=== PATIENT | female | born 1955 | race Caucasian/White ===

== ENCOUNTER 2018-03-04 22:36 | Outpatient (CLI) | payer OTHER, MEDICAID | END 2018-03-04 22:37 | disposition critical access hospital (66) | LOC: EMS 22:36 | PROVIDERS: ATTEND Surgery | DX: R53.1 Weakness (principal); M79.604 Pain in right leg; R51 Headache; W18.30XA Fall on same level, unspecified, initial encounter; Y92.009 Unspecified place in unspecified non-institutional (private) residence as the place of occurrence of the external cause | CPT/HCPCS: A0425; A0429; A0999 ==

== ENCOUNTER 2018-03-04 22:52 | Inpatient (IN) | payer OTHER, MEDICAID ==
--- NOTE | 2018-03-04 22:59 | ED Physician Documentation ---
PD HPI LOWER EXT INJURY - Stated complaint Stated Complaint: FALL, LEFT LOWER WEAKNESS - History obtained from History obtained from: Patient, EMS - History of Present Illness PD HPI LOW EXT INJURY LOCATION: Right, Hip, Upper leg Type of injury: Fall Where injury occurred: Home Timing - onset: Today Timing - details: Abrupt onset Worsened by: Moving, Palpating Associated symptoms: Weakness Recently seen: Not recently seen - Additional information Additional information: Patient is a 63 year old female with a history of a prior cva, with left sided deficit who is presenting to the emergency department for fall. Patient was walking with her walker, felt weak and fell landing on her right side. patient denies any loc. Patient complains of spasm and pain in her right upper leg. Review of Systems Ten Systems: 10 systems reviewed and negative PD PAST MEDICAL HISTORY - Past Medical History Cardiovascular: Hypertension, High cholesterol Endocrine/Autoimmune: Type 2 diabetes Musculoskeletal: Chronic back pain - Past Surgical History Past Surgical History: Yes Ortho: Carpal Tunnel surgery, Other - Present Medications Home Medications: Ambulatory Orders Medication Instructions Recorded Confirmed Glimepiride [Amaryl] 4 mg PO BID 03/10/15 03/10/15 Omeprazole [Prilosec] 40 mg PO DAILY 03/10/15 03/10/15 Zolpidem [Ambien] 10 mg PO HS 03/10/15 03/10/15 Amiodarone [Pacerone] 100 mg PO DAILY 03/04/18 Clopidogrel Bisulfate [Clopidogrel] 75 mg PO DAILY 03/04/18 Diltiazem HCl [Diltiazem 24Hr ER] 120 mg PO DAILY 03/04/18 Empagliflozin [Jardiance] 25 mg PO DAILY 03/04/18 Escitalopram [Lexapro] 20 mg PO DAILY 03/04/18 Nebivolol HCl [Bystolic] 10 mg PO DAILY 03/04/18 Rivaroxaban [Xarelto] 10 mg PO DAILY 03/04/18 - Allergies Allergies/Adverse Reactions: Allergies Allergy/AdvReac Type Severity Reaction Status Date / Time ciprofloxacin HCl * Allergy Unknown Verified 03/04/18 22:59 [From Cipro] - Social History Does the pt smoke?: No Smoking Status: Never smoker Does the pt drink ETOH?: No Does the pt have substance abuse?: No - Immunizations Immunizations are current?: Yes - POLST Patient has POLST: No PD ED PE NORMAL - Vitals Vital signs reviewed: Yes - General General: Alert and oriented X 3 - HEENT HEENT: Atraumatic - Cardiac Cardiac: RRR - Respiratory Respiratory: No respiratory distress - Abdomen Abdomen: Non distended - Derm Derm: Normal color - Extremities Extremities: No deformity - Neuro Neuro: Alert and oriented X 3 PD ED PE EXPANDED - HEENT HEENT: Dry mucous membranes - Extremities Extremities: Right hip, Right thigh (mild tenderness to palpatioin), Pedal Pulses Present, Sensory intact, Vascular intact, Tendon intact. No: Cold foot Results - Vitals Vitals: Vital Signs - 24 hr 03/04/18 22:53 Temperature 36.5 C Heart Rate 78 Respiratory 16 Rate Blood Pressure 174/81 H O2 Saturation 97 Oxygen O2 Source Room air - EKG (time done) 0016 Rate: Rate (enter#) (72) Rhythm: NSR [place]: Normal Ischemia: Q waves Compare to prior EKG: Old EKG unavailable - Labs Labs: Laboratory Tests 03/04/18 03/04/18 23:05 23:35 WBC 8.3 RBC 4.49 Hgb 14.5 Hct 43.2 MCV 96.2 MCH 32.2 H MCHC 33.5 RDW 13.6 Plt Count 288 MPV 8.4 Neut # (Auto) 4.4 Lymph # (Auto) 3.2 Cooper # (Auto) 0.4 Eos # (Auto) 0.2 Baso # (Auto) 0.1 Absolute Nucleated RBC 0.01 Nucleated RBC % 0.1 Sodium 137 Potassium 4.6 Chloride 103 Carbon Dioxide 25 Anion Gap 9.0 BUN 16 Creatinine 0.9 Estimated GFR (MDRD) 63 L Glucose 207 H Calcium 9.1 Phosphorus 3.9 Magnesium 2.4 Total Bilirubin 0.6 AST 23 ALT 27 Alkaline Phosphatase 124 H Total Protein 7.3 Albumin 4.0 Globulin 3.3 Albumin/Globulin Ratio 1.2 Lipase 29 - Rads (name of study) right hip Radiology: Final report received (sub capital fracture) PD MEDICAL DECISION MAKING - ED course Complexity details: reviewed old records, reviewed results, re-evaluated patient , considered differential, d/w patient, d/w mortgage consultant ED course: Patient was seen and examined at bedside. labs were drawn and imaging was ordered. When patient returned from imaging the results were reviewed and consistent with a right hip fracture. Dr. Reardon, orthopedist was contacted and the case was discussed with him. He stated that the patient should be admitted to the hospitalist and he would consult. Hospitalist was contacted and the case was discussed with her. patient was admitted for further care. - Sepsis Event Vital Signs: Vital Signs - 24 hr 03/04/18 22:53 Temperature 36.5 C Heart Rate 78 Respiratory 16 Rate Blood Pressure 174/81 H O2 Saturation 97 Oxygen O2 Source Room air Departure - Departure Disposition: 67 [facility] DC/Xfer Clinical Impression: Hip fracture, right Condition: Good
[2018-03-04 23:19] LABS: BASOPHILS # (AUTO) 0.1 10^3/uL (0.0-0.1); BASOPHILS % (AUTO) 0.9 %; EOSINOPHILS # (AUTO) 0.2 10^3/uL (0.0-0.7); EOSINOPHILS % (AUTO) 2.2 %; HGB - HEMOGLOBIN 14.5 g/dL (12.0-16.0); LYMPHOCYTES # (AUTO) 3.2 10^3/uL (1.5-3.5); LYMPHOCYTES % (AUTO) 38.2 %; MEAN CORPUSCULAR HEMOGLOBIN 32.2 pg (27.0-31.0); MEAN CORPUSCULAR HGB CONC 33.5 g/dL (32.0-36.0); MEAN CORPUSCULAR VOLUME 96.2 fL (81.0-99.0); MEAN PLATELET VOLUME 8.4 fL (7.9-10.8); MONOCYTES # (AUTO) 0.4 10^3/uL (0.0-1.0); MONOCYTES % (AUTO) 5.3 %; NEUTROPHILS # (AUTO) 4.4 10^3/uL (1.5-6.6); NEUTROPHILS % (AUTO) 53.4 %; PLT - PLATELET COUNT 288 10^3/uL (130-450); RED BLOOD COUNT 4.49 10^6/uL (4.20-5.40); RED CELL DISTRIBUTION WIDTH 13.6 % (12.0-15.0); WHITE BLOOD COUNT 8.3 x10^3/uL (4.8-10.8)
[2018-03-04] MEDS ORDERED: SODIUM CHLORIDE 0.9% 1,000 ML IV SCH (23:45)
[2018-03-04] MEDS ORDERED: ACETAMINOPHEN 500 MG TABLET PO STA (23:45)
--- NOTE | 2018-03-04 23:49 | XRAY Report ---
Procedure Date: 03/04/2018 Accession Number: [id number] / [id number] Procedure: XR - Hip w/Pelvis 2-3V RT CPT Code: FULL RESULT: EXAM: RIGHT HIP AND PELVIS RADIOGRAPHY EXAM DATE: 03/04/2018 11:21 PM. HISTORY: Fall, right leg pain. COMPARISONS: None. TECHNIQUE: 1 view of the pelvis and 1 view of the hip. FINDINGS: Bones: Subcapital right hip fracture. Joints: No dislocation seen. Joint spaces are fairly well preserved for age. Soft Tissues: Vascular calcifications. IMPRESSION: 1. Subcapital right hip fracture. RADIA
[2018-03-04 23:55] LABS: ALBUMIN/GLOBULIN RATIO 1.2 (1.0-2.2); BILIRUBIN,TOTAL 0.6 mg/dL (0.2-1.0); CALCIUM 9.1 mg/dL (8.5-10.3); CREATININE 0.9 mg/dL (0.4-1.0); MAGNESIUM 2.4 mg/dL (1.7-2.8); PHOSPHORUS 3.9 mg/dL (2.5-4.6); TOTAL PROTEIN 7.3 g/dL (6.7-8.2)
[2018-03-04] MEDS ORDERED: ONDANSETRON 4 MG/2 ML VIAL IVP PRN (23:59)
[2018-03-05] MEDS ORDERED: MORPHINE 10 MG/ML VIAL IVP STA (00:04)
[2018-03-05 00:19] LABS: INR 1.3 (0.8-1.2); PT - PROTHROMBIN TIME 14.6 secs (9.9-12.6)
--- NOTE | 2018-03-05 01:12 | HISTORY & PHYSICAL EXAMINATION ---
Chief Complaint - Chief Complaint Chief Complaint: Ground level fall with subcapital R hip fracture History of Present Illness - Admitted From Admitted From:: ED. Orders written 03/04 at 23:59 - History Obtained From Records Reviewed: [facility] History obtained from: Patient and Sister Exam Limitations: psychomotor slowing and memory loss from stroke residual - History of Present Illness HPI Comment/Other: Gato Patel is a 63 y/o F with a PMH of a CVA with residual L sided weakness , gait instability, and bowel/bladder incontinence; atrial fibrillation on rivaroxaban; CAD s/p stent placement; DM type 2; and depression who presented with a subcapital R hip fracture sustained in [facility] around 2100 this evening. She was ambulating with her walker, tripped, fell backwards onto her R hip, and was unable to return to standing or bear weight on her RLE. She denies any dizziness or syncope leading up to the fall or loss of consciousness. Her sister , who she has been staying with, assisted her off of the floor and pt was diagnosed radiographically upon presentation to the ED. Prior to this event, Ms. Patel was in her usual state of health which was been complicated by the residual deficits from her CVA which have left her unable to reside alone (mostly due to her gait instability, as she reports that she maintains independence in her ADLs). For the past month she has been vacationing in [place] and staying with her sister while her is out of the country visiting family. She does endorse that she had a previous fall in October of this year which was preceded by a syncopal episode where she fell and hit her head, resulting in a nonoperative foot fracture and "blood spots on her brain", which required a 3 day hospitalization. She also reports that she had a coronary stent placed approximately 2 months ago as the result of an abnormal stress test, she is unsure of the details of this procedure, but was started on clopidogrel at that time. She also states she had either a Heart Link or Reveal Loop put in as part of her atrial fib work up as well. On ROS prior to surgery: she denies chest pain, BARNETT, SOB at rest. There is no hx of CHF or valvular heart disease She has no palpitations with her positive hx of afib. There is no cough, wheezing, chest congestion. She did have a coronary stent 2 months ago but her memory seems impaired from her stroke. There is no hx of CKD. History - Past Medical History Cardiovascular: reports: Hypertension, High cholesterol, Coronary artery disease , Atrial fibrillation Neuro: reports: CVA (with residual L sided weakness, gait instability, and bowel /bladder incontinence), Headaches (daily since CVA) Endocrine/Autoimmune: reports: Type 2 diabetes (for 6 years, without complications, not on insulin) GI: reports: Other (Stool Incontinence) : reports: Incontinence Psych: reports: Depression Musculoskeletal: reports: Osteoarthritis, Chronic back pain Derm: reports: Other (incontinence dermatitis) MRSA Hx?: No - Past Surgical History Ortho: reports: Shoulder arthroplasty, Carpal Tunnel surgery /CRYSTALIZER: reports: Hysterectomy (with bladder lift) Cardiovascular: reports: Coronary stent - Family & Social History Family History: Mother: , Father: Family History Comment/Other: Pt unsure of ages at but stated both were in their 70s and both of CHF. Living arrangement: At home Living Situation: With spouse/s.o. Social History Notes: Pt lives in [place], [place] and has been staying with her sister, Jessica, who resides in [place] for the past month while her is visiting family in [facility]. Since her CVA last year, she has had unsteady gait and falls, so cannot live alone. She ambulates with a walker and maintains independence in ADLs. 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 2 adult children. - Substance History Use: Uses substance without health or social issues: NONE - POLST Patient has POLST: No POLST Status: Full Code Meds/Allgy - Home Medications Home Medications: Ambulatory Orders Medication Instructions Recorded Confirmed Glimepiride [Amaryl] 4 mg PO BID 03/10/15 03/10/15 Omeprazole [Prilosec] 40 mg PO DAILY 03/10/15 03/10/15 Zolpidem [Ambien] 10 mg PO HS 03/10/15 03/10/15 Amiodarone [Pacerone] 100 mg PO DAILY 03/04/18 Clopidogrel Bisulfate [Clopidogrel] 75 mg PO DAILY 03/04/18 Diltiazem HCl [Diltiazem 24Hr ER] 120 mg PO DAILY 03/04/18 Empagliflozin [Jardiance] 25 mg PO DAILY 03/04/18 Escitalopram [Lexapro] 20 mg PO DAILY 03/04/18 Nebivolol HCl [Bystolic] 10 mg PO DAILY 03/04/18 Rivaroxaban [Xarelto] 10 mg PO DAILY 03/04/18 Evolocumab [Repatha Sureclick] 140 mg SQ DAILY 03/05/18 03/05/18 - Allergies Allergies/Adverse Reactions: Allergies Allergy/AdvReac Type Severity Reaction Status Date / Time ciprofloxacin HCl * Allergy Hives Verified 03/05/18 02:07 [From [facility]] Review of Systems - Constitutional Constitutional: denies: Fatigue, Fever, Chills, Malaise - Eyes Eyes: denies: Pain, Irritation, Blurred vision - Ears, Nose & Throat Ears, Nose & Throat: denies: Hearing loss, Sore throat, Hoarseness - Cardiovascular Cariovascular: reports: Irregular heart rate. denies: Palpitations, Chest pain , Edema, Syncope, Exertional dyspnea, Orthopnea - Respiratory Respiratory: denies: Cough, Wheezing, SOB at rest, SOB with exertion - Gastrointestinal Gastrointestinal: denies: Abdominal pain, Abdominal distention, Constipation, Change in bowel habits, Black stools, Bloody stools, Nausea, Vomiting - Genitourinary Genitourinary: reports: Incontinence (stool and urine since CVA), Other (Rash to epifanio area). denies: Dysuria, Hematuria, Urethral discharge - Musculoskeletal Musculoskeletal: reports: Muscle pain (RLE cramping pain that radiates down leg , "feels like a charley horse"), Back pain (chronic, recieving steroid injections every 3 months and taking PRN vicodin for pain for past 2 years), Limited range of motion (Unable to lift RLE) - Integumentary Integumentary: denies: Lesions, Dryness - Neurological Neurological: reports: Focal weakness (L sided residual weakness from CVA), Headache (Daily headaches since CVA), Pre-existing deficit, Abnormal gait ( ambulates with walker), Incoordination. denies: Dizziness, Numbness, Memory problems - Psychiatric Psychiatric: reports: Depression. denies: Suicidal - Hematologic/Lymphatic Hematologic/Lymphatic: reports: Bruising. denies: Blood clots, Bleeding tendencies - All Other Systems All Other Systems: reports: Reviewed and negative Exam - Vital Signs Reviewed Vital Signs: Yes Vital Signs: Selected Entries 03/05/18 01:18 Temperature 37.2 C Heart Rate [ 79 Brachial] Respiratory 20 Rate Blood Pressure 149/73 H [Left Brachial artery] O2 Saturation 92 - Physical Exam General Appearance: positive: No acute distress, Alert, Other (White who has flattened affect, slow to respond, looks stated age.) Eyes Bilateral: positive: PERRL, EOMI, No scleral icterus ENT: positive: No signs of dehydration Neck: positive: Trachea midline Respiratory: positive: Chest non-tender, No respiratory distress, Breath sounds nml Cardiovascular: positive: Regular rate & rhythm, No murmur. negative: Gallop/S4 , Friction rub Peripheral Pulses: positive: 1+ Abdomen: positive: Non-tender, No organomegaly, Nml bowel sounds, No distention Skin: positive: Warm, Dry, Skin rash (incontinence dermatitis on labia) Extremities: positive: No pedal edema, Other (Mild tenderness to lateral R thigh , limited ROM, unable to lift R leg. Small scattered healing bruises to L anne.) . negative: Joint swelling Neurologic/Psychiatric: positive: Oriented x3, Sensation nml, Weakness (L sided weakness, at baseline since CVA per patient). negative: Mood/affect nml (vague at times: thinks that link insertion was 2 weeks ago but here for a month), Sensory loss, Facial droop Conclusion/Plan - Problem List (1) Hip fracture, right Conclusion/Plan: Pelvic x-ray shows a supcapital R hip fracture without dislocation. We will admit to evaluate her for surgery and consult the orthopedic surgery team. * Orthopedic surgery consultation * NPO now for possible surgery * IV hydration with normal saline while NPO * Hold clopidogrel and rivaroxaban pending surgery * PRN IV dilaudid for pain * Bedrest Qualifiers: Encounter type: initial encounter Fracture type: closed Qualified Code(s) : S72.001A - Fracture of unspecified part of neck of right femur, initial encounter for closed fracture (2) Preop cardiovascular exam Conclusion/Plan: Ms. Patel has a PMH of atrial fibrillation on rivaroxaban, diltiazem, and amiodarone, as well as CAD s/p recent coronary stent placement (pt unclear of exactly when this took place, said within the past couple of months) said to have been in response to an abnormal stress test she had during her afib work up after her CVA last year. She most recently (approx. 1 month ago) had what sounds like a Reveal Linq (pt was unsure of actual device name) placed for unclear reasons, but I suspect that it was for work up of a syncopal episode she experienced in October. We have attempted to contact her PCP for more information. * Revised Cardiac Risk Assessment: * 2 points (hx of ischemic cardiac disease and hx of cerebrovascular disease), Class III risk, indicating a 6.6% risk of major cardiac event (3) Atrial fibrillation Conclusion/Plan: History of atrial fibrillation, diagnosed in 2017 after CVA, on rivaroxaban, diltiazem, and amiodarone. CHADS-VASC score 4, indicating moderate/high stroke risk. Admission EKG shows NSR in 70s. Will attempt to find outside records with further information. * Continue home diltiazem and amiodarone * Hold rivaroxaban for surgery, restart anticoagulation immediately following surgery given moderate/high stroke risk Qualifiers: Atrial fibrillation type: unspecified Qualified Code(s): I48.91 - Unspecified atrial fibrillation (4) Presence of stent in coronary artery in patient with coronary artery disease Conclusion/Plan: Patient reports recent coronary stent placement (unclear of date and details, approximated 2 months ago) in response to an abnormal stress test and was then subsequently started on clopidogrel. * Continue home beta dolly (nebivolol) * Hold clopidogrel, restart after surgery given presumed BENJAMÍN * Follow up on outside records * Check post op troponins. (5) History of stroke with residual deficit Conclusion/Plan: Previous residual deficits of L sided weakness, gait instability, and bowel/ bladder incontinence may complicate postoperative rehabilitation process. Patient was ambulating with walker prior to injury and gait instability appears to have led to fall. * consult PT/OT after surgery (6) Diabetes type 2, controlled Conclusion/Plan: Reportedly well controlled on oral antiglycemics and without complications for past 6 years. * Hold home empagliflozin and glimepiride * Start medium dose SSI with q6h POC blood glucose testing while NPO * HgbA1C with am labs Qualifiers: Diabetes mellitus intermediate project manager insulin use: without intermediate use Diabetes mellitus complication status: without complication Qualified Code(s): E11.9 - Type 2 diabetes mellitus without complications (7) Hyperlipidemia Conclusion/Plan: Unclear history of hyperlipidemia. Ms. Patel was recently started on evolocumab, she believes after her coronary stent placement, presumably for hyperlipidemia and/or secondary prevention of ASCVD. * Continue home evolocumab * Will consider cholesterol levels if unable to find outside records especially since evolocumab is for secondary treatment of familial hyperlipidemia or primary treatment for hyperlipidemia with a statin. Qualifiers: Hyperlipidemia type: unspecified Qualified Code(s): E78.5 - Hyperlipidemia , unspecified (8) Incontinence associated dermatitis Conclusion/Plan: Hx of incontinence of urine and stool since prior stroke with utilization of adult diapers. Pt reports a rash to epifanio area for past month, seen by PRODUCTION CONTROL SCHEDULER prior to coming to [place] and has been treating with an unknown prescription ointment with improvement of symptoms. States it is much improved since initial diagnosis. Redness and irritation noted to labia. Endorses some pruitis (improved since diagnosis) but denies pain, discharge, or lesions. Sister encouraged to bring name of ointment when she is able to retrieve it from home, in the mean time, barrier cream applied by nursing staff. (9) Depression Conclusion/Plan: Continue home escitalopram Qualifiers: Depression Type: unspecified Qualified Code(s): F32.9 - Major depressive disorder, single episode, unspecified (10) Osteoarthritis Conclusion/Plan: Osteoarthritis of "low back" with chronic low back pain treated with steroid injections every 3 months and PRN vicodin for past 2 years. Reports taking approx 2 vicodins per day. * Monitor for adequate pain control * PRN IV dilaudid Qualifiers: Osteoarthritis location: spine Spinal region: unspecified - Lab Results Lab results reviewed: Yes Fish Bones: 03/05/18 04:30 03/05/18 04:30 - Diagnostic Imaging Results Diagnostic Imaging Results: positive: Final report reviewed Diagnostic Imaging Results Comments: Radiograph of pelvis shows subcapital R hip fracture without dislocation - EKG Results EKG Comparison: Old EKG unavailable EKG Findings: Admission EKG shows normal sinus rhythm Core Measures - Anticipated LOS I expect patient to be DC'd or transferred within 96 hours.: Yes - DVT/VTE - Prophylaxis VTE/DVT Device ordered at admit?: Yes Not Ordered - Medical Reason: Not indicated (On rivaroxaban)
[2018-03-05] MEDS: HYDROmorphone 0.5 MG/0.5 ML SYRINGE IVP PRN ×6 (01:34→21:09)
[2018-03-05] MEDS: MIN OIL/DIMETHICON/COCONUT OIL 92 GM TUBE TOP PRN (01:34)
[2018-03-05] MEDS: SODIUM CHLORIDE FLUSH 0.9% 10 ML SYRINGE IVP SCH ×3 (01:34→16:02)
[2018-03-05 04:55] LABS: CALCIUM 8.8 mg/dL (8.5-10.3); CREATININE 0.7 mg/dL (0.4-1.0)
[2018-03-05 05:00] LABS: BASOPHILS % (AUTO) 0.4 %; EOSINOPHILS % (AUTO) 0.3 %; HGB - HEMOGLOBIN 13.4 g/dL (12.0-16.0); LYMPHOCYTES # (AUTO) 1.9 10^3/uL (1.5-3.5); LYMPHOCYTES % (AUTO) 16.7 %; MEAN CORPUSCULAR HEMOGLOBIN 32.1 pg (27.0-31.0); MEAN CORPUSCULAR HGB CONC 33.9 g/dL (32.0-36.0); MEAN CORPUSCULAR VOLUME 94.5 fL (81.0-99.0); MEAN PLATELET VOLUME 8.4 fL (7.9-10.8); MONOCYTES # (AUTO) 0.7 10^3/uL (0.0-1.0); MONOCYTES % (AUTO) 6.6 %; NEUTROPHILS # (AUTO) 8.5 10^3/uL (1.5-6.6); PLT - PLATELET COUNT 254 10^3/uL (130-450); RED BLOOD COUNT 4.18 10^6/uL (4.20-5.40); RED CELL DISTRIBUTION WIDTH 13.3 % (12.0-15.0); WHITE BLOOD COUNT 11.2 x10^3/uL (4.8-10.8)
[2018-03-05] MEDS ORDERED: diazePAM 5 MG TABLET PO SCH (05:00)
[2018-03-05 05:29] LABS: HB2 TOTAL 14.9 g/dL; HEMOGLOBIN A1C 1.05 g/dL; HEMOGLOBIN A1C % 8.6 % (4.6-6.2)
[2018-03-05] MEDS: INSULIN REGULAR HUMAN 100 UNIT/1 ML 10 ML MDV SUBQ SCH ×3 (06:14→16:02)
[2018-03-05] MEDS: POLYETHYLENE GLYCOL 3350 17 GM PACKET PO SCH (07:40)
[2018-03-05] MEDS: diazePAM 5 MG TABLET PO PRN ×3 (08:01→20:32)
[2018-03-05] MEDS: AMIODARONE 200 MG TABLET PO SCH (10:50)
[2018-03-05] MEDS: diltiaZEM CD 120 MG CAPSULE PO SCH (10:50)
[2018-03-05] MEDS: INSULIN ASPART 300 UNIT/3 ML PEN SUBQ SCH ×3 (12:07→20:34)
[2018-03-05] MEDS: HYDROcod/ACETAM 5/325 MG TABLET PO PRN ×2 (12:24→23:36)
[2018-03-05] MEDS: SODIUM CHLORIDE 0.9% 1,000 ML IV SCH (13:13)
--- NOTE | 2018-03-05 14:46 | PROVIDER PROGRESS NOTE ---
Subjective - Prog Note Date Prog Note Date: 03/05/18 - Subjective Pt reports feeling: Improved Subjective: pt report her hip pain is controlled. Because pt took her Xarelto and Plavix yesterday, the hip repair is hold. Follow up orthopedics for hip repair Current Medications - Current Medications Current Medications: Active Medications Hydrocodone Bitart/Acetaminophen ([place] 5/325) 1 tab PO BID PRN PRN Reason: PAIN Last Admin: 03/05/18 12:24 Dose: 1 tab Amiodarone HCl (Pacerone) 200 mg PO DAILY [facility] Last Admin: 03/05/18 10:50 Dose: 200 mg Diazepam (Valium) 5 mg PO TID PRN PRN Reason: Anxiety Last Admin: 03/05/18 13:45 Dose: 5 mg Diltiazem HCl (Cardizem Cd) 120 mg PO DAILY [facility] Last Admin: 03/05/18 10:50 Dose: 120 mg Hydromorphone HCl (Dilaudid Inj Syringe) 0.5 mg IVP Q2H PRN PRN Reason: Pain 8 to 10 Last Admin: 03/05/18 10:50 Dose: 0.5 mg Sodium Chloride (Normal Saline 0.9%) 1,000 mls @ 75 mls/hr IV .[id number] [facility] Last Admin: 03/05/18 13:13 Dose: 75 mls/hr Insulin Aspart (Novolog) 1 - 9 unit SUBQ 0800,1200,1700,2100 ACE PRN Reason: Protocol Last Admin: 03/05/18 12:07 Dose: 1 unit Insulin Human Regular (Novolin R) 1 - 9 unit SUBQ Q6HR [facility] PRN Reason: Protocol Last Admin: 03/05/18 10:32 Dose: Not Given Mineral Oil (Cavilon) 1 applic TOP PRN PRN PRN Reason: Skin Care Last Admin: 03/05/18 01:34 Dose: 1 applic Ondansetron HCl (Zofran Inj) 4 mg IVP Q6HR PRN PRN Reason: Nausea / Vomiting (Nebivolol Hcl [ (Bystolic] 10 Mg) Tab) 1 each PO BID [facility] Last Admin: 03/05/18 11:58 Dose: 1 each Polyethylene Glycol (Miralax) 17 gm PO DAILY [facility] Last Admin: 03/05/18 07:40 Dose: Not Given Sodium Chloride (Normal Saline Flush 0.9%) 10 ml IVP PRN PRN PRN Reason: NEEDED PER PROVIDER ORDERS Sodium Chloride (Normal Saline Flush 0.9%) 10 ml IVP 0100,0900,1700 ACE Last Admin: 03/05/18 07:40 Dose: Not Given Zolpidem [Ambien] 10 mg PO QPM 03/10/15 Amiodarone [Pacerone] 200 mg PO DAILY 03/04/18 Clopidogrel Bisulfate [Clopidogrel] 75 mg PO DAILY 03/04/18 Diltiazem HCl [Diltiazem 24Hr ER] 120 mg PO DAILY 03/04/18 Escitalopram [Lexapro] 10 mg PO DAILY 03/04/18 Nebivolol HCl [Bystolic] 10 mg PO BID 03/04/18 Rivaroxaban [Xarelto] 20 mg PO DAILY 03/04/18 Empagliflozin [Jardiance] 25 mg PO DAILY 03/05/18 Evolocumab [Repatha Sureclick] 140 mg SUBQ Q14D 03/05/18 HYDROcod/ACETAM 5/325 [[place] 5/325] 1 tab PO BID PRN 03/05/18 Pramipexole Di-HCl [Mirapex ER] 0.75 mg PO QPM PRN 03/05/18 Objective - Vital Signs/Intake & Output Reviewed Vital Signs: Yes Vital Signs: Vital Signs x48h Temp Pulse Resp BP Pulse Ox 03/05/18 10:49 75 140/68 H 03/05/18 07:39 36.9 C 72 19 120/71 94 Intake & Output: Intake & Output 03/02/18 03/03/18 03/04/18 03/05/18 23:59 23:59 23:59 23:59 Intake Total 1480.0 Output Total 450 Balance 1030.0 - Objective General Appearance: positive: No acute distress, Alert. negative: Lethargic Eyes Bilateral: positive: Normal inspection, PERRL, No lid inflammation, Conjunctivae nml ENT: positive: ENT inspection nml, Pharynx nml, No signs of dehydration. negative: Purulent nasal drainage, Pharyngeal erythema, Oral lesions Neck: positive: Nml inspection, Thyroid nml, No JVD, Trachea midline. negative : Thyromegaly, Lymphadenopathy (R), Lymphadenopathy (L), Stiff neck, Carotid bruit, Swelling/bruising, Tracheal deviation Respiratory: positive: Chest non-tender, No respiratory distress, Breath sounds nml. negative: Wheezes, Rales, Rhonchi Cardiovascular: positive: Regular rate & rhythm, No murmur, No gallop. negative : Irregularly irregular, Extrasystoles, Tachycardia, Bradycardia, JVD present, Systolic murmur, Diastolic murmur Peripheral Pulses: 2+ Radial (R), 2+ Radial (L), 2+ Dorsalis pedis (R), 2+ Dorsalis pedis (L) Abdomen: positive: Non-tender, No organomegaly, Nml bowel sounds, No distention. negative: Tenderness, Guarding, Rebound Back: positive: Nml inspection. negative: CVA tenderness (R), CVA tenderness (L ) Skin: positive: Color nml, No rash, Warm, Dry. negative: Cyanosis, Diaphoresis , Pallor Extremities: negative: Calf tenderness, Joint swelling, Doni's sign/cords Neurologic/Psychiatric: positive: Oriented x3, Mood/affect nml. negative: Weakness, Sensory loss, Facial droop, Slurred/abnml speech, Depressed mood/ affect - Lab Results Fish Bones: 03/05/18 04:30 03/05/18 04:30 Other Labs: Lab Results x24hrs 03/05/18 03/05/18 03/05/18 Range/Units 04:30 04:30 04:30 WBC 11.2 H (4.8-10.8) x10^3/uL RBC 4.18 L (4.20-5.40) 10^6/uL Hgb 13.4 (12.0-16.0) g/dL Hct 39.5 (37.0-47.0) % MCV 94.5 (81.0-99.0) fL MCH 32.1 H (27.0-31.0) pg MCHC 33.9 (32.0-36.0) g/dL RDW 13.3 (12.0-15.0) % Plt Count 254 (130-450) 10^3/uL MPV 8.4 (7.9-10.8) fL Neut # (Auto) 8.5 H (1.5-6.6) 10^3/uL Lymph # (Auto) 1.9 (1.5-3.5) 10^3/uL [place] # (Auto) 0.7 (0.0-1.0) 10^3/uL Eos # (Auto) 0.0 (0.0-0.7) 10^3/uL Baso # (Auto) 0.0 (0.0-0.1) 10^3/uL Absolute Nucleated RBC 0.00 x10^3/uL Nucleated RBC % 0.0 /100WBC PT (9.9-12.6) secs INR (0.8-1.2) APTT (24.9-33.3) secs Sodium 137 (135-145) mmol/L Potassium 4.1 (3.5-5.0) mmol/L Chloride 103 (101-111) mmol/L Carbon Dioxide 25 (21-32) mmol/L Anion Gap 9.0 (6-13) BUN 14 (6-20) mg/dL Creatinine 0.7 (0.4-1.0) mg/dL Estimated GFR (MDRD) 85 L (>89) Glucose 214 H (70-100) mg/dL Glycated Hemoglobin 8.6 H (4.6-6.2) % Estim Average Glucose 200 H (70-100) Calcium 8.8 (8.5-10.3) mg/dL 03/05/18 Range/Units 00:10 WBC (4.8-10.8) x10^3/uL RBC (4.20-5.40) 10^6/uL Hgb (12.0-16.0) g/dL Hct (37.0-47.0) % MCV (81.0-99.0) fL MCH (27.0-31.0) pg MCHC (32.0-36.0) g/dL RDW (12.0-15.0) % Plt Count (130-450) 10^3/uL MPV (7.9-10.8) fL Neut # (Auto) (1.5-6.6) 10^3/uL Lymph # (Auto) (1.5-3.5) 10^3/uL [place] # (Auto) (0.0-1.0) 10^3/uL Eos # (Auto) (0.0-0.7) 10^3/uL Baso # (Auto) (0.0-0.1) 10^3/uL Absolute Nucleated RBC x10^3/uL Nucleated RBC % /100WBC PT 14.6 H (9.9-12.6) secs INR 1.3 H (0.8-1.2) APTT 27.4 (24.9-33.3) secs Sodium (135-145) mmol/L Potassium (3.5-5.0) mmol/L Chloride (101-111) mmol/L Carbon Dioxide (21-32) mmol/L Anion Gap (6-13) BUN (6-20) mg/dL Creatinine (0.4-1.0) mg/dL Estimated GFR (MDRD) (>89) Glucose (70-100) mg/dL Glycated Hemoglobin (4.6-6.2) % Estim Average Glucose (70-100) Calcium (8.5-10.3) mg/dL ABX Reporting Has patient been on IV antibiotics over the past 48 hours?: No Assessment/Plan - Problem List (1) Hip fracture, right Impression: Conclusion/Plan: 03/05 hip repair will be hold today per orthopedics, pt took Xaralto on yesterday , will follow up orthopedics. refer from update" Rivaroxaban can be discontinued approximately two to three days before a procedure" "Rivaroxaban can be resumed postoperatively when hemostasis has been achieved, at the same dose the patient was receiving preoperatively." continue pain control resume home norco regimen Pelvic x-ray shows a supcapital R hip fracture without dislocation. We will admit to evaluate her for surgery and consult the orthopedic surgery team. * Orthopedic surgery consultation * NPO now for possible surgery * IV hydration with normal saline while NPO * Hold clopidogrel and rivaroxaban pending surgery * PRN IV dilaudid for pain * Bedrest (2) Preop cardiovascular exam Conclusion/Plan: Ms. Patel has a PMH of atrial fibrillation on rivaroxaban, diltiazem, and amiodarone, as well as CAD s/p recent coronary stent placement (pt unclear of exactly when this took place, said within the past couple of months) said to have been in response to an abnormal stress test she had during her afib work up after her CVA last year. She most recently (approx. 1 month ago) had what sounds like a Reveal Linq (pt was unsure of actual device name) placed for unclear reasons, but I suspect that it was for work up of a syncopal episode she experienced in October. We have attempted to contact her PCP for more information. * Revised Cardiac Risk Assessment: * 2 points (hx of ischemic cardiac disease and hx of cerebrovascular disease), Class III risk, indicating a 6.6% risk of major cardiac event (3) Atrial fibrillation Conclusion/Plan: History of atrial fibrillation, diagnosed in 2017 after CVA, on rivaroxaban, diltiazem, and amiodarone. CHADS-VASC score 4, indicating moderate/high stroke risk. Admission EKG shows NSR in 70s. Will attempt to find outside records with further information. * Continue home diltiazem and amiodarone * Hold rivaroxaban for surgery, restart anticoagulation immediately following surgery given moderate/high stroke risk (4) Presence of stent in coronary artery in patient with coronary artery disease Conclusion/Plan: Patient reports recent coronary stent placement (unclear of date and details, approximated 2 months ago) in response to an abnormal stress test and was then subsequently started on clopidogrel. * Continue home beta dolly (nebivolol) * Hold clopidogrel, restart after surgery given presumed BENJAMÍN * Follow up on outside records * Check post op troponins. (5) History of stroke with residual deficit Conclusion/Plan: Previous residual deficits of L sided weakness, gait instability, and bowel/ bladder incontinence may complicate postoperative rehabilitation process. Patient was ambulating with walker prior to injury and gait instability appears to have led to fall. * consult PT/OT after surgery (6) Diabetes type 2, controlled Conclusion/Plan: 03/05, start insulin slide scale on eating status, ACHS, hypoglycemia Reportedly well controlled on oral antiglycemics and without complications for past 6 years. * Hold home empagliflozin and glimepiride * Start medium dose SSI with q6h POC blood glucose testing while NPO * HgbA1C with am labs (7) Hyperlipidemia Conclusion/Plan: Unclear history of hyperlipidemia. Ms. Patel was recently started on evolocumab, she believes after her coronary stent placement, presumably for hyperlipidemia and/or secondary prevention of ASCVD. * Continue home evolocumab * Will consider cholesterol levels if unable to find outside records especially since evolocumab is for secondary treatment of familial hyperlipidemia or primary treatment for hyperlipidemia with a statin. (8) Incontinence associated dermatitis Conclusion/Plan: Hx of incontinence of urine and stool since prior stroke with utilization of adult diapers. Pt reports a rash to epifanio area for past month, seen by [facility] [facility] prior to coming to [place] and has been treating with an unknown prescription ointment with improvement of symptoms. States it is much improved since initial diagnosis. Redness and irritation noted to labia. Endorses some pruitis (improved since diagnosis) but denies pain, discharge, or lesions. Sister encouraged to bring name of ointment when she is able to retrieve it from home, in the mean time, barrier cream applied by nursing staff. (9) Depression Conclusion/Plan: Continue home escitalopram (10) Osteoarthritis Conclusion/Plan: 03/05 continue pain control resume home [place] regimen PRN IV dilaudid Add diazepam PRN Osteoarthritis of "low back" with chronic low back pain treated with steroid injections every 3 months and PRN vicodin for past 2 years. Reports taking approx 2 vicodins per day. * Monitor for adequate pain control * PRN IV dilaudid Qualifiers: Encounter type: initial encounter Fracture type: closed Qualified Code(s) : S72.001A - Fracture of unspecified part of neck of right femur, initial encounter for closed fracture
--- NOTE | 2018-03-05 15:06 | CONSULTATION NOTE ---
DATE OF SERVICE: 03/05/2018 Physician: Alfred Reardon MD REFERRING PHYSICIAN: Dr. Abhinav Pinzon of the Emergency Room Department. CHIEF COMPLAINT: "My right hip aches and hurts when I move." HISTORY OF PRESENT ILLNESS: Patient is a 73-year-old woman who resides in [place] and was visiting relatives and friends up here on [facility] who apparently had a fall last evening. She was walking with a walker in part due to her prior stroke involving her left-sided weakness. When she fell last evening, she landed on the right side. Noted a mild pain and deformity to her leg. She was unable to stand or weight bear. She is complaining primarily of cramping and discomfort in her thigh area. She was taken to the emergency room here at [facility] where x-rays showed a displaced subcapital hip fracture on the right side. She was admitted to the hospital for stabilization and treatment of this fracture. PAST MEDICAL HISTORY: Significant for atrial fibrillation for which she has been on Xarelto. Last took her dose the evening of her accident. She is also on Plavix medication as well. PHYSICAL EXAMINATION: The patient's right leg shows some pain with rotation of her leg. Some mild shortening was noted of the leg today. She moves her toes satisfactory. Sensation intact as well. Good capillary filling noted. IMAGING: X-rays that were taken on her admission show a displaced and shortened subcapital hip fracture, right side. ASSESSMENT 1. Closed displaced right subcapital hip fracture. 2. History of atrial fibrillation - has been on Xarelto medication. Last dose was taken on the evening of her admission to the hospital. Currently, she is also taking Plavix medication. 3. Type 2 diabetes. 4. History of stroke resulting in left-sided weakness. PLAN: Patient will likely require a right hip hemiprostheses/arthroplasty. Since she is on Xarelto, it is recommended that we wait 24-48 hours from her last dose before proceeding with a major operation that could result in significant blood loss such as the proposed surgery. I have discussed at length with the patient and her brother with regards to treatment options and our plans. I answered their questions. They appeared to understand and are willing to proceed as planned. Stop her Plavix and her Xarelto. We will contact Dr. Piero Beal who will be following the patient beginning on Tuesday with regards to scheduling her for her upcoming hip surgery for hip fracture. TD: 03/05/2018 12:45
[2018-03-05] MEDS: SODIUM CHLORIDE FLUSH 0.9% 10 ML SYRINGE IVP PRN (21:09)
[2018-03-06] MEDS: HYDROmorphone 0.5 MG/0.5 ML SYRINGE IVP PRN ×8 (00:55→23:39)
[2018-03-06] MEDS: SODIUM CHLORIDE FLUSH 0.9% 10 ML SYRINGE IVP SCH ×3 (00:56→15:49)
[2018-03-06] MEDS: SODIUM CHLORIDE FLUSH 0.9% 10 ML SYRINGE IVP PRN ×4 (00:56→19:50)
[2018-03-06] MEDS: SODIUM CHLORIDE 0.9% 1,000 ML IV SCH ×2 (02:15→14:59)
[2018-03-06 05:48] LABS: BASOPHILS % (AUTO) 0.5 %; EOSINOPHILS # (AUTO) 0.3 10^3/uL (0.0-0.7); EOSINOPHILS % (AUTO) 4.1 %; HGB - HEMOGLOBIN 13.7 g/dL (12.0-16.0); LYMPHOCYTES # (AUTO) 1.9 10^3/uL (1.5-3.5); LYMPHOCYTES % (AUTO) 29.2 %; MEAN CORPUSCULAR HEMOGLOBIN 32.6 pg (27.0-31.0); MEAN CORPUSCULAR HGB CONC 33.3 g/dL (32.0-36.0); MEAN PLATELET VOLUME 8.2 fL (7.9-10.8); MONOCYTES # (AUTO) 0.4 10^3/uL (0.0-1.0); MONOCYTES % (AUTO) 6.5 %; NEUTROPHILS % (AUTO) 59.7 %; PLT - PLATELET COUNT 206 10^3/uL (130-450); RED BLOOD COUNT 4.21 10^6/uL (4.20-5.40); RED CELL DISTRIBUTION WIDTH 14.1 % (12.0-15.0); WHITE BLOOD COUNT 6.7 x10^3/uL (4.8-10.8)
[2018-03-06 05:54] LABS: INR 1.1 (0.8-1.2); PT - PROTHROMBIN TIME 12.5 secs (9.9-12.6)
[2018-03-06 05:57] LABS: CALCIUM 8.7 mg/dL (8.5-10.3); CREATININE 0.8 mg/dL (0.4-1.0)
[2018-03-06] MEDS: ACETAMINOPHEN 325 MG TABLET PO PRN ×2 (07:32→20:46)
[2018-03-06] MEDS: AMIODARONE 200 MG TABLET PO SCH (09:03)
[2018-03-06] MEDS: HYDROcod/ACETAM 5/325 MG TABLET PO PRN ×2 (09:03→20:46)
[2018-03-06] MEDS: POLYETHYLENE GLYCOL 3350 17 GM PACKET PO SCH (09:03)
[2018-03-06] MEDS: diltiaZEM CD 120 MG CAPSULE PO SCH (09:06)
[2018-03-06] MEDS: INSULIN ASPART 300 UNIT/3 ML PEN SUBQ SCH ×4 (09:08→20:47)
--- NOTE | 2018-03-06 10:36 | PROVIDER PROGRESS NOTE ---
Subjective - Prog Note Date Prog Note Date: 03/06/18 - Subjective Pt reports feeling: No change Subjective: pt report her pain is on the controlled. pt did have slight elevated temperature but no fever. WBC is normal. We will do CXR and UA. I called orthopedics, surgeon state pt is planned to have hip repair on tomorrow. Pt took Xarelto before she came to hospital. Current Medications - Current Medications Current Medications: Active Medications Acetaminophen (Tylenol) 650 mg PO Q4HR PRN PRN Reason: Pain or Fever > 38C (100.4F) Last Admin: 03/06/18 07:32 Dose: 650 mg Hydrocodone Bitart/Acetaminophen ([place] 5/325) 1 tab PO BID PRN PRN Reason: PAIN Last Admin: 03/06/18 09:03 Dose: 1 tab Amiodarone HCl ([place]acer[place]) 200 mg PO DAILY [facility] Last Admin: 03/06/18 09:03 Dose: 200 mg Diazepam (Valium) 5 mg PO TID PRN PRN Reason: Anxiety Last Admin: 03/05/18 20:32 Dose: 5 mg Diltiazem HCl (Cardizem Cd) 120 mg PO DAILY [facility] Last Admin: 03/06/18 09:06 Dose: 120 mg Hydromorphone HCl (Dilaudid Inj Syringe) 0.5 mg IVP Q2H PRN PRN Reason: Pain 8 to 10 Last Admin: 03/06/18 08:03 Dose: 0.5 mg Sodium Chloride (Normal Saline 0.9%) 1,000 mls @ 75 mls/hr IV .[id number] [facility] Last Admin: 03/06/18 02:15 Dose: 75 mls/hr Insulin Aspart (Novolog) 1 - 9 unit SUBQ 0800,1200,1700,2100 ACE PRN Reason: Protocol Last Admin: 03/06/18 09:08 Dose: Not Given Mineral Oil (Cavilon) 1 applic TOP PRN PRN PRN Reason: Skin Care Last Admin: 03/05/18 01:34 Dose: 1 applic Ondansetron HCl (Zofran Inj) 4 mg IVP Q6HR PRN PRN Reason: Nausea / Vomiting (Nebivolol Hcl [ (Bystolic] 10 Mg) Tab) 1 each PO BID [facility] Last Admin: 03/06/18 09:04 Dose: 1 each Polyethylene Glycol (Miralax) 17 gm PO DAILY [facility] Last Admin: 03/06/18 09:03 Dose: 17 gm Sodium Chloride (Normal Saline Flush 0.9%) 10 ml IVP PRN PRN PRN Reason: NEEDED PER PROVIDER ORDERS Last Admin: 03/06/18 05:02 Dose: 20 ml Sodium Chloride (Normal Saline Flush 0.9%) 10 ml IVP 0100,0900,1700 [facility] Last Admin: 03/06/18 00:56 Dose: 10 ml Zolpidem [Ambien] 10 mg PO QPM 03/10/15 Amiodarone [Pacerone] 200 mg PO DAILY 03/04/18 Clopidogrel Bisulfate [Clopidogrel] 75 mg PO DAILY 03/04/18 Diltiazem HCl [Diltiazem 24Hr ER] 120 mg PO DAILY 03/04/18 Escitalopram [Lexapro] 10 mg PO DAILY 03/04/18 Nebivolol HCl [Bystolic] 10 mg PO BID 03/04/18 Rivaroxaban [Xarelto] 20 mg PO DAILY 03/04/18 Empagliflozin [Jardiance] 25 mg PO DAILY 03/05/18 Evolocumab [Repatha Sureclick] 140 mg SUBQ Q14D 03/05/18 HYDROcod/ACETAM 5/325 [[place] 5/325] 1 tab PO BID PRN 03/05/18 Pramipexole Di-HCl [Mirapex ER] 0.75 mg PO QPM PRN 03/05/18 Objective - Vital Signs/Intake & Output Reviewed Vital Signs: Yes Vital Signs: Vital Signs x48h Temp Pulse Resp BP Pulse Ox 03/06/18 08:35 37.5 C 03/06/18 08:00 37.4 C 83 16 154/82 H 94 03/06/18 04:00 37.2 C Intake & Output: Intake & Output 03/03/18 03/04/18 03/05/18 03/06/18 23:59 23:59 23:59 23:59 Intake Total 2030.0 1247.5 Output Total 875 Balance 1155.0 1247.5 - Objective General Appearance: positive: No acute distress, Alert. negative: Lethargic Eyes Bilateral: positive: Normal inspection, PERRL, No lid inflammation, Conjunctivae nml ENT: positive: ENT inspection nml, Pharynx nml, No signs of dehydration. negative: Purulent nasal drainage, Pharyngeal erythema, Oral lesions Neck: positive: Nml inspection, Thyroid nml, No JVD, Trachea midline. negative : Thyromegaly, Lymphadenopathy (R), Lymphadenopathy (L), Stiff neck, Carotid bruit, Swelling/bruising, Tracheal deviation Respiratory: positive: Chest non-tender, No respiratory distress, Breath sounds nml. negative: Wheezes, Rales, Rhonchi Cardiovascular: positive: Regular rate & rhythm, No murmur, No gallop. negative : Irregularly irregular, Extrasystoles, Tachycardia, Bradycardia, JVD present, Systolic murmur, Diastolic murmur Peripheral Pulses: 2+ Radial (R), 2+ Radial (L), 2+ Dorsalis pedis (R), 2+ Dorsalis pedis (L) Abdomen: positive: Non-tender, No organomegaly, Nml bowel sounds, No distention. negative: Tenderness, Guarding, Rebound Back: positive: Nml inspection. negative: CVA tenderness (R), CVA tenderness (L ) Skin: positive: Color nml, No rash, Warm, Dry. negative: Cyanosis, Diaphoresis , Pallor Extremities: positive: Non-tender, Full ROM, Nml appearance. negative: Calf tenderness, Joint swelling, Doni's sign/cords Neurologic/Psychiatric: positive: Oriented x3, Sensation nml, Mood/affect nml. negative: Weakness, Sensory loss, Facial droop, Slurred/abnml speech, Depressed mood/affect - Lab Results Fish Bones: 03/06/18 05:25 03/06/18 05:25 Other Labs: Lab Results x24hrs 03/06/18 03/06/18 03/06/18 Range/Units 05:25 05:25 05:25 WBC 6.7 (4.8-10.8) x10^3/uL RBC 4.21 (4.20-5.40) 10^6/uL Hgb 13.7 (12.0-16.0) g/dL Hct 41.3 (37.0-47.0) % MCV 98.0 (81.0-99.0) fL MCH 32.6 H (27.0-31.0) pg MCHC 33.3 (32.0-36.0) g/dL RDW 14.1 (12.0-15.0) % Plt Count 206 (130-450) 10^3/uL MPV 8.2 (7.9-10.8) fL Neut # (Auto) 4.0 (1.5-6.6) 10^3/uL Lymph # (Auto) 1.9 (1.5-3.5) 10^3/uL [place] # (Auto) 0.4 (0.0-1.0) 10^3/uL Eos # (Auto) 0.3 (0.0-0.7) 10^3/uL Baso # (Auto) 0.0 (0.0-0.1) 10^3/uL Absolute Nucleated RBC 0.01 x10^3/uL Nucleated RBC % 0.1 /100WBC PT 12.5 (9.9-12.6) secs INR 1.1 (0.8-1.2) Sodium 138 (135-145) mmol/L Potassium 3.9 (3.5-5.0) mmol/L Chloride 105 (101-111) mmol/L Carbon Dioxide 24 (21-32) mmol/L Anion Gap 9.0 (6-13) BUN 12 (6-20) mg/dL Creatinine 0.8 (0.4-1.0) mg/dL Estimated GFR (MDRD) 73 L (>89) Glucose 98 (70-100) mg/dL Calcium 8.7 (8.5-10.3) mg/dL ABX Reporting Has patient been on IV antibiotics over the past 48 hours?: No Assessment/Plan - Problem List (1) Hip fracture, right Impression: Impression: 03/06 pt is planned to have hip repair on tomorrow per orthopedics. NPO after middle night ancef per orth continue pain control fall precaution 03/05 hip repair will be hold today per orthopedics, pt took Xaralto on yesterday , will follow up orthopedics. refer from update" Rivaroxaban can be discontinued approximately two to three days before a procedure" "Rivaroxaban can be resumed postoperatively when hemostasis has been achieved, at the same dose the patient was receiving preoperatively." continue pain control resume home norco regimen Pelvic x-ray shows a supcapital R hip fracture without dislocation. We will admit to evaluate her for surgery and consult the orthopedic surgery team. * Orthopedic surgery consultation * NPO now for possible surgery * IV hydration with normal saline while NPO * Hold clopidogrel and rivaroxaban pending surgery * PRN IV dilaudid for pain * Bedrest (2) Preop cardiovascular exam Conclusion/Plan: Ms. Patel has a PMH of atrial fibrillation on rivaroxaban, diltiazem, and amiodarone, as well as CAD s/p recent coronary stent placement (pt unclear of exactly when this took place, said within the past couple of months) said to have been in response to an abnormal stress test she had during her afib work up after her CVA last year. She most recently (approx. 1 month ago) had what sounds like a Reveal Linq (pt was unsure of actual device name) placed for unclear reasons, but I suspect that it was for work up of a syncopal episode she experienced in October. We have attempted to contact her PCP for more information. * Revised Cardiac Risk Assessment: * 2 points (hx of ischemic cardiac disease and hx of cerebrovascular disease), Class III risk, indicating a 6.6% risk of major cardiac event (3) Atrial fibrillation Conclusion/Plan: 03/06 continue hold Xaretlo. pt will have hip repair tomorrow. continue tele, vital monitor History of atrial fibrillation, diagnosed in 2017 after CVA, on rivaroxaban, diltiazem, and amiodarone. CHADS-VASC score 4, indicating moderate/high stroke risk. Admission EKG shows NSR in 70s. Will attempt to find outside records with further information. * Continue home diltiazem and amiodarone * Hold rivaroxaban for surgery, restart anticoagulation immediately following surgery given moderate/high stroke risk (4) Presence of stent in coronary artery in patient with coronary artery disease Conclusion/Plan: continue hold Plavix for surgery Patient reports recent coronary stent placement (unclear of date and details, approximated 2 months ago) in response to an abnormal stress test and was then subsequently started on clopidogrel. * Continue home beta dolly (nebivolol) * Hold clopidogrel, restart after surgery given presumed BENJAMÍN * Follow up on outside records * Check post op troponins. (5) History of stroke with residual deficit Conclusion/Plan: Previous residual deficits of L sided weakness, gait instability, and bowel/ bladder incontinence may complicate postoperative rehabilitation process. Patient was ambulating with walker prior to injury and gait instability appears to have led to fall. * consult PT/OT after surgery (6) Diabetes type 2, controlled Conclusion/Plan: 03/05, start insulin slide scale on eating status, ACHS, hypoglycemia Reportedly well controlled on oral antiglycemics and without complications for past 6 years. * Hold home empagliflozin and glimepiride * Start medium dose SSI with q6h POC blood glucose testing while NPO * HgbA1C with am labs (7) Hyperlipidemia Conclusion/Plan: Unclear history of hyperlipidemia. Ms. Patel was recently started on evolocumab, she believes after her coronary stent placement, presumably for hyperlipidemia and/or secondary prevention of ASCVD. * Continue home evolocumab * Will consider cholesterol levels if unable to find outside records especially since evolocumab is for secondary treatment of familial hyperlipidemia or primary treatment for hyperlipidemia with a statin. (8) Incontinence associated dermatitis Conclusion/Plan: Hx of incontinence of urine and stool since prior stroke with utilization of adult diapers. Pt reports a rash to epifanio area for past month, seen by [facility] prior to coming to [place] and has been treating with an unknown prescription ointment with improvement of symptoms. States it is much improved since initial diagnosis. Redness and irritation noted to labia. Endorses some pruitis (improved since diagnosis) but denies pain, discharge, or lesions. Sister encouraged to bring name of ointment when she is able to retrieve it from home, in the mean time, barrier cream applied by nursing staff. (9) Depression Conclusion/Plan: Continue home escitalopram (10) Osteoarthritis Conclusion/Plan: 03/05 continue pain control resume home [place] regimen PRN IV dilaudid Add diazepam PRN Osteoarthritis of "low back" with chronic low back pain treated with steroid injections every 3 months and PRN vicodin for past 2 years. Reports taking approx 2 vicodins per day. * Monitor for adequate pain control * PRN IV dilaudid Qualifiers: Encounter type: initial encounter Fracture type: closed Qualified Code(s) : S72.001A - Fracture of unspecified part of neck of right femur, initial encounter for closed fracture
--- NOTE | 2018-03-06 10:38 | PROVIDER PROGRESS NOTE ---
Subjective - General Admit Date: 03/04/18 - Review of Systems General: positive: No symptoms HEENT: positive: No symptoms Pulmonary: positive: No symptoms Cardiovascular: positive: No symptoms Gastrointestinal: positive: No symptoms Genitourinary: positive: Incontinence Musculoskeletal: positive: Back pain, Other (right hip/groin pain) Skin: positive: Rash (adult diaper rash) Psychiatric: positive: No symptoms, Other (reports was hallucinating/ sleepwalking at the time of her fall on Sat night. Has had this with Ambien.) All Other Systems: positive: Reviewed and negative - Other Other Information/Narrative: Patient is A+Ox3, here with sister. Note pain with movement of right hip, otherwise pretty comfortable. Objective - Patient Data Reviewed Vital Signs: Yes Vital Signs: Vital Signs x48h Temp Pulse Resp BP Pulse Ox 03/06/18 08:35 37.5 C 03/06/18 08:00 37.4 C 83 16 154/82 H 94 03/06/18 04:00 37.2 C Weight: Weight 03/04/18 03/05/18 03/06/18 23:59 23:59 23:59 Weight (kg) 74.5 kg Intake & Output: Intake and Output Totals x24h 03/04/18 03/05/18 03/06/18 23:59 23:59 23:59 Intake Total 2030.0 1247.5 Output Total 875 Balance 1155.0 1247.5 - Lab Results Lab Results: 03/06/18 05:25 03/06/18 05:25 Other Lab Results: Lab Results x24hrs 03/06/18 03/06/18 03/06/18 Range/Units 05:25 05:25 05:25 WBC 6.7 (4.8-10.8) x10^3/uL RBC 4.21 (4.20-5.40) 10^6/uL Hgb 13.7 (12.0-16.0) g/dL Hct 41.3 (37.0-47.0) % MCV 98.0 (81.0-99.0) fL MCH 32.6 H (27.0-31.0) pg MCHC 33.3 (32.0-36.0) g/dL RDW 14.1 (12.0-15.0) % Plt Count 206 (130-450) 10^3/uL MPV 8.2 (7.9-10.8) fL Neut # (Auto) 4.0 (1.5-6.6) 10^3/uL Lymph # (Auto) 1.9 (1.5-3.5) 10^3/uL [place] # (Auto) 0.4 (0.0-1.0) 10^3/uL Eos # (Auto) 0.3 (0.0-0.7) 10^3/uL Baso # (Auto) 0.0 (0.0-0.1) 10^3/uL Absolute Nucleated RBC 0.01 x10^3/uL Nucleated RBC % 0.1 /100WBC PT 12.5 (9.9-12.6) secs INR 1.1 (0.8-1.2) Sodium 138 (135-145) mmol/L Potassium 3.9 (3.5-5.0) mmol/L Chloride 105 (101-111) mmol/L Carbon Dioxide 24 (21-32) mmol/L Anion Gap 9.0 (6-13) BUN 12 (6-20) mg/dL Creatinine 0.8 (0.4-1.0) mg/dL Estimated GFR (MDRD) 73 L (>89) Glucose 98 (70-100) mg/dL Calcium 8.7 (8.5-10.3) mg/dL - Imaging Results Radiology Imaging: positive: Final report received, EMP read indepedently Imaging Results Comments: to my reading she has a right displaced femoral neck fracture. - Current Medications Current Medications: Current Medications Generic Name Dose Route Start Last Admin Trade Name Freq PRN Reason Stop Dose Admin Acetaminophen 650 mg 03/06/18 01:40 03/06/18 07:32 Tylenol PO 650 mg Q4HR PRN Administration Pain or Fever > 38C (100.4F) Hydrocodone Bitart/Acetaminophen 1 tab 03/05/18 12:17 03/06/18 09:03 [place] 5/325 PO 1 tab BID PRN Administration PAIN Amiodarone HCl 200 mg 03/05/18 11:00 03/06/18 09:03 Pacerone PO 200 mg DAILY ACE Administration Diazepam 5 mg 03/05/18 07:50 03/05/18 20:32 Valium PO 5 mg TID PRN Administration Anxiety Diltiazem HCl 120 mg 03/05/18 10:15 03/06/18 09:06 Cardizem Cd PO 120 mg DAILY ACE Administration Hydromorphone HCl 0.5 mg 03/04/18 23:59 03/06/18 08:03 Dilaudid Inj Syringe IVP 0.5 mg Q2H PRN Administration Pain 8 to 10 Sodium Chloride 1,000 mls @ 75 mls/hr 03/05/18 10:12 03/06/18 02:15 Normal Saline 0.9% IV 75 mls/hr .[id number] ACE Administration Insulin Aspart 1 - 9 unit 03/05/18 12:00 03/06/18 09:08 Novolog SUBQ Not Given 0800,1200,1700,2100 [facility] Protocol Mineral Oil 1 applic 03/05/18 01:09 03/05/18 01:34 Cavilon TOP 1 applic PRN PRN Administration Skin Care (Nebivolol Hcl [ 1 each 03/05/18 11:00 03/06/18 09:04 Bystolic] 10 Mg) Tab PO 1 each BID ACE Administration Polyethylene Glycol 17 gm 03/05/18 09:00 03/06/18 09:03 Miralax PO 17 gm DAILY ACE Administration Sodium Chloride 10 ml 03/04/18 23:59 03/06/18 05:02 Normal Saline Flush 0.9% IVP 20 ml PRN PRN Administration NEEDED PER PROVIDER ORDERS Sodium Chloride 10 ml 03/05/18 01:00 03/06/18 00:56 Normal Saline Flush 0.9% IVP 10 ml 0100,0900,1700 ACE Administration ABX Reporting Has patient been on IV antibiotics over the past 48 hours?: No Impression/Plan - Problem List Problem List: Dx: right hip displaced femoral neck fracture. Co-morbidities include chronic pain taking hydrocodone at baseline, chronic left hemiparesis depending on walker and incontinent at baseline, requirement of chronic anticoagulation from atrial fibrillation. Infection risk is increased by Type 2 DM, risk of incontinence soiling her wound, and risk of persistent wound drainage caused by anticoagulation. I discussed findings and treatment options with patient and her sister. After detailed discussion of full risks and benefits, they wish to proceed with right hip hemiarthroplasty. Consent signed and witnessed by RN. NPO p MN, Ancef OCTOR Post op: PT, anticoagulation with lovenox 40 qd until wound fully healed then switch back to Xarelto, okay to re-start Plavix per routine. per PT and medical condition, patient would like to go home with [facility] NURSING PROFESSIONAL/HHPT Hallucinations on Ambien/Chronic opiod dependence: may have contributed to her fall. The patient has not used Ambien since admission and we will keep this off. We will also try to wean her off narcotics completely in the post-op period. All of the above discussed with Dr. García who agrees.
[2018-03-06 11:42] LABS: BILIRUBIN,URINE NEGATIVE (NEGATIVE); GLUCOSE, URINE (UA) >=1000 mg/dL (NEGATIVE); KETONES,URINE (UA) 40 mg/dL (NEGATIVE); LEUKOCYTE ESTERASE, URINE SMALL (NEGATIVE); NITRITE,URINE NEGATIVE (NEGATIVE); OCCULT BLOOD,URINE MODERATE (NEGATIVE); PH,URINE 5.5 PH (5.0-7.5); PROTEIN,URINE TRACE mg/dL (NEGATIVE); UROBILINOGEN,URINE 0.2 (NORMAL) E.U./dL (NORMAL)
[2018-03-06 11:43] LABS: CLARITY,URINE CLOUDY (CLEAR)
[2018-03-06 11:57] LABS: BACTERIA,URINE Many /HPF (None Seen); SQUAMOUS EPITHELIAL CELL,UR NONE SEEN (<= Few); YEAST,URINE PRESENT
--- NOTE | 2018-03-06 15:07 | XRAY Report ---
Procedure Date: 03/06/2018 Accession Number: [id number] / [id number] Procedure: XR - Chest 1 View X-Ray CPT Code: 07651 FULL RESULT: EXAM: Chest 1 View X-Ray DATE: 03/06/2018 11:15 AM CLINICAL HISTORY: SOB COMPARISON: None. TECHNIQUE: Single view of the chest. FINDINGS: Lungs/Pleura: No focal opacities evident. No pneumothorax or pleural effusion. Mediastinum: Within exam limitations, cardiomediastinal contour is normal. Circumscribed radiodensity overlying the left humeral head neck juncture likely represents an overlying foreign object. Other: Cardiac loop recorder. IMPRESSION: No acute cardiopulmonary abnormality. RADIA
[2018-03-06] MEDS ORDERED: cefTRIAXone 1 GM VIAL IVP SCH (16:02)
[2018-03-06] MEDS ORDERED: cefTRIAXone 1 GM in SODIUM CHLORIDE 0.9% MINIBAG 100 ML IV ONE (17:00)
[2018-03-06] MEDS: ZINC OXIDE 20% OINT 28.35 GM TUBE TOP SCH (22:34)
[2018-03-06] MEDS: NYSTATIN CREAM 15 GM TUBE TOP SCH (22:34)
[2018-03-07] MEDS: INSULIN ASPART 300 UNIT/3 ML PEN SUBQ SCH ×4 (01:51→20:29)
[2018-03-07] MEDS: HYDROmorphone 0.5 MG/0.5 ML SYRINGE IVP PRN ×4 (04:04→23:18)
[2018-03-07] MEDS: SODIUM CHLORIDE 0.9% 1,000 ML IV SCH ×2 (04:08→15:05)
[2018-03-07] MEDS: SODIUM CHLORIDE FLUSH 0.9% 10 ML SYRINGE IVP SCH ×3 (04:52→16:00)
[2018-03-07 05:43] LABS: BASOPHILS % (AUTO) 0.3 %; EOSINOPHILS # (AUTO) 0.3 10^3/uL (0.0-0.7); EOSINOPHILS % (AUTO) 3.4 %; HGB - HEMOGLOBIN 13.3 g/dL (12.0-16.0); LYMPHOCYTES # (AUTO) 1.3 10^3/uL (1.5-3.5); LYMPHOCYTES % (AUTO) 16.1 %; MEAN CORPUSCULAR HEMOGLOBIN 32.4 pg (27.0-31.0); MEAN CORPUSCULAR HGB CONC 33.3 g/dL (32.0-36.0); MEAN CORPUSCULAR VOLUME 97.2 fL (81.0-99.0); MEAN PLATELET VOLUME 8.3 fL (7.9-10.8); MONOCYTES # (AUTO) 0.5 10^3/uL (0.0-1.0); MONOCYTES % (AUTO) 6.5 %; NEUTROPHILS # (AUTO) 5.8 10^3/uL (1.5-6.6); NEUTROPHILS % (AUTO) 73.7 %; PLT - PLATELET COUNT 187 10^3/uL (130-450); RED CELL DISTRIBUTION WIDTH 13.4 % (12.0-15.0); WHITE BLOOD COUNT 7.9 x10^3/uL (4.8-10.8)
[2018-03-07 05:45] LABS: INR 1.1 (0.8-1.2); PT - PROTHROMBIN TIME 12.9 secs (9.9-12.6)
[2018-03-07 05:50] LABS: CALCIUM 8.5 mg/dL (8.5-10.3); CREATININE 0.7 mg/dL (0.4-1.0)
[2018-03-07] MEDS ORDERED: INSULIN REGULAR HUMAN 100 UNIT/1 ML 10 ML MDV SUBQ SCH (06:00)
[2018-03-07] MEDS: POLYETHYLENE GLYCOL 3350 17 GM PACKET PO SCH (07:42)
[2018-03-07] MEDS: diltiaZEM CD 120 MG CAPSULE PO SCH (08:29)
[2018-03-07] MEDS: ESCITALOPRAM 10 MG TABLET PO SCH (08:29)
[2018-03-07] MEDS: AMIODARONE 200 MG TABLET PO SCH (08:29)
[2018-03-07] MEDS: NYSTATIN CREAM 15 GM TUBE TOP SCH ×2 (08:31→20:07)
[2018-03-07] MEDS: ZINC OXIDE 20% OINT 28.35 GM TUBE TOP SCH ×2 (08:31→20:07)
[2018-03-07] MEDS: cefTRIAXone 1 GM in SODIUM CHLORIDE 0.9% MINIBAG 100 ML IV SCH (08:33)
[2018-03-07] MEDS ORDERED: ONDANSETRON 4 MG/2 ML VIAL IVP ONE (09:30)
[2018-03-07] MEDS ORDERED: fentaNYL 100 MCG/2 ML VIAL IVP ONE (09:30)
[2018-03-07] MEDS ORDERED: NEOSTIGMINE 1 MG/1 ML 10 ML MDV IVP ONE (09:30)
[2018-03-07] MEDS ORDERED: PROPOFOL 200 MG/20 ML VIAL IVP ONE (09:30)
[2018-03-07] MEDS ORDERED: ROCURONIUM 50 MG/5 ML VIAL IVP ONE (09:30)
[2018-03-07] MEDS ORDERED: MIDAZOLAM 2 MG/2 ML VIAL IVP ONE (09:30)
[2018-03-07] MEDS ORDERED: PHENYLEPHRINE 50 MG/5 ML VIAL IV ONE (09:30)
[2018-03-07] MEDS ORDERED: TRANEXAMIC ACID 1,000 MG/10 ML VIAL IV ONE (09:30)
[2018-03-07] MEDS ORDERED: DEXAMETHASONE 4 MG/ML VIAL IVP ONE (09:30)
[2018-03-07] MEDS ORDERED: GLYCOPYRROLATE 1 MG/5 ML VIAL IVP ONE (09:30)
[2018-03-07] MEDS ORDERED: LIDOCAINE-MPF 2% 5 ML VIAL IM ONE (09:30)
[2018-03-07] MEDS ORDERED: ePHEDrine 50 MG/ML VIAL IVP ONE (09:30)
[2018-03-07] MEDS ORDERED: BUPIVACAINE 0.5%-EPI 1:200000 PF 30 ML VIAL ONE (09:32)
[2018-03-07] MEDS ORDERED: LACTATED RINGERS 1,000 ML IV ONE ×3 (09:52→12:15)
[2018-03-07] MEDS ORDERED: cefTRIAXone 2 GM VIAL ONE (10:14)
[2018-03-07] MEDS ORDERED: BUPIVACAINE 0.5%-EPI 1:200000 PF 30 ML VIAL SUBQ ONE (10:43)
--- NOTE | 2018-03-07 12:13 | PROVIDER PROGRESS NOTE ---
Subjective - Prog Note Date Prog Note Date: 03/07/18 Prog Note Time: 12:11 - Subjective Pt reports feeling: No change Subjective: Gato has no complaints and is happy with her post-op course. She states that she is in no pain. She denies shortness of breath, chest pain, nausea, vomiting , or a new cough. Her [id number] was present for her exam. Current Medications - Current Medications Current Medications: Active Medications Acetaminophen (Tylenol) 650 mg PO Q4HR PRN PRN Reason: Pain or Fever > 38C (100.4F) Last Admin: 03/06/18 20:46 Dose: 650 mg Hydrocodone Bitart/Acetaminophen (Thatcher 5/325) 1 tab PO BID PRN PRN Reason: PAIN Last Admin: 03/06/18 20:46 Dose: 1 tab Amiodarone HCl (Pacerone) 200 mg PO DAILY [facility] Last Admin: 03/07/18 08:29 Dose: 200 mg Diazepam (Valium) 5 mg PO TID PRN PRN Reason: Anxiety Last Admin: 03/05/18 20:32 Dose: 5 mg Diltiazem HCl (Cardizem Cd) 120 mg PO DAILY [facility] Last Admin: 03/07/18 08:29 Dose: 120 mg Escitalopram Oxalate (Lexapro) 10 mg PO DAILY [facility] Last Admin: 03/07/18 08:29 Dose: 10 mg Hydromorphone HCl (Dilaudid Inj Syringe) 0.5 mg IVP Q2H PRN PRN Reason: Pain 8 to 10 Last Admin: 03/07/18 08:26 Dose: 0.5 mg Sodium Chloride (Normal Saline 0.9%) 1,000 mls @ 75 mls/hr IV .[id number] [facility] Last Infusion: 03/07/18 10:05 Dose: 0 mls/hr Ceftriaxone Sodium 1 gm/ (Sodium Chloride) 100 mls @ 200 mls/hr IV DAILY [facility] Last Infusion: 03/07/18 10:04 Dose: Infused Insulin Aspart (Novolog) 1 - 9 unit SUBQ 0800,1200,1700,2100 [facility] PRN Reason: Protocol Last Admin: 03/07/18 01:51 Dose: Not Given Mineral Oil (Cavilon) 1 applic TOP PRN PRN PRN Reason: Skin Care Last Admin: 07/15/18 01:34 Dose: 1 applic Multi-Ingredient Ointment (Zinc Oxide) 1 applic TOP BID [facility] Last Admin: 03/07/18 08:31 Dose: 1 applic Nystatin (Mycostatin Cream) 1 applic TOP BID [facility] Last Admin: 03/07/18 08:31 Dose: 1 applic Ondansetron HCl (Zofran Inj) 4 mg IVP Q6HR PRN PRN Reason: Nausea / Vomiting (Nebivolol Hcl [ (Bystolic] 10 Mg) Tab) 1 each PO BID [facility] Last Admin: 03/07/18 08:30 Dose: 1 each Polyethylene Glycol (Miralax) 17 gm PO DAILY [facility] Last Admin: 03/07/18 07:42 Dose: Not Given Sodium Chloride (Normal Saline Flush 0.9%) 10 ml IVP PRN PRN PRN Reason: NEEDED PER PROVIDER ORDERS Last Admin: 03/06/18 19:50 Dose: 10 ml Sodium Chloride (Normal Saline Flush 0.9%) 10 ml IVP 0100,0900,1700 [facility] Last Admin: 03/07/18 07:43 Dose: Not Given Zolpidem Tartrate (Ambien) 10 mg PO QPM [facility] Zolpidem [Ambien] 10 mg PO QPM 03/10/15 Amiodarone [Pacerone] 200 mg PO DAILY 03/04/18 Clopidogrel Bisulfate [Clopidogrel] 75 mg PO DAILY 03/04/18 Diltiazem HCl [Diltiazem 24Hr ER] 120 mg PO DAILY 03/04/18 Escitalopram [Lexapro] 10 mg PO DAILY 03/04/18 Nebivolol HCl [Bystolic] 10 mg PO BID 03/04/18 Rivaroxaban [Xarelto] 20 mg PO DAILY 03/04/18 Empagliflozin [Jardiance] 25 mg PO DAILY 03/05/18 Evolocumab [Repatha Sureclick] 140 mg SUBQ Q14D 03/05/18 HYDROcod/ACETAM 5/325 [Thatcher 5/325] 1 tab PO BID PRN 03/05/18 Pramipexole Di-HCl [Mirapex ER] 0.75 mg PO QPM PRN 03/05/18 Objective - Vital Signs/Intake & Output Reviewed Vital Signs: Yes Vital Signs: Vital Signs x48h Pulse Resp BP Pulse Ox 07/17/18 07:58 84 18 139/70 H 94 Intake & Output: Intake & Output 03/04/18 03/05/18 03/06/18 03/07/18 23:59 23:59 23:59 23:59 Intake Total 2030.0 3792.5 1532.50 Output Total 875 1100 1000 Balance 1155.0 2692.5 532.50 - Objective General Appearance: positive: Moderate distress, Lethargic Eyes Bilateral: positive: Normal inspection Eyes: OU Conjunctivae pale ENT: positive: ENT inspection nml, Pharynx nml, Dry mucous membranes Neck: positive: Nml inspection, No JVD, Stiff neck Respiratory: positive: Chest non-tender, No respiratory distress, Other ( diminished.) Cardiovascular: positive: No gallop, Irregularly irregular, Systolic murmur, Decreased pulse(s) Peripheral Pulses: 1+ Radial (R), 1+ Radial (L), 1+ Dorsalis pedis (R), 1+ Dorsalis pedis (L) Abdomen: positive: Non-tender, Nml bowel sounds Back: positive: Nml inspection Skin: positive: No rash, Warm, Dry, Other (right hip post op dressing-CDI) Extremities: positive: Pedal edema, Joint swelling, Other (post surgical wound) Neurologic/Psychiatric: positive: Disoriented to time, Weakness, Sensory loss, Depressed mood/affect, Other (baseline delay) - Lab Results Fish Bones: 03/07/18 05:09 03/07/18 05:09 Other Labs: Lab Results x24hrs 03/07/18 03/07/18 03/07/18 Range/Units 05:09 05:09 05:09 WBC 7.9 (4.8-10.8) x10^3/uL RBC 4.10 L (4.20-5.40) 10^6/uL Hgb 13.3 (12.0-16.0) g/dL Hct 39.8 (37.0-47.0) % MCV 97.2 (81.0-99.0) fL MCH 32.4 H (27.0-31.0) pg MCHC 33.3 (32.0-36.0) g/dL RDW 13.4 (12.0-15.0) % Plt Count 187 (130-450) 10^3/uL MPV 8.3 (7.9-10.8) fL Neut # (Auto) 5.8 (1.5-6.6) 10^3/uL Lymph # (Auto) 1.3 L (1.5-3.5) 10^3/uL [place] # (Auto) 0.5 (0.0-1.0) 10^3/uL Eos # (Auto) 0.3 (0.0-0.7) 10^3/uL Baso # (Auto) 0.0 (0.0-0.1) 10^3/uL Absolute Nucleated RBC 0.00 x10^3/uL Nucleated RBC % 0.0 /100WBC PT 12.9 H (9.9-12.6) secs INR 1.1 (0.8-1.2) Sodium 134 L (135-145) mmol/L Potassium 3.8 (3.5-5.0) mmol/L Chloride 103 (101-111) mmol/L Carbon Dioxide 22 (21-32) mmol/L Anion Gap 9.0 (6-13) BUN 13 (6-20) mg/dL Creatinine 0.7 (0.4-1.0) mg/dL Estimated GFR (MDRD) 85 L (>89) Glucose 90 (70-100) mg/dL Calcium 8.5 (8.5-10.3) mg/dL - Diagnostic Imaging Diagnostic Imaging Results: positive: Prelim report reviewed, Final report reviewed ABX Reporting Has patient been on IV antibiotics over the past 48 hours?: Yes Assessment/Plan - Problem List (1) Hip fracture, right Impression: She presented with a subcapital R hip fracture sustained a mechanical ground level fall prior to presentation to the ED. She was ambulating with her walker , tripped, fell backwards onto her R hip, and was unable to return to standing or bear weight on her RLE. She denied any dizziness or syncope leading up to the fall or loss of consciousness. Her [id number], who she has been staying with, assisted her off of the floor and imaging confirmed a right femur fracture. Orthopedic surgery was consulted. Plan: The patient is to undergo a surgical repair for this injury with Dr. Boudreaux. Qualifiers: Encounter type: initial encounter Fracture type: closed Qualified Code(s) : S72.001A - Fracture of unspecified part of neck of right femur, initial encounter for closed fracture (2) UTI (urinary tract infection) Impression: A urine sample was obtained in the ED, which showed a UTI. Since her CVA, she has been incontinent of urine, so this may be the likely culprit. Plan: Give Rocephin IV Q 24 hours, monitor urine out put and await culture results. (3) Atrial fibrillation Impression: The patient has a long history of this and is normally on Xorelto at home, which is now on hold. She will be on Lovenox 40mg SQ daily immediately post-op , then consider re-starting her anticoagulant. Plan: Continue to monitor on telemetry, obtain an echo, and watch for changes in neuro status. Qualifiers: Atrial fibrillation type: unspecified Qualified Code(s): I48.91 - Unspecified atrial fibrillation (4) Presence of stent in coronary artery in patient with coronary artery disease Impression: The patient is prescribed Plavix for some recent coronary stenting, that was on hold prior to surgery, and planning to be re-started on POD #1. Plan: Hold for now, scheduled for the AM. Continue telemetry.
[2018-03-07] MEDS ORDERED: BISACODYL 10 MG SUPP PR PRN (12:43)
[2018-03-07] MEDS ORDERED: BISACODYL 5 MG TABLET PO PRN (12:43)
[2018-03-07] MEDS ORDERED: PROCHLORPERAZINE 10 MG/2 ML VIAL IVP PRN (12:43)
[2018-03-07] MEDS ORDERED: ACETAMINOPHEN 1,000 MG/100 ML 100 ML IV PRN (12:43)
[2018-03-07] MEDS ORDERED: SENNA 8.6 MG TABLET PO PRN (12:43)
[2018-03-07] MEDS ORDERED: DOCUSATE SODIUM 100 MG CAPSULE PO PRN (12:43)
[2018-03-07] MEDS ORDERED: ceFAZolin 2 GM/50 ML 50 ML IV SCH (12:45)
--- NOTE | 2018-03-07 13:14 | OPERATIVE REPORT ---
Operative Report - General Admit Date: 03/04/18 Procedure Date: 03/07/18 Planned Procedure: right hip hemiarthroplasty Pre-Op Diagnosis: right hip displaced femoral neck fracture Procedure Performed: OPERATIVE REPORT PREOPERATIVE DIAGNOSIS: Closed, displaced RIGHT hip femoral neck fracture, pathologic secondary to osteoporosis. POSTOPERATIVE DIAGNOSIS: Same. PROCEDURE: Right hip hemiarthroplasty (Moisés/Biomet Taperloc size 14, standard-offset, proximally porous, tapered femoral component, 28/46 mm. diameter CoCr bipolar femoral head with +0mm 12/14 taper sleeve). POSTOPERATIVE PLAN: WEIGHTBEARING: WBAT POSTERIOR HIP DISLOCATION PRECAUTIONS DVT PROPHYLAXIS: Lovenox 40mg sc daily x 14days, followed by resume her usual Xarelto po daily. The patient should go back to the normal pre-operative dose of Plavix starting POD1. SURGEON: Juan J Boudreaux M.D. ASSISTANTS: none ANESTHESIA: General ESTIMATED BLOOD LOSS: 100mL. COMPLICATIONS: none. INDICATIONS: The patient presented with the above diagnosis. The alternatives, indications, benefits and possible risks of hip hemiarthroplasty, as previously detailed, were explained to the patient and family at length who indicated understanding of all of the above and wished to proceed. All questions were answered and no guarantees with respect to final outcome were made. FINDINGS: 100% displaced femoral neck fracture, intact acetabulum. Decreased bone quality was noted intraoperatively. A moderately increased amount of bleeding was noted intraoperatively, controlled with careful cautery and tranexamic acid. PROCEDURE: The patient was brought to the Operating Room and Surgical Briefing was carried out in accordance with hospital policy, in which all members of the team, chart , and patient were found in agreement as to the surgical site and plan. Prophylactic antibiotic was given, and the patient was placed on the operating table. After anesthesia was satisfactorily achieved, the patient was rolled up to the lateral decubitus position, the trunk and pelvis were stabilized on the peg board device, and all bony prominences were well padded. The lower extremity and hip girdle areas were prepped and draped in the usual sterile fashion. The operative site was meticulously isolated from the groin area. An abbreviated posterolateral [place] approach to the hip joint was then performed, sharply down to and through the fascia and between the fibers of gluteus cely with care taken to avoid extension into the fascia angelique. The short external rotators and posterior hip capsule were taken sharply off their femoral attachment, distally from the lesser trochanter and proximally to and posteromedially through the interval between piriformis and gluteus minimus to the edge of the acetabulum. This flap was retracted posteriorly keeping the sciatic nerve out of harm's way. The fracture site was then identified and the findings above were noted. A completion femoral neck osteotomy was performed approximately 10mm proximal to the lesser trochanter. Attention was directed to the acetabulum where the remaining femoral head and small bony fragments were excised. The femoral head was measured. The final prosthetic head size was determined after trial heads were used to assess optimal acetabular fossa fit and suction effect. Attention was then directed to the proximal femur where lateralized access to the femoral canal was obtained using a box osteotome. The canal was sequentially taper-reamed until good engagement with the diaphysis was felt, and then sequentially broached to the same size, achieving excellent proximal fill as well as axial and rotational stability. Remaining osteophytes were excised. Trial components were then placed and the hip joint reduced. Various configurations were trialled with the goals of optimizing the overall limb length, as well as stability in full extension and external rotation, and abduction. With the hip in 90 degrees of flexion, 10 degrees of adduction, 90 degrees of internal rotation could be obtained prior to dislocation. We were also able to flex her to past 120 degrees, and in position of sleep, internal rotation of 90 degrees could be obtained prior to dislocation. All trial components were then removed and the real femoral component was impacted into the femoral canal. Upon complete seating, rotational and axial stability of the stem was noted. No cracks were noted during insertion. The real femoral head was then impacted onto a meticulously cleaned and dried Issa taper. The hip joint was then atraumatically reduced. Final evaluation demonstrated good stability with reproduction of the previously trialled parameters. The wound was irrigated with copious amounts of saline and all small debris removed. The patient received a second gram of intravenous cefazolin. The combination of posterior capsule and short external rotators were repaired anatomically through 2 drill holes in the greater trochanter using two #2 Fiberwire sutures. The deep fascia was closed in a water-tight fashion with # 1 Vicryl suture. Subcutaneous tissues were closed in layers with 0 and 2-0 Vicryl and skin was coapted with arturo. A sterile non-adhesive bulky compressive dressing was then applied, and bilateral lower extremities were secured around an abduction pillow. At the termination of the procedure, the patient's toes were noted to be pink with brisk capillary refill. Final sponge and needle counts as provided by the nursing staff were even. Anesthesia was then reversed, and the patient was transferred to the recovery room awake, stable, following commands, in no apparent distress. Juan J Boudreaux M.D. - Procedure Note Primary Surgeon: Dr. Boudreaux Anesthesia Technique: General ET tube
[2018-03-07] MEDS ORDERED: ENOXAPARIN 40 MG/0.4 ML SYRINGE SUBQ SCH (14:00)
--- NOTE | 2018-03-07 15:06 | XRAY Report ---
Procedure Date: 03/07/2018 Accession Number: [id number] / [id number] Procedure: XR - Pelvis 1 View CPT Code: FULL RESULT: EXAM: Pelvis 1 View DATE: 03/07/2018 2:55 PM CLINICAL HISTORY: post-op THR, include the upper half of the femur COMPARISON: Hip radiograph 03/04/2017. TECHNIQUE: 1 view. FINDINGS: Interval right total hip replacement, appropriately positioned with no evidence of hardware failure. Soft tissue swelling and overlying skin arturo are expected findings. There is no other fracture. Visualized bowel gas pattern is unremarkable. IMPRESSION: Status post right total hip arthroplasty, no hardware failure. RADIA
[2018-03-07] MEDS: HYDROcod/ACETAM 5/325 MG TABLET PO PRN (20:30)
[2018-03-07] MEDS ORDERED: ZOLPIDEM 5 MG TABLET PO SCH (21:00)
[2018-03-07] MEDS: diazePAM 5 MG TABLET PO PRN (22:33)
[2018-03-08] MEDS: SODIUM CHLORIDE FLUSH 0.9% 10 ML SYRINGE IVP SCH ×5 (03:15→23:43)
[2018-03-08] MEDS: ACETAMINOPHEN 325 MG TABLET PO PRN (04:12)
[2018-03-08] MEDS: SODIUM CHLORIDE 0.9% 1,000 ML IV SCH (04:27)
[2018-03-08 05:42] LABS: INR 1.1 (0.8-1.2); PT - PROTHROMBIN TIME 12.5 secs (9.9-12.6)
[2018-03-08] MEDS: HYDROmorphone 0.5 MG/0.5 ML SYRINGE IVP PRN ×3 (06:07→21:05)
[2018-03-08] MEDS: SODIUM CHLORIDE FLUSH 0.9% 10 ML SYRINGE IVP PRN (06:11)
[2018-03-08] MEDS: INSULIN ASPART 300 UNIT/3 ML PEN SUBQ SCH ×4 (08:09→21:06)
--- NOTE | 2018-03-08 08:45 | PROVIDER PROGRESS NOTE ---
Subjective - Prog Note Date Prog Note Date: 03/08/18 Prog Note Time: 08:45 - Subjective Pt reports feeling: Improved Subjective: Gato has no complaints. She denies shortness of breath, nausea, vomiting, chest pain or a new cough. Objective - Vital Signs/Intake & Output Reviewed Vital Signs: Yes Vital Signs: Vital Signs x48h Temp Pulse Resp BP BP Pulse Ox 03/08/18 07:40 36.9 C 75 20 119/54 L 94 03/08/18 04:56 36.7 C 80 18 136/59 H 95 Intake & Output: Intake & Output 03/05/18 03/06/18 03/07/18 03/08/18 23:59 23:59 23:59 23:59 Intake Total 2030.0 3792.5 2222.50 1160 Output Total 875 1100 2550 1050 Balance 1155.0 2692.5 -327.50 110 - Objective General Appearance: positive: No acute distress, Alert Eyes Bilateral: positive: Normal inspection, PERRL Eyes: OU Conjunctivae pale ENT: positive: ENT inspection nml, Pharynx nml, Pharyngeal erythema, Dry mucous membranes Neck: positive: Nml inspection, Thyroid nml, No JVD Respiratory: positive: Chest non-tender, No respiratory distress Cardiovascular: positive: No gallop, Irregularly irregular, Systolic murmur Peripheral Pulses: 1+ Radial (R), 1+ Radial (L) Abdomen: positive: Non-tender, Nml bowel sounds Back: positive: Nml inspection Skin: positive: No rash, Warm, Dry Extremities: positive: Non-tender, Pedal edema Neurologic/Psychiatric: positive: Oriented x3, CN's nml (2-12), Motor nml, Sensation nml, Weakness Reflexes: Bicep (R): 3+, Bicep (L): 2+ - Lab Results Fish Bones: 03/09/18 12:14 03/09/18 12:14 Other Labs: Lab Results x24hrs 03/08/18 Range/Units 04:45 PT 12.5 (9.9-12.6) secs INR 1.1 (0.8-1.2) ABX Reporting Has patient been on IV antibiotics over the past 48 hours?: No Assessment/Plan - Problem List (1) Post-operative state Impression: Gato has had an uneventful post operative course, but still has not moved her bowels. Her neville catheter will be removed today and she can use the Pure Wick in its place. Plan: Continue to monitor and ongoing PT/OT to prepare for SNF placement. (2) Hip fracture, right Impression: She presented with a subcapital R hip fracture sustained a mechanical ground level fall prior to presentation to the ED. She was ambulating with her walker , tripped, fell backwards onto her R hip, and was unable to return to standing or bear weight on her RLE. She denied any dizziness or syncope leading up to the fall or loss of consciousness. Her [id number], who she has been staying with, assisted her off of the floor and imaging confirmed a right femur fracture. Orthopedic surgery was consulted. Plan: The patient is to undergo a surgical repair for this injury with Dr. Boudreaux. Qualifiers: Encounter type: subsequent encounter Fracture type: closed Fracture healing: with routine healing Qualified Code(s): S72.001D - Fracture of unspecified part of neck of right femur, subsequent encounter for closed fracture with routine healing (3) UTI (urinary tract infection) Impression: A urine sample was obtained in the ED, which showed a UTI. Since her CVA, she has been incontinent of urine, so this may be the likely culprit. Plan: Give Rocephin IV Q 24 hours, monitor urine out put and await culture results. Qualifiers: Urinary tract infection type: acute cystitis Hematuria presence: without hematuria Qualified Code(s): N30.00 - Acute cystitis without hematuria (4) Atrial fibrillation Impression: The patient has a long history of this and is normally on Xorelto at home, which is now on hold. She will be on Lovenox 40mg SQ daily immediately post-op , then consider re-starting her anticoagulant. Plan: Continue to monitor on telemetry, obtain an echo, and watch for changes in neuro status. Qualifiers: Atrial fibrillation type: chronic Qualified Code(s): I48.2 - Chronic atrial fibrillation (5) Presence of stent in coronary artery in patient with coronary artery disease Impression: The patient is prescribed Plavix for some recent coronary stenting, that was on hold prior to surgery. This was re-started on POD #1, as per conversation with orthopedic surgery. Plan: Continue to monitor for signs of bleeding and give prescribed Plavix. (6) Diabetes type 2, controlled Impression: The patient is prescribed Jardiance at home, that was on hold as per hospital protocol while in patient. She was started on Lantus 10 units SQ today as her early AM sugars have been greater than 200. A HgA1C was 8.6% at the time of admission. She should plan to follow up with her PCP after discharge from SNF to get her DM better managed. Plan: Continue to monitor blood glucose and give Lantus Q 24 hours. Qualifiers: Diabetes mellitus assistant terminal manager insulin use: without assistant terminal manager use Diabetes mellitus complication status: without complication Qualified Code(s): E11.9 - Type 2 diabetes mellitus without complications (7) History of stroke with residual deficit Impression: Upon exam the patient has very mild left sided neglect, this can be noticed while she is ambulating and during a bilateral hand oracle consultant as the left is slightly more weak. This was likely a result of her chronic atrial fib. She was previously on Xorelto, but I will recommend Eliquis when it is time to restart the blood thinner. Plan: Fall precautions and plan to re-start chronic blood thinner on day 10 post op.
[2018-03-08] MEDS: POLYETHYLENE GLYCOL 3350 17 GM PACKET PO SCH (09:10)
[2018-03-08] MEDS: diltiaZEM CD 120 MG CAPSULE PO SCH (09:11)
[2018-03-08] MEDS: AMIODARONE 200 MG TABLET PO SCH (09:11)
[2018-03-08] MEDS: ENOXAPARIN 40 MG/0.4 ML SYRINGE SUBQ SCH (09:11)
[2018-03-08] MEDS: SENNA 8.6 MG TABLET PO SCH (09:11)
[2018-03-08] MEDS: cefTRIAXone 1 GM in SODIUM CHLORIDE 0.9% MINIBAG 100 ML IV SCH (09:11)
[2018-03-08] MEDS: ESCITALOPRAM 10 MG TABLET PO SCH (09:11)
[2018-03-08] MEDS: HYDROcod/ACETAM 5/325 MG TABLET PO PRN ×4 (09:11→23:38)
[2018-03-08] MEDS: DOCUSATE SODIUM 250 MG CAPSULE PO SCH (09:11)
[2018-03-08] MEDS: NYSTATIN CREAM 15 GM TUBE TOP SCH ×2 (09:12→21:05)
[2018-03-08] MEDS: ZINC OXIDE 20% OINT 28.35 GM TUBE TOP SCH ×2 (09:12→21:05)
[2018-03-08] MEDS: INSULIN GLARGINE 300 UNIT/3 ML PEN SUBQ SCH (12:14)
[2018-03-08] MEDS: CLOPIDOGREL 75 MG TABLET PO SCH (12:14)
[2018-03-08] MEDS: AMOX/CLAV 875 MG/125 MG TABLET PO SCH ×2 (12:14→21:04)
--- NOTE | 2018-03-08 12:49 | PROVIDER PROGRESS NOTE ---
Subjective - Prog Note Date Prog Note Date: 03/08/18 Prog Note Time: 12:45 - Subjective Pt reports feeling: Improved (States no pain from the hip today. Only a mild headache. Has been up with a walker and right now is sitting in a chair eating lunch, smiling and sensorium is clear.) Current Medications - Current Medications Current Medications: on lovenox. Plan is to change to eliquis if eligible on POD 11. on ceftriaxone for combination perioperative prophylaxis and treatment of her UTI. She had second dose this morning and starting tomorrow will switch to amoxicillin, (todays culture report shows e coli sens amox.) We discussed weaning completely off opiates and reducing some meds which may be interacting or contributing to drowsiness. Objective - Vital Signs/Intake & Output Reviewed Vital Signs: Yes Vital Signs: Vital Signs x48h Temp Pulse Resp BP BP Pulse Ox 03/08/18 07:40 36.9 C 75 20 119/54 L 94 03/08/18 04:56 36.7 C 80 18 136/59 H 95 Intake & Output: Intake & Output 03/05/18 03/06/18 03/07/18 03/08/18 23:59 23:59 23:59 23:59 Intake Total 2030.0 3792.5 2222.50 1696.25 Output Total 875 1100 2550 1050 Balance 1155.0 2692.5 -327.50 646.25 - Objective General Appearance: positive: No acute distress, Alert Eyes Bilateral: positive: Normal inspection ENT: positive: ENT inspection nml Neck: positive: Nml inspection Peripheral Pulses: 2+ Dorsalis pedis (R), 2+ Dorsalis pedis (L), 2+ Posterior tibialis (R), 2+ Posterior tibialis (L) Abdomen: positive: Non-tender Skin: positive: Color nml, No rash Extremities: positive: Full ROM, No pedal edema, Other (Mepilex dressing clean dry and intact, good seal on skin and outside of the diaper.) Neurologic/Psychiatric: positive: Oriented x3 - Lab Results Fish Bones: 03/07/18 05:09 03/07/18 05:09 Other Labs: Lab Results x24hrs 03/08/18 03/08/18 03/08/18 Range/Units 11:58 07:42 04:45 PT 12.5 (9.9-12.6) secs INR 1.1 (0.8-1.2) POC Whole Bld Glucose 164 H 194 H (70 - 100) mg/dL 03/07/18 03/07/18 03/07/18 Range/Units 20:19 16:58 05:35 PT (9.9-12.6) secs INR (0.8-1.2) POC Whole Bld Glucose 239 H 231 H 92 (70 - 100) mg/dL 03/07/18 03/06/18 03/06/18 Range/Units 00:40 20:30 16:23 PT (9.9-12.6) secs INR (0.8-1.2) POC Whole Bld Glucose 104 H 152 H 167 H (70 - 100) mg/dL 03/06/18 03/06/18 03/05/18 Range/Units 11:54 07:30 20:32 PT (9.9-12.6) secs INR (0.8-1.2) POC Whole Bld Glucose 159 H 86 146 H (70 - 100) mg/dL 03/05/18 03/05/18 03/05/18 Range/Units 16:33 11:59 06:02 PT (9.9-12.6) secs INR (0.8-1.2) POC Whole Bld Glucose 163 H 160 H 191 H (70 - 100) mg/dL - Diagnostic Imaging Diagnostic Imaging Results: positive: Final report reviewed Diagnostic Imaging Comments: s/p right hip hemiarthroplasty ABX Reporting Has patient been on IV antibiotics over the past 48 hours?: Yes Assessment/Plan - Problem List (1) Hip fracture, right Impression: doing well post op. Making good progress with PT. Plan is d/c to rehab hospital given her multiple baseline limitations and comorbidities. MEDS: on lovenox. Plan is to change to Eliquis if eligible on POD 11. on ceftriaxone for combination perioperative prophylaxis and treatment of her UTI. She had second dose this morning and starting tomorrow will switch to amoxicillin, (todays culture report shows e coli sens amox.) We discussed weaning completely off opiates and reducing some meds which may be interacting or contributing to drowsiness. Qualifiers: Encounter type: subsequent encounter Fracture type: closed Fracture healing: with routine healing Qualified Code(s): S72.001D - Fracture of unspecified part of neck of right femur, subsequent encounter for closed fracture with routine healing
[2018-03-09] MEDS: diazePAM 5 MG TABLET PO PRN (02:49)
[2018-03-09 05:04] LABS: INR 1.2 (0.8-1.2)
[2018-03-09] MEDS: HYDROcod/ACETAM 5/325 MG TABLET PO PRN ×3 (05:24→18:45)
--- NOTE | 2018-03-09 07:36 | PROVIDER PROGRESS NOTE ---
Subjective - General Admit Date: 03/04/18 Procedure Date: 03/07/18 Post Op Days: 2 Procedure Performed: right hip hemiarthroplasty - Review of Systems Wound/Incisions: positive: Healing well, No drainage, Other (wound c/d/i. No erythema, fluctuance or drainage. Change mepilex to antibiotic ointment + tegaderm.) General: positive: No symptoms HEENT: positive: No symptoms Pulmonary: positive: No symptoms Cardiovascular: positive: No symptoms Gastrointestinal: positive: No symptoms Genitourinary: positive: Incontinence Musculoskeletal: positive: Back pain, Other (right hip/groin pain) Skin: positive: Rash (adult diaper rash) Psychiatric: positive: No symptoms, Other (reports was hallucinating/ sleepwalking at the time of her fall on Sat night. Has had this with Ambien.) All Other Systems: positive: Reviewed and negative - Other Other Information/Narrative: Had some urinary urge last night (a few hours after neville removed), but unable to void and bladder scan showed low volume, c/w urethral irritation Objective - Patient Data Reviewed Vital Signs: Yes Vital Signs: Vital Signs x48h Temp Pulse Resp BP Pulse Ox 03/09/18 00:09 37.3 C 79 18 124/57 L 95 Intake & Output: Intake and Output Totals x24h 03/07/18 03/08/18 03/09/18 23:59 23:59 23:59 Intake Total 2222.50 3180.00 Output Total 2550 2000 Balance -327.50 1180.00 - Lab Results Lab Results: 03/07/18 05:09 03/07/18 05:09 Other Lab Results: Lab Results x24hrs 03/09/18 03/08/18 03/08/18 Range/Units 04:25 20:22 16:40 PT 13.0 H (9.9-12.6) secs INR 1.2 (0.8-1.2) POC Whole Bld Glucose 237 H 209 H (70 - 100) mg/dL 03/08/18 03/08/18 03/07/18 Range/Units 11:58 07:42 20:19 PT (9.9-12.6) secs INR (0.8-1.2) POC Whole Bld Glucose 164 H 194 H 239 H (70 - 100) mg/dL 03/07/18 03/07/18 03/07/18 Range/Units 16:58 05:35 00:40 PT (9.9-12.6) secs INR (0.8-1.2) POC Whole Bld Glucose 231 H 92 104 H (70 - 100) mg/dL 03/06/18 03/06/18 03/06/18 Range/Units 20:30 16:23 11:54 PT (9.9-12.6) secs INR (0.8-1.2) POC Whole Bld Glucose 152 H 167 H 159 H (70 - 100) mg/dL 03/06/18 03/05/18 03/05/18 Range/Units 07:30 20:32 16:33 PT (9.9-12.6) secs INR (0.8-1.2) POC Whole Bld Glucose 86 146 H 163 H (70 - 100) mg/dL 03/05/18 03/05/18 Range/Units 11:59 06:02 PT (9.9-12.6) secs INR (0.8-1.2) POC Whole Bld Glucose 160 H 191 H (70 - 100) mg/dL - Current Medications Current Medications: Current Medications Generic Name Dose Route Start Last Admin Trade Name Freq PRN Reason Stop Dose Admin Acetaminophen 650 mg 03/06/18 01:40 03/08/18 04:12 Tylenol PO 650 mg Q4HR PRN Administration Pain or Fever > 38C (100.4F) Hydrocodone Bitart/Acetaminophen 1 tab 03/08/18 11:41 03/09/18 05:24 [place] 5/325 PO 1 tab Q4H PRN Administration PAIN Amiodarone HCl 200 mg 03/05/18 11:00 03/08/18 09:11 Pacerone PO 200 mg DAILY ACE Administration Amoxicillin/Clavulanate Potassium 1 tab 03/08/18 12:00 03/08/18 21:04 Augmentin 875/125 PO 1 tab BID ACE Administration Clopidogrel Bisulfate 75 mg 03/08/18 12:00 03/08/18 12:14 Plavix PO 75 mg DAILY ACE Administration Diazepam 5 mg 03/05/18 07:50 03/09/18 02:49 Valium PO 5 mg TID PRN Administration Anxiety Diltiazem HCl 120 mg 03/05/18 10:15 03/08/18 09:11 Cardizem Cd PO 120 mg DAILY ACE Administration Docusate Sodium 250 - 500 mg 03/08/18 09:00 03/08/18 09:11 Colace 250mg Capsule PO 250 mg DAILY ACE Administration Enoxaparin Sodium 40 mg 03/08/18 08:00 03/08/18 09:11 Lovenox SUBQ 40 mg DAILY ACE Administration Escitalopram Oxalate 10 mg 03/07/18 09:00 03/08/18 09:11 Lexapro PO 10 mg DAILY [facility] Administration Hydromorphone HCl 0.5 mg 03/04/18 23:59 03/08/18 21:05 Dilaudid Inj Syringe IVP 0.5 mg Q2H PRN Administration Pain 8 to 10 Ceftriaxone Sodium 1 gm/ 100 mls @ 200 mls/hr 03/07/18 09:00 03/08/18 10:06 Sodium Chloride IV Infused DAILY ACE Infusion Insulin Aspart 1 - 9 unit 03/05/18 12:00 03/08/18 21:06 Novolog SUBQ 5 unit 0800,1200,1700,2100 ACE Administration Protocol Insulin Glargine 10 unit 03/08/18 12:00 03/08/18 12:14 Lantus Solostar SUBQ 10 unit DAILY ACE Administration Mineral Oil 1 applic 03/05/18 01:09 03/05/18 01:34 Cavilon TOP 1 applic PRN PRN Administration Skin Care Multi-Ingredient Ointment 1 applic 03/06/18 22:00 03/08/18 21:05 Zinc Oxide TOP 1 applic BID ACE Administration Nystatin 1 applic 03/06/18 22:00 03/08/18 21:05 Mycostatin Cream TOP 1 applic BID ACE Administration (Nebivolol Hcl [ 1 each 03/05/18 11:00 03/08/18 21:06 Bystolic] 10 Mg) Tab PO 1 each BID ACE Administration Polyethylene Glycol 17 gm 03/05/18 09:00 03/08/18 09:10 Miralax PO 17 gm DAILY [facility] Administration Senna 8.6 - 17.2 mg 03/08/18 09:00 03/08/18 09:11 Senokot PO 8.6 mg DAILY ACE Administration Sodium Chloride 10 ml 03/04/18 23:59 03/08/18 06:11 Normal Saline Flush 0.9% IVP 10 ml PRN PRN Administration NEEDED PER PROVIDER ORDERS Sodium Chloride 10 ml 03/05/18 01:00 03/08/18 23:43 Normal Saline Flush 0.9% IVP 10 ml 0100,0900,1700 ACE Administration - Physical Exam Wound/Incisions: positive: Healing well General Appearance: positive: No acute distress, Alert Eyes Bilateral: positive: Normal inspection ENT: positive: ENT inspection nml Neck: positive: Nml inspection Abdomen: positive: Non-tender Extremities: positive: Non-tender, Full ROM, Nml appearance Neurologic/Psychiatric: positive: Oriented x3 Impression/Plan - Problem List Problem List: doing well post op day 2 urethral irritation from catheter. Will observe for a few days. still on abx for uti. continue with lovenox through pod 10, then eliquis if eligible attempt to wean completely off narcotic pain med over the next few days.
[2018-03-09] MEDS: INSULIN ASPART 300 UNIT/3 ML PEN SUBQ SCH ×4 (08:51→20:39)
[2018-03-09] MEDS: HYDROmorphone 0.5 MG/0.5 ML SYRINGE IVP PRN ×2 (08:54→13:11)
[2018-03-09] MEDS: SODIUM CHLORIDE FLUSH 0.9% 10 ML SYRINGE IVP SCH ×2 (08:55→20:43)
--- NOTE | 2018-03-09 09:02 | ADVANCE CARE PLANNING NOTE ---
Advance Care Planning - Date/Time Date: 03/13/18 Time: 09:00 - Purpose of encounter Text: Assist with filling out POLST form, establish code status and goals of care. - Parties in attendance Parties in attendance: Myself-CA Dhaliwal; patient-Gato Patel; sister-Jessica; RN-Hazel - Decisional capacity Decisional capacity of: The patient has full decisional capacity. - Subjective/Patient's story Subjective/Patient's story: Gato states that she would like all resuscitation efforts made in the event of an emergency. - Objective/Medical story Objective/Medical Story: When the patient was asked about the 4 aspects of resuscitation including; chest compression, shocking, intubation, and cardiac medications. Her answer to each was YES. She was alert, made good eye contact and could repeat all topics back to me. She wishes for her or sister, Jessica to take it from there as to whether to keep alive if she is found with brain damage. - Goals of Care Goals of care determinations: Goals of care were made clear; Continue with post-op course, fix any problems that may arise and decide in the moment if those procedures, tests or interventions are worth the risk involved. Maintain a attempt resuscitation status, but "pull the plug" in the event of no or impaired brain activity. Next of kin is the patient's , and then her sister, Jessica. - Plan Plan: Continue care, plan for SNF if when the time to discharge this is still needed. - Code Status Code Status: Attempt Resuscitation - Time Spent on Advance Care Planning Time spent on advance care plannin
[2018-03-09] MEDS: POLYETHYLENE GLYCOL 3350 17 GM PACKET PO SCH (09:17)
[2018-03-09] MEDS: AMOX/CLAV 875 MG/125 MG TABLET PO SCH ×2 (09:17→20:43)
[2018-03-09] MEDS: AMIODARONE 200 MG TABLET PO SCH (09:17)
[2018-03-09] MEDS: ESCITALOPRAM 10 MG TABLET PO SCH (09:17)
[2018-03-09] MEDS: DOCUSATE SODIUM 250 MG CAPSULE PO SCH (09:18)
[2018-03-09] MEDS: SENNA 8.6 MG TABLET PO SCH (09:18)
[2018-03-09] MEDS: diltiaZEM CD 120 MG CAPSULE PO SCH (09:19)
[2018-03-09] MEDS: ENOXAPARIN 40 MG/0.4 ML SYRINGE SUBQ SCH (09:19)
[2018-03-09] MEDS: CLOPIDOGREL 75 MG TABLET PO SCH (09:19)
[2018-03-09] MEDS: INSULIN GLARGINE 300 UNIT/3 ML PEN SUBQ SCH (09:21)
[2018-03-09] MEDS: ZINC OXIDE 20% OINT 28.35 GM TUBE TOP SCH ×2 (09:22→20:45)
[2018-03-09] MEDS: NYSTATIN CREAM 15 GM TUBE TOP SCH ×2 (09:22→20:45)
[2018-03-09] MEDS: KETOROLAC 10 MG TABLET PO PRN ×2 (12:31→23:47)
[2018-03-09 12:59] LABS: BASOPHILS # (AUTO) 0.1 10^3/uL (0.0-0.1); BASOPHILS % (AUTO) 0.5 %; EOSINOPHILS # (AUTO) 0.2 10^3/uL (0.0-0.7); EOSINOPHILS % (AUTO) 2.3 %; HGB - HEMOGLOBIN 11.9 g/dL (12.0-16.0); LYMPHOCYTES # (AUTO) 2.5 10^3/uL (1.5-3.5); LYMPHOCYTES % (AUTO) 24.2 %; MEAN CORPUSCULAR HEMOGLOBIN 32.5 pg (27.0-31.0); MEAN CORPUSCULAR HGB CONC 34.4 g/dL (32.0-36.0); MEAN CORPUSCULAR VOLUME 94.6 fL (81.0-99.0); MEAN PLATELET VOLUME 8.6 fL (7.9-10.8); MONOCYTES # (AUTO) 0.8 10^3/uL (0.0-1.0); MONOCYTES % (AUTO) 7.5 %; NEUTROPHILS # (AUTO) 6.8 10^3/uL (1.5-6.6); NEUTROPHILS % (AUTO) 65.5 %; PLT - PLATELET COUNT 310 10^3/uL (130-450); RED BLOOD COUNT 3.67 10^6/uL (4.20-5.40); RED CELL DISTRIBUTION WIDTH 13.6 % (12.0-15.0); WHITE BLOOD COUNT 10.4 x10^3/uL (4.8-10.8)
[2018-03-09 13:17] LABS: ALBUMIN 3.3 g/dL (3.2-5.5); BILIRUBIN,TOTAL 0.8 mg/dL (0.2-1.0); CALCIUM 8.7 mg/dL (8.5-10.3); CREATININE 0.5 mg/dL (0.4-1.0); TOTAL PROTEIN 6.7 g/dL (6.7-8.2)
--- NOTE | 2018-03-09 17:43 | PROVIDER PROGRESS NOTE ---
Subjective - Prog Note Date Prog Note Date: 03/09/18 Prog Note Time: 11:00 - Subjective Pt reports feeling: Improved Subjective: Gato admits to improvement, and states that she has very little pain from her right hip. She denies SOB, chest pain or tightness, nausea, vomiting, or a new cough. She states that she did not sleep well. Current Medications - Current Medications Current Medications: Active Medications Acetaminophen (Tylenol) 650 mg PO Q4HR PRN PRN Reason: Pain or Fever > 38C (100.4F) Last Admin: 03/08/18 04:12 Dose: 650 mg Hydrocodone Bitart/Acetaminophen ([place] 5/325) 1 tab PO Q4H PRN PRN Reason: PAIN Last Admin: 03/09/18 11:22 Dose: 1 tab Amiodarone HCl (Pacerone) 200 mg PO DAILY [facility] Last Admin: 03/09/18 09:17 Dose: 200 mg Amoxicillin/Clavulanate Potassium (Augmentin 875/125) 1 tab PO BID [facility] Last Admin: 03/09/18 09:17 Dose: 1 tab Clopidogrel Bisulfate (Plavix) 75 mg PO DAILY [facility] Last Admin: 03/09/18 09:19 Dose: 75 mg Diazepam (Valium) 5 mg PO TID PRN PRN Reason: Anxiety Last Admin: 03/09/18 02:49 Dose: 5 mg Diltiazem HCl (Cardizem Cd) 120 mg PO DAILY [facility] Last Admin: 03/09/18 09:19 Dose: 120 mg Docusate Sodium (Colace 250mg Capsule) 250 - 500 mg PO DAILY [facility] Last Admin: 03/09/18 09:18 Dose: 500 mg Enoxaparin Sodium (Lovenox) 40 mg SUBQ DAILY [facility] Last Admin: 03/09/18 09:19 Dose: 40 mg Escitalopram Oxalate (Lexapro) 10 mg PO DAILY [facility] Last Admin: 03/09/18 09:17 Dose: 10 mg Hydromorphone HCl (Dilaudid Inj Syringe) 0.5 mg IVP Q2H PRN PRN Reason: Pain 8 to 10 Last Admin: 03/09/18 13:11 Dose: 0.5 mg Insulin Aspart (Novolog) 1 - 9 unit SUBQ 0800,1200,1700,2100 [facility] PRN Reason: Protocol Last Admin: 03/09/18 17:12 Dose: Not Given Insulin Glargine (Lantus Solostar) 10 unit SUBQ DAILY [facility] Last Admin: 03/09/18 09:21 Dose: 10 unit Ketorolac Tromethamine (Toradol) 10 mg PO Q6HR PRN PRN Reason: PAIN Stop: 03/14/18 11:50 Last Admin: 03/09/18 12:31 Dose: 10 mg Mineral Oil (Cavilon) 1 applic TOP PRN PRN PRN Reason: Skin Care Last Admin: 03/05/18 01:34 Dose: 1 applic Multi-Ingredient Ointment (Zinc Oxide) 1 applic TOP BID [facility] Last Admin: 03/09/18 09:22 Dose: 1 applic Nystatin (Mycostatin Cream) 1 applic TOP BID [facility] Last Admin: 03/09/18 09:22 Dose: 1 applic Ondansetron HCl (Zofran Inj) 4 mg IVP Q6HR PRN PRN Reason: Nausea / Vomiting (Nebivolol Hcl [ (Bystolic] 10 Mg) Tab) 1 each PO BID [facility] Last Admin: 03/09/18 09:20 Dose: 1 each Polyethylene Glycol (Miralax) 17 gm PO DAILY [facility] Last Admin: 03/09/18 09:17 Dose: 17 gm Prochlorperazine Edisylate (Compazine Inj) 10 mg IVP Q6HR PRN PRN Reason: Nausea / Vomiting Senna (Senokot) 8.6 - 17.2 mg PO DAILY [facility] Last Admin: 03/09/18 09:18 Dose: 17.2 mg Sodium Chloride (Normal Saline Flush 0.9%) 10 ml IVP PRN PRN PRN Reason: NEEDED PER PROVIDER ORDERS Last Admin: 03/08/18 06:11 Dose: 10 ml Sodium Chloride (Normal Saline Flush 0.9%) 10 ml IVP 0100,0900,1700 [facility] Last Admin: 03/09/18 08:55 Dose: 10 ml Zolpidem [Ambien] 10 mg PO QPM 03/10/15 Amiodarone [Pacerone] 200 mg PO DAILY 03/04/18 Clopidogrel Bisulfate [Clopidogrel] 75 mg PO DAILY 03/04/18 Diltiazem HCl [Diltiazem 24Hr ER] 120 mg PO DAILY 03/04/18 Escitalopram [Lexapro] 10 mg PO DAILY 03/04/18 Nebivolol HCl [Bystolic] 10 mg PO BID 03/04/18 Rivaroxaban [Xarelto] 20 mg PO DAILY 03/04/18 Empagliflozin [Jardiance] 25 mg PO DAILY 03/05/18 Evolocumab [Repatha Sureclick] 140 mg SUBQ Q14D 03/05/18 HYDROcod/ACETAM 5/325 [[place] 5/325] 1 tab PO BID PRN 03/05/18 Pramipexole Di-HCl [Mirapex ER] 0.75 mg PO QPM PRN 03/05/18 Objective - Vital Signs/Intake & Output Reviewed Vital Signs: Yes Vital Signs: Vital Signs x48h Temp Pulse Resp BP BP Pulse Ox 03/09/18 17:20 37.1 C 83 18 145/67 H 100 03/09/18 11:48 81 19 141/64 H 96 Intake & Output: Intake & Output 03/06/18 03/07/18 03/08/18 03/09/18 23:59 23:59 23:59 23:59 Intake Total 3792.5 2222.50 3180.00 440 Output Total 1100 2550 2000 Balance 2692.5 -327.50 1180.00 440 - Objective General Appearance: positive: No acute distress, Alert, Lethargic Eyes Bilateral: positive: Normal inspection, PERRL Eyes: OU Conjunctivae pale ENT: positive: ENT inspection nml, Pharynx nml, Dry mucous membranes Neck: positive: Nml inspection, Thyroid nml, No JVD, Lymphadenopathy (R), Lymphadenopathy (L), Stiff neck Respiratory: positive: Chest non-tender, No respiratory distress, Other ( diminished with bilateral low lobe crackles.) Cardiovascular: positive: No gallop, Irregularly irregular, Systolic murmur Peripheral Pulses: 1+ Dorsalis pedis (R), 1+ Dorsalis pedis (L) Abdomen: positive: Non-tender, Nml bowel sounds, Other (obese, soft, hypo active ) Back: positive: Nml inspection Skin: positive: No rash, Warm, Dry, Other (pale) Extremities: positive: Pedal edema (chronic BLE edema), Joint swelling Neurologic/Psychiatric: positive: Oriented x3, CN's nml (2-12), Motor nml, Sensation nml, Weakness, Depressed mood/affect, Other (baseline delay) Reflexes: Bicep (R): 3+, Bicep (L): 2+ - Lab Results Fish Bones: 03/13/18 05:06 03/13/18 05:06 Other Labs: Lab Results x24hrs 03/09/18 03/09/18 03/09/18 Range/Units 16:38 12:14 12:14 WBC 10.4 (4.8-10.8) x10^3/uL RBC 3.67 L (4.20-5.40) 10^6/uL Hgb 11.9 L (12.0-16.0) g/dL Hct 34.7 L (37.0-47.0) % MCV 94.6 (81.0-99.0) fL MCH 32.5 H (27.0-31.0) pg MCHC 34.4 (32.0-36.0) g/dL RDW 13.6 (12.0-15.0) % Plt Count 310 (130-450) 10^3/uL MPV 8.6 (7.9-10.8) fL Neut # (Auto) 6.8 H (1.5-6.6) 10^3/uL Lymph # (Auto) 2.5 (1.5-3.5) 10^3/uL [place] # (Auto) 0.8 (0.0-1.0) 10^3/uL Eos # (Auto) 0.2 (0.0-0.7) 10^3/uL Baso # (Auto) 0.1 (0.0-0.1) 10^3/uL Absolute Nucleated RBC 0.00 x10^3/uL Nucleated RBC % 0.0 /100WBC PT (9.9-12.6) secs INR (0.8-1.2) Sodium 134 L (135-145) mmol/L Potassium 3.7 (3.5-5.0) mmol/L Chloride 102 (101-111) mmol/L Carbon Dioxide 22 (21-32) mmol/L Anion Gap 10.0 (6-13) BUN 11 (6-20) mg/dL Creatinine 0.5 (0.4-1.0) mg/dL Estimated GFR (MDRD) 125 (>89) Glucose 146 H (70-100) mg/dL POC Whole Bld Glucose 123 H (70 - 100) mg/dL Calcium 8.7 (8.5-10.3) mg/dL Total Bilirubin 0.8 (0.2-1.0) mg/dL AST 26 (10-42) IU/L ALT 111 H (10-60) IU/L Alkaline Phosphatase 274 H (42-121) IU/L Total Protein 6.7 (6.7-8.2) g/dL Albumin 3.3 (3.2-5.5) g/dL Globulin 3.4 (2.1-4.2) g/dL Albumin/Globulin Ratio 1.0 (1.0-2.2) 03/09/18 03/09/18 03/09/18 Range/Units 11:46 08:04 04:25 WBC (4.8-10.8) x10^3/uL RBC (4.20-5.40) 10^6/uL Hgb (12.0-16.0) g/dL Hct (37.0-47.0) % MCV (81.0-99.0) fL MCH (27.0-31.0) pg MCHC (32.0-36.0) g/dL RDW (12.0-15.0) % Plt Count (130-450) 10^3/uL MPV (7.9-10.8) fL Neut # (Auto) (1.5-6.6) 10^3/uL Lymph # (Auto) (1.5-3.5) 10^3/uL [place] # (Auto) (0.0-1.0) 10^3/uL Eos # (Auto) (0.0-0.7) 10^3/uL Baso # (Auto) (0.0-0.1) 10^3/uL Absolute Nucleated RBC x10^3/uL Nucleated RBC % /100WBC PT 13.0 H (9.9-12.6) secs INR 1.2 (0.8-1.2) Sodium (135-145) mmol/L Potassium (3.5-5.0) mmol/L Chloride (101-111) mmol/L Carbon Dioxide (21-32) mmol/L Anion Gap (6-13) BUN (6-20) mg/dL Creatinine (0.4-1.0) mg/dL Estimated GFR (MDRD) (>89) Glucose (70-100) mg/dL POC Whole Bld Glucose 142 H 110 H (70 - 100) mg/dL Calcium (8.5-10.3) mg/dL Total Bilirubin (0.2-1.0) mg/dL AST (10-42) IU/L ALT (10-60) IU/L Alkaline Phosphatase (42-121) IU/L Total Protein (6.7-8.2) g/dL Albumin (3.2-5.5) g/dL Globulin (2.1-4.2) g/dL Albumin/Globulin Ratio (1.0-2.2) / Range/Units 20:22 WBC (4.8-10.8) x10^3/uL RBC (4.20-5.40) 10^6/uL Hgb (12.0-16.0) g/dL Hct (37.0-47.0) % MCV (81.0-99.0) fL MCH (27.0-31.0) pg MCHC (32.0-36.0) g/dL RDW (12.0-15.0) % Plt Count (130-450) 10^3/uL MPV (7.9-10.8) fL Neut # (Auto) (1.5-6.6) 10^3/uL Lymph # (Auto) (1.5-3.5) 10^3/uL [place] # (Auto) (0.0-1.0) 10^3/uL Eos # (Auto) (0.0-0.7) 10^3/uL Baso # (Auto) (0.0-0.1) 10^3/uL Absolute Nucleated RBC x10^3/uL Nucleated RBC % /100WBC PT (9.9-12.6) secs INR (0.8-1.2) Sodium (135-145) mmol/L Potassium (3.5-5.0) mmol/L Chloride (101-111) mmol/L Carbon Dioxide (21-32) mmol/L Anion Gap (6-13) BUN (6-20) mg/dL Creatinine (0.4-1.0) mg/dL Estimated GFR (MDRD) (>89) Glucose (70-100) mg/dL POC Whole Bld Glucose 237 H (70 - 100) mg/dL Calcium (8.5-10.3) mg/dL Total Bilirubin (0.2-1.0) mg/dL AST (10-42) IU/L ALT (10-60) IU/L Alkaline Phosphatase (42-121) IU/L Total Protein (6.7-8.2) g/dL Albumin (3.2-5.5) g/dL Globulin (2.1-4.2) g/dL Albumin/Globulin Ratio (1.0-2.2) - Diagnostic Imaging Diagnostic Imaging Results: positive: Prelim report reviewed, Final report reviewed ABX Reporting Has patient been on IV antibiotics over the past 48 hours?: Yes Assessment/Plan - Problem List (1) Atrial fibrillation Impression: The patient has a long history of this and is normally on Xorelto at home, which is now on hold. She will be on Lovenox 40mg SQ daily immediately post-op , then plan to restart Eliquis as this will be some what less likely to cause a bleed from her surgical site. Plan: Continue to monitor on telemetry, obtain an echo, and watch for changes in neuro status. Qualifiers: Atrial fibrillation type: chronic Qualified Code(s): I48.2 - Chronic atrial fibrillation (2) Hip fracture, right Impression: The patient suffered a subcapital R hip fracture sustained after a mechanical ground level fall prior to presentation to the ED. She was ambulating with her walker, tripped, fell backwards onto her R hip, and was unable to return to standing or bear weight on her RLE. She denied any dizziness or syncope leading up to the fall or loss of consciousness. Her sister, who she has been staying with, assisted her off of the floor and imaging confirmed a right femur fracture. The patient did not have surgery immediately, instead waited for 48 hours for her Xarelto to wear off. She underwent surgical repair on 03/[address] Boudreaux. Plan: Physical therapy and watch for signs of bleeding. Qualifiers: Encounter type: subsequent encounter Fracture type: closed Fracture healing: with routine healing Qualified Code(s): S72.001D - Fracture of unspecified part of neck of right femur, subsequent encounter for closed fracture with routine healing (3) UTI (urinary tract infection) Impression: A urine sample was obtained in the ED, which showed a UTI. Since her CVA, she has been incontinent of urine, so this may be the likely culprit. Preliminary results show e. coli, with final sensitivities pending. Plan: Give Rocephin IV Q 24 hours, monitor urine out put and await culture results. Qualifiers: Urinary tract infection type: acute cystitis Hematuria presence: without hematuria Qualified Code(s): N30.00 - Acute cystitis without hematuria (4) Diabetes type 2, controlled Impression: The patient is prescribed Jardiance at home, that was on hold as per hospital protocol while in patient. She was started on Lantus 10 units SQ today as her early AM sugars have been greater than 200. A HgA1C was 8.6% at the time of admission. Plan: Continue to monitor blood glucose and give Lantus Q 24 hours. Qualifiers: Diabetes mellitus mcfp insulin use: without mcfp use Diabetes mellitus complication status: without complication Qualified Code(s): E11.9 - Type 2 diabetes mellitus without complications (5) History of stroke with residual deficit Impression: Upon exam the patient has very mild left sided neglect, this can be noticed while she is ambulating and during a bilateral hand program architect as the left is slightly more weak. This was likely a result of her chronic atrial fib. She was previously on Xorelto, but will be started on Eliquis on day 10 post op as per conversation with ortho surgery. Plan: Fall precautions and plan to re-start chronic blood thinner on day 10 post op.
[2018-03-09] MEDS: ACETAMINOPHEN 325 MG TABLET PO PRN (21:16)
[2018-03-10] MEDS: SODIUM CHLORIDE FLUSH 0.9% 10 ML SYRINGE IVP SCH ×3 (00:17→16:44)
[2018-03-10] MEDS: diazePAM 5 MG TABLET PO PRN ×2 (00:22→22:45)
[2018-03-10] MEDS: ESCITALOPRAM 10 MG TABLET PO SCH (08:20)
[2018-03-10] MEDS: ENOXAPARIN 40 MG/0.4 ML SYRINGE SUBQ SCH (08:20)
[2018-03-10] MEDS: KETOROLAC 10 MG TABLET PO PRN ×3 (08:21→22:43)
[2018-03-10] MEDS: CLOPIDOGREL 75 MG TABLET PO SCH (08:21)
[2018-03-10] MEDS: DOCUSATE SODIUM 250 MG CAPSULE PO SCH (08:21)
[2018-03-10] MEDS: POLYETHYLENE GLYCOL 3350 17 GM PACKET PO SCH (08:21)
[2018-03-10] MEDS: AMIODARONE 200 MG TABLET PO SCH (08:21)
[2018-03-10] MEDS: SENNA 8.6 MG TABLET PO SCH (08:21)
[2018-03-10] MEDS: INSULIN ASPART 300 UNIT/3 ML PEN SUBQ SCH ×4 (08:31→20:57)
[2018-03-10] MEDS: AMOX/CLAV 875 MG/125 MG TABLET PO SCH ×2 (08:31→20:53)
[2018-03-10] MEDS: ACETAMINOPHEN 325 MG TABLET PO PRN (08:31)
[2018-03-10] MEDS: diltiaZEM CD 120 MG CAPSULE PO SCH (08:35)
[2018-03-10] MEDS: INSULIN GLARGINE 300 UNIT/3 ML PEN SUBQ SCH ×2 (08:36→12:29)
--- NOTE | 2018-03-10 09:54 | PROVIDER PROGRESS NOTE ---
Subjective - General Admit Date: 03/04/18 Procedure Date: 03/07/18 Post Op Days: 3 Procedure Performed: right hip hemiarthroplasty - Review of Systems Wound/Incisions: positive: Healing well, Dressing dry and intact General: positive: No symptoms HEENT: positive: No symptoms Pulmonary: positive: No symptoms Cardiovascular: positive: No symptoms Gastrointestinal: positive: No symptoms Genitourinary: positive: Incontinence, Retention (needing some help voiding still. ? narcotics) Musculoskeletal: positive: Back pain, Other (right hip/groin pain) Skin: positive: Rash (adult diaper rash) Psychiatric: positive: No symptoms, Other (reports was hallucinating/ sleepwalking at the time of her fall on Sat night. Has had this with Ambien.) All Other Systems: positive: Reviewed and negative - Other Other Information/Narrative: No c/os re hip. Feels "no pain". Able to move around in bed. Got up to bathroom a few times yesterday and has been using the walker. Objective - Patient Data Reviewed Vital Signs: Yes Vital Signs: Vital Signs x48h Temp Pulse Resp BP Pulse Ox 03/10/18 08:18 37.7 C H 80 17 146/61 H 96 Intake & Output: Intake and Output Totals x24h 03/08/18 03/09/18 03/10/18 23:59 23:59 23:59 Intake Total 3180.00 990 320 Output Total 2000 Balance 1180.00 990 320 - Lab Results Lab Results: 03/09/18 12:14 03/09/18 12:14 Other Lab Results: Lab Results x24hrs 03/10/18 03/09/18 03/09/18 Range/Units 07:38 20:32 16:38 WBC (4.8-10.8) x10^3/uL RBC (4.20-5.40) 10^6/uL Hgb (12.0-16.0) g/dL Hct (37.0-47.0) % MCV (81.0-99.0) fL MCH (27.0-31.0) pg MCHC (32.0-36.0) g/dL RDW (12.0-15.0) % Plt Count (130-450) 10^3/uL MPV (7.9-10.8) fL Neut # (Auto) (1.5-6.6) 10^3/uL Lymph # (Auto) (1.5-3.5) 10^3/uL [place] # (Auto) (0.0-1.0) 10^3/uL Eos # (Auto) (0.0-0.7) 10^3/uL Baso # (Auto) (0.0-0.1) 10^3/uL Absolute Nucleated RBC x10^3/uL Nucleated RBC % /100WBC Sodium (135-145) mmol/L Potassium (3.5-5.0) mmol/L Chloride (101-111) mmol/L Carbon Dioxide (21-32) mmol/L Anion Gap (6-13) BUN (6-20) mg/dL Creatinine (0.4-1.0) mg/dL Estimated GFR (MDRD) (>89) Glucose (70-100) mg/dL POC Whole Bld Glucose 78 131 H 123 H (70 - 100) mg/dL Calcium (8.5-10.3) mg/dL Total Bilirubin (0.2-1.0) mg/dL AST (10-42) IU/L ALT (10-60) IU/L Alkaline Phosphatase (42-121) IU/L Total Protein (6.7-8.2) g/dL Albumin (3.2-5.5) g/dL Globulin (2.1-4.2) g/dL Albumin/Globulin Ratio (1.0-2.2) 03/09/18 03/09/18 03/09/18 Range/Units 12:14 12:14 11:46 WBC 10.4 (4.8-10.8) x10^3/uL RBC 3.67 L (4.20-5.40) 10^6/uL Hgb 11.9 L (12.0-16.0) g/dL Hct 34.7 L (37.0-47.0) % MCV 94.6 (81.0-99.0) fL MCH 32.5 H (27.0-31.0) pg MCHC 34.4 (32.0-36.0) g/dL RDW 13.6 (12.0-15.0) % Plt Count 310 (130-450) 10^3/uL MPV 8.6 (7.9-10.8) fL Neut # (Auto) 6.8 H (1.5-6.6) 10^3/uL Lymph # (Auto) 2.5 (1.5-3.5) 10^3/uL [place] # (Auto) 0.8 (0.0-1.0) 10^3/uL Eos # (Auto) 0.2 (0.0-0.7) 10^3/uL Baso # (Auto) 0.1 (0.0-0.1) 10^3/uL Absolute Nucleated RBC 0.00 x10^3/uL Nucleated RBC % 0.0 /100WBC Sodium 134 L (135-145) mmol/L Potassium 3.7 (3.5-5.0) mmol/L Chloride 102 (101-111) mmol/L Carbon Dioxide 22 (21-32) mmol/L Anion Gap 10.0 (6-13) BUN 11 (6-20) mg/dL Creatinine 0.5 (0.4-1.0) mg/dL Estimated GFR (MDRD) 125 (>89) Glucose 146 H (70-100) mg/dL POC Whole Bld Glucose 142 H (70 - 100) mg/dL Calcium 8.7 (8.5-10.3) mg/dL Total Bilirubin 0.8 (0.2-1.0) mg/dL AST 26 (10-42) IU/L ALT 111 H (10-60) IU/L Alkaline Phosphatase 274 H (42-121) IU/L Total Protein 6.7 (6.7-8.2) g/dL Albumin 3.3 (3.2-5.5) g/dL Globulin 3.4 (2.1-4.2) g/dL Albumin/Globulin Ratio 1.0 (1.0-2.2) - Current Medications Current Medications: Current Medications Generic Name Dose Route Start Last Admin Trade Name Freq PRN Reason Stop Dose Admin Acetaminophen 650 mg 03/06/18 01:40 03/10/18 08:31 Tylenol PO 650 mg Q4HR PRN Administration Pain or Fever > 38C (100.4F) Hydrocodone Bitart/Acetaminophen 1 tab 03/08/18 11:41 03/09/18 18:45 [place] 5/325 PO 1 tab Q4H PRN Administration PAIN Amiodarone HCl 200 mg 03/05/18 11:00 03/10/18 08:21 Pacerone PO 200 mg DAILY ACE Administration Amoxicillin/Clavulanate Potassium 1 tab 03/08/18 12:00 03/10/18 08:31 Augmentin 875/125 PO 1 tab BID ACE Administration Clopidogrel Bisulfate 75 mg 03/08/18 12:00 03/10/18 08:21 Plavix PO 75 mg DAILY ACE Administration Diazepam 5 mg 03/05/18 07:50 03/10/18 00:22 Valium PO 5 mg TID PRN Administration Anxiety Diltiazem HCl 120 mg 03/05/18 10:15 03/10/18 08:35 Cardizem Cd PO 120 mg DAILY ACE Administration Docusate Sodium 250 - 500 mg 03/08/18 09:00 03/10/18 08:21 Colace 250mg Capsule PO 250 mg DAILY ACE Administration Enoxaparin Sodium 40 mg 03/08/18 08:00 03/10/18 08:20 Lovenox SUBQ 40 mg DAILY ACE Administration Escitalopram Oxalate 10 mg 03/07/18 09:00 03/10/18 08:20 Lexapro PO 10 mg DAILY ACE Administration Hydromorphone HCl 0.5 mg 03/04/18 23:59 03/09/18 13:11 Dilaudid Inj Syringe IVP 0.5 mg Q2H PRN Administration Pain 8 to 10 Insulin Aspart 1 - 9 unit 03/05/18 12:00 03/10/18 08:31 Novolog SUBQ Not Given 0800,1200,1700,2100 [facility] Protocol Insulin Glargine 10 unit 03/08/18 12:00 03/10/18 08:36 Lantus Solostar SUBQ 10 unit DAILY ACE Administration Ketorolac Tromethamine 10 mg 03/09/18 11:51 03/10/18 08:21 Toradol PO 03/14/18 11:50 10 mg Q6HR PRN Administration PAIN Mineral Oil 1 applic 03/05/18 01:09 03/05/18 01:34 Cavilon TOP 1 applic PRN PRN Administration Skin Care Multi-Ingredient Ointment 1 applic 03/06/18 22:00 03/09/18 20:45 Zinc Oxide TOP 1 applic BID ACE Administration Nystatin 1 applic 03/06/18 22:00 03/09/18 20:45 Mycostatin Cream TOP 1 applic BID ACE Administration (Nebivolol Hcl [ 1 each 03/05/18 11:00 03/10/18 08:36 Bystolic] 10 Mg) Tab PO 1 each BID ACE Administration Polyethylene Glycol 17 gm 03/05/18 09:00 03/10/18 08:21 Miralax PO 17 gm DAILY ACE Administration Senna 8.6 - 17.2 mg 03/08/18 09:00 03/10/18 08:21 Senokot PO 17.2 mg DAILY ACE Administration Sodium Chloride 10 ml 03/04/18 23:59 03/08/18 06:11 Normal Saline Flush 0.9% IVP 10 ml PRN PRN Administration NEEDED PER PROVIDER ORDERS Sodium Chloride 10 ml 03/05/18 01:00 03/10/18 00:17 Normal Saline Flush 0.9% IVP Not Given 0100,0900,1700 ACE - Physical Exam Wound/Incisions: positive: Healing well, Dressing dry and intact General Appearance: positive: No acute distress Eyes Bilateral: positive: Normal inspection ENT: positive: ENT inspection nml Neck: positive: Nml inspection Abdomen: positive: Non-tender Extremities: positive: Non-tender, Other (right le in symmetrical length and rotation. 2+ DP pulse. Neurovascularly intact distally.) Neurologic/Psychiatric: positive: Oriented x3 ABX Reporting Has patient been on IV antibiotics over the past 48 hours?: Yes Impression/Plan - Problem List Problem List: Right hip hemiarthroplasty, pod 3. Doing well from ortho standpoint. Her arrived yesterday and we met this morning. Ongoing medical management of multiple problems, much appreciated. Patient understands she will go to SNF today for further help with recovery and rehab. Understands need to wean narcotics, insomnia meds, and other meds which could be clouding her sensorium to a bare minimum. and agree. 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 Will need follow up with an orthopedic surgeon in 7-14days for wound check and staple removal. She agrees to seek f/u care with her personal orthopedic surgeon when she gets back home to [place].
[2018-03-10] MEDS: NYSTATIN CREAM 15 GM TUBE TOP SCH ×2 (11:15→20:53)
[2018-03-10] MEDS: ZINC OXIDE 20% OINT 28.35 GM TUBE TOP SCH ×2 (11:32→20:54)
[2018-03-10] MEDS: MIN OIL/DIMETHICON/COCONUT OIL 92 GM TUBE TOP PRN (11:33)
--- NOTE | 2018-03-10 12:00 | Discharge Plan ---
"Discharge Plan for SNF / EMPERATRIZ - DC Plan and Transition Orders Disposition: 03 SNF DC/Xfer Condition: Good SNF Transition Orders: Admit to: Care Age under the care of Dr. Daniel Discharge Diagnosis: Closed, displaced RIGHT hip femoral neck fracture, pathologic secondary to osteoporosis, post op state, UTI, CVA with left sided weakness, chronic atrial fibrillation, CAD with coronary stents, DM type 2-non- insulin dependent, depression, and debility. Medicare Certification: I certify that Post Hospital care home care is medically necessary on a continuing basis for any of the conditions for which she/he is receiving care during hospitalization. Notify PCP of admission and forward orders to primary provider for signature. Weight on admission and weekly. Call PCP immediately if weight increases by 10 pounds or if patient develops dyspnea, chest pain/tightness or edema. House Bowel Program: yes; If no BM after 2 days, nurse may give M.O.M. 30ml PO PRN and /or ducolax Supp 1 [place] and /or ROBERTO CARLOS 250mg P.O., and/or senna 1-2 tabs PO. On day 3 nurse may give repeat above order until residents constipation is resolved. Immunizations: Annual Influenza Vaccine: yes. (between Apr 22 and November 19. ) Unless allergy or already given Two-Step PPD: yes; per [facility] [phone] or appropriate documentation of approved exceptions Treatments & Other Orders: PT/OT speech. Treatment for UTI was completed on this hospital stay. Start Eliquis at day 10 post op (03/17/18). Oxygen Orders: 1-2L via nasal cannula to keep oxygen greater than 90%, PRN. Lab Tests or X-Rays Orders: BMP, CBC in one week. Orthopedic Orders: Orthopedic surgeon on or around 03/15/18 for a wound check and staple removal. Leave current dressing She agrees to seek f/u care with her personal orthopedic surgeon when she gets back home to [place] following the appointment with our local ortho group ~03/15. Medications: PLEASE REFER TO THE DISCHARGE MEDICATION LIST. Insulin Orders? no, resume oral DM medication, see list. Diagnosis: Diabetes; Initiate hypo and hyperglycemia protocols for BG <70 and BG >375. May check BG prn for signs/symptoms of dysglycemia. Allergies and Adverse Reactions: Allergies Allergy/AdvReac Type Severity Reaction Status Date / Time ciprofloxacin HCl * Allergy Hives Verified 03/05/18 02:07 [From Cipro] - Medications New Prescriptions: Ketorolac [Toradol] 10 mg PO Q6HR PRN #20 tablet PRN Reason: Pain HYDROcod/ACETAM 5/325 [[place] 5/325] 1 tab PO BID PRN #20 tablet PRN Reason: Pain Saccharomyces Boulardii [Florastor] 250 mg PO BID #20 capsule Temazepam 7.5 mg PO DAILY PM PRN #30 capsule PRN Reason: Insomnia - Diet Type: Geriatric Texture: Regular Liquids: Thin May have monthly special meal: Yes - Therapies | Activity Therapy: Evaluation | Treat if indicated: Speech, PT, OT Rehabilitation Potential: Maximize functional status, Maintain present ADL Functional Activity: Activity as Tolerated Weight Bearing: Full Weight Assistance Devices: Walker"
--- NOTE | 2018-03-10 12:22 | DISCHARGE SUMMARY ---
Discharge Summary Admit Date: 03/04/18 Discharge Date: 03/10/18 Discharging Provider: Madelyn Hill Primary Care Provider: Dr. Daniel Code Status: Attempt Resuscitation Condition at Discharge: Good Discharge Disposition: 03 SNF DC/Xfer Discharge Facility Name: [facility] - DIAGNOSES Admission Diagnoses: Fracture of unspecified part of neck of left femur, initial encounter for closed fracture (S72.002A) Encounter for preprocedural cardiovascular examination (Z01.810) Atherosclerotic heart disease of [place] coronary artery without angina pectoris (I25.10) Unspecified sequelae of cerebral infarction (I69.30) Atrial fibrillation with controlled ventricular rate (I48.91) Diabetes mellitus type 2, controlled (E11.9) Discharge Diagnoses with Status of Each Condition: Closed right hip fracture (S72.001A) new on this admission, now post op. Osteoarthritis (M19.90) chronic, started on Vitamin D. Atrial fibrillation with controlled ventricular rate (I48.91) chronic, stable. UTI (urinary tract infection) (N39.0) acute, has received full treatment. Diabetes mellitus type 2, controlled (E11.9) chronic, stable. Weakness of muscle of left side of face due to and not concurrent with cerebrovascular accident (CVA) (I69.392) chronic, stable. Depression (F32.9) chronic, stable. - HPI History of Present Illness: Gato Patel is a 63-year old female with a past medical history of a CVA with residual L sided weakness, gait instability, and bowel/bladder incontinence , atrial fibrillation on rivaroxaban, CAD s/p stent placement, DM type 2-on oral meds, and depression. She presented with a subcapital R hip fracture sustained after a ground level fall. She was ambulating with her walker, tripped , fell backwards onto her R hip, and was unable to return to standing or bear weight on her RLE. She denies any dizziness or syncope leading up to the fall or loss of consciousness. Her sister, who she has been staying with, assisted her off of the floor and pt was diagnosed radiographically upon presentation to the ED. Prior to this event, Ms. Patel was in her usual state of health which was been complicated by the residual deficits from her CVA which have left her unable to reside alone (mostly due to her gait instability, as she reports that she maintains independence in her ADLs). For the past month she has been vacationing in [place] and staying with her sister while her is out of the country visiting family. She does endorse that she had a previous fall in October of this year which was preceded by a syncopal episode where she fell and hit her head, resulting in a nonoperative foot fracture and "blood spots on her brain", which required a 3 day hospitalization. She also reports that she had a coronary stent placed approximately 2 months ago as the result of an abnormal stress test, she is unsure of the details of this procedure, but was started on clopidogrel at that time. She also states she had either a Heart Link or Reveal Loop put in as part of her atrial fib work up as well. On ROS prior to surgery: she denies chest pain, BARNETT, SOB at rest. There is no hx of CHF or valvular heart disease She has no palpitations with her positive hx of afib. There is no cough, wheezing, chest congestion. She did have a coronary stent 2 months ago but her memory seems impaired from her stroke. There is no hx of CKD. - CONSULTS | PROCEDURES Consultations: Ortho surgery - HOSPITAL COURSE Hospital Course: The following diagnoses were prevalent during this hospital stay: (1) Hip fracture, right The patient suffered a subcapital R hip fracture sustained after a mechanical ground level fall prior to presentation to the ED. She was ambulating with her walker, tripped, fell backwards onto her R hip, and was unable to return to standing or bear weight on her RLE. She denied any dizziness or syncope leading up to the fall or loss of consciousness. Her sister, who she has been staying with, assisted her off of the floor and imaging confirmed a right femur fracture. The patient did not have surgery immediately, instead waited for 48 hours for her Xarelto to wear off. She underwent surgical repair on 03/[address] Boudreaux. The patient has been doing well post operatively with physical therapy and she was watched for signs of bleeding. (2) Atrial fibrillation The patient has a long history of atrial fibrillation and has had a recent CVA leaving her with left sided residual. She was previously prescribed Xorelto at home, which has been discontinued. She was on Lovenox 40mg SQ daily that is changed to a daily ASA full dose at the SNF. Then on 03/17, she will be 10 days post op and will be restarted on Eliquis. (3) Depression The patient has a history of major depressive disorder and has a flat affect much of the time. She was previously on Lexapro, but requested a reduction in her medications, so this was weaned off and now stopped. She denies suicidal ideation. The patient was continu to monitor for worsening mood and mental status. (4) Diabetes type 2, controlled The patient is prescribed Jardiance at home, that was on hold as per hospital protocol while in patient. She was started on Lantus, that is now discontinued for hypoglycemia in the AM. A HgA1C was 8.6% at the time of admission. (5) History of stroke with residual deficit The patient has very mild left sided neglect, this can be noticed while she is ambulating and during a bilateral hand analysis mgr as the left is slightly more weak. She has since had a left foot drop and is prescribed a brace that is uncomfortable for her to wear. The stroke was likely a result of her chronic atrial fib. She was previously on Xorelto, but will be started on Eliquis on day 10 post op as per conversation with ortho surgery. The patient was placed on fall precautions and plan to re-start chronic blood thinner on day 10 post op. (6) Osteoarthritis The patient has a new fracture and a history of osteoarthritis. She requests to take Vitamin D and this was prescribed prior to discharge. (7) UTI (urinary tract infection) A urine sample was obtained in the ED, which showed a UTI. Since her CVA, she has been incontinent of urine, so this may be the likely culprit. Preliminary results show e. coli, with final sensitivities to Augmentin. She will be treated for at least 7 days. She will not be sent to the SNF on any antibiotics , as she has finished her course. Augmentin was given based on culture results that was completed and discontinued upon discharge. Disposition: The patient was in stable condition at the time of discharge and had several medically cleared days prior to this, but were told by SNF, prior auth was the hold up. The patient was not dependent on oxygen, was finished with her course of antibiotics, and was progressing well with physical therapy and nursing staff after her right hip repair. - ALLERGIES Allergies/Adverse Reactions: Allergies Allergy/AdvReac Type Severity Reaction Status Date / Time ciprofloxacin HCl * Allergy Hives Ver[facility] 03/05[facility]18 02:07 [facility] - MEDICATIONS Home Medications: Ambulatory Orders Medication Instructions Recorded Confirmed HYDROcod/ACETAM 5/325 [[place] 5/325] 1 tab PO BID PRN #20 tablet 03/10/18 Ketorolac [Toradol] 10 mg PO Q6HR PRN #20 tablet 03/10/18 Saccharomyces Boulardii [Florastor] 250 mg PO BID #20 capsule 03/10/18 Senna [Senokot] 8.6 - 17.2 mg PO DAILY #30 tablet 03/10/18 Amiodarone [Pacerone] 200 mg PO DAILY #30 03/13/18 03/05/18 Clopidogrel Bisulfate [Clopidogrel] 75 mg PO DAILY #30 03/13/18 03/05/18 Diltiazem HCl [Diltiazem 24Hr ER] 120 mg PO DAILY #30 03/13/18 03/05/18 Empagliflozin [Jardiance] 25 mg PO DAILY #30 03/13/18 03/05/18 Evolocumab [Repatha Sureclick] 140 mg SUBQ Q14D #30 03/13/18 03/05/18 Nebivolol HCl [Bystolic] 10 mg PO BID #30 03/13/18 03/05/18 Pramipexole Di-HCl [Mirapex ER] 0.75 mg PO QPM PRN #30 03/13/18 03/05/18 Temazepam 7.5 mg PO DAILY PM PRN #30 capsule 03/13/18 - PHYSICAL EXAM AT DISCHARGE General Appearance: positive: No acute distress, Alert Eyes Bilateral: positive: Normal inspection, PERRL ENT: positive: ENT inspection nml, Pharynx nml, No signs of dehydration Neck: positive: Nml inspection, Thyroid nml, No JVD, Trachea midline Respiratory: positive: Chest non-tender, No respiratory distress, Breath sounds nml Cardiovascular: positive: No gallop, Irregularly irregular, Systolic murmur, Decreased pulse(s) Peripheral Pulses: positive: 2+ Abdomen: positive: Non-tender, Nml bowel sounds Back: positive: Nml inspection Skin: positive: No rash, Warm, Dry Extremities: positive: Non-tender, No pedal edema, Joint swelling (mild right hip swelling without redness) Neurologic/Psychiatric: positive: Oriented x3, CN's nml (2-12), Motor nml, Sensation nml, Weakness, Depressed mood/affect Reflexes: Bicep (R): 3+, Bicep (L): 2+ - LABS Result Diagrams: 03/14/18 05:29 03/14/18 05:29 - DIAGNOSTIC IMAGING Diagnostic Imaging Results: Final report reviewed Diagnostic Imaging Results Comments: EXAM: RIGHT HIP AND PELVIS RADIOGRAPHY EXAM DATE: 03/04/2018 11:21 PM. IMPRESSION: 1. Subcapital right hip fracture. EXAM: Chest 1 View X-Ray DATE: 03/06/2018 11:15 AM IMPRESSION: No acute cardiopulmonary abnormality. EXAM: Pelvis 1 View DATE: 03/07/2018 2:55 PM IMPRESSION: Status post right total hip arthroplasty, no hardware failure. ECHOCARDIOGRAM 03/07/18 Final read by Porfirio Ray MD 1. Mild concentric LVH with normal function, EF 70%. The LA is mildly dilated. 2. Sclerotic aortic and mitral valves with normal valve function throughout. 3. Normal RV size and function. Normal pulmonary pressures. - FOLLOW UP Follow Up: Disposition: 03 [facility] DC/Xfer Condition: Good SNF Transition Orders: Admit to: Care Age under the care of Dr. Daniel Discharge Diagnosis: Closed, displaced RIGHT hip femoral neck fracture, pathologic secondary to osteoporosis, post op state, UTI, CVA with left sided weakness, chronic atrial fibrillation, CAD with coronary stents, DM type 2-non- insulin dependent, depression, and debility. - TIME SPENT Time Spent in Discharge (Minutes): 55
[2018-03-10] MEDS: HYDROcod/ACETAM 5/325 MG TABLET PO PRN ×2 (12:49→19:02)
--- NOTE | 2018-03-10 19:03 | PROVIDER PROGRESS NOTE ---
Subjective - Prog Note Date Prog Note Date: 03/10/18 Prog Note Time: 10:00 - Subjective Pt reports feeling: Improved Subjective: Gato has no complains and denies any new symptoms. She states that she is looking forward to SNF rehab. Objective - Vital Signs/Intake & Output Reviewed Vital Signs: Yes Vital Signs: Vital Signs x48h Temp Pulse Resp BP Pulse Ox 03/10/18 15:32 37.3 C 74 18 112/54 L 94 Intake & Output: Intake & Output 03/07/18 03/08/18 03/09/18 03/10/18 23:59 23:59 23:59 23:59 Intake Total 2222.50 3180.00 990 920 Output Total 2550 2000 Balance -327.50 1180.00 990 920 - Objective General Appearance: positive: No acute distress, Alert Eyes Bilateral: positive: Normal inspection, PERRL ENT: positive: ENT inspection nml, Pharynx nml, No signs of dehydration Neck: positive: Nml inspection, No JVD Respiratory: positive: Chest non-tender, No respiratory distress, Breath sounds nml Cardiovascular: positive: No gallop, Irregularly irregular Abdomen: positive: Non-tender, Nml bowel sounds Back: positive: Nml inspection Skin: positive: No rash, Warm, Dry Extremities: positive: Non-tender, Pedal edema, Joint swelling (right hip, dressing is CDI without erythema) Neurologic/Psychiatric: positive: Oriented x3, CN's nml (2-12), Motor nml, Depressed mood/affect Reflexes: Bicep (R): 3+, Bicep (L): 2+ - Lab Results Fish Bones: 03/13/18 05:06 03/13/18 05:06 Other Labs: Lab Results x24hrs 03/10/18 03/10/18 03/10/18 Range/Units 16:34 11:42 07:38 POC Whole Bld Glucose 148 H 117 H 78 (70 - 100) mg/dL 03/09/18 Range/Units 20:32 POC Whole Bld Glucose 131 H (70 - 100) mg/dL - Diagnostic Imaging Diagnostic Imaging Results: positive: Final report reviewed ABX Reporting Has patient been on IV antibiotics over the past 48 hours?: No Assessment/Plan - Problem List (1) Atrial fibrillation Impression: The patient has a long history of atrial fibrillation and has had a recent CVA leaving her with left sided residual. She was previously prescribed Xorelto at home, which has been discontinued. She will be on Lovenox 40mg SQ daily, then plan to restart Eliquis as this will be some what less likely to cause a bleed from her surgical site. Plan: Continue to monitor on telemetry, obtain an echo, and watch for changes in neuro status. Qualifiers: Atrial fibrillation type: chronic Qualified Code(s): I48.2 - Chronic atrial fibrillation (2) Hip fracture, right Impression: The patient suffered a subcapital R hip fracture sustained after a mechanical ground level fall prior to presentation to the ED. She was ambulating with her walker, tripped, fell backwards onto her R hip, and was unable to return to standing or bear weight on her RLE. She denied any dizziness or syncope leading up to the fall or loss of consciousness. Her sister, who she has been staying with, assisted her off of the floor and imaging confirmed a right femur fracture. The patient did not have surgery immediately, instead waited for 48 hours for her Xarelto to wear off. She underwent surgical repair on 03/[address] Boudreaux. Plan: Physical therapy and watch for signs of bleeding. Qualifiers: Encounter type: subsequent encounter Fracture type: closed Fracture healing: with routine healing Qualified Code(s): S72.001D - Fracture of unspecified part of neck of right femur, subsequent encounter for closed fracture with routine healing (3) UTI (urinary tract infection) Impression: A urine sample was obtained in the ED, which showed a UTI. Since her CVA, she has been incontinent of urine, so this may be the likely culprit. Preliminary results show e. coli, with final sensitivities to Augmentin. Plan: Continue Augmentin based on culture results. Monitor urine out put. Qualifiers: Urinary tract infection type: acute cystitis Hematuria presence: without hematuria Qualified Code(s): N30.00 - Acute cystitis without hematuria (4) Diabetes type 2, controlled Impression: The patient is prescribed Jardiance at home, that was on hold as per hospital protocol while in patient. She was started on Lantus 10 units SQ today as her early AM sugars have been greater than 200. A HgA1C was 8.6% at the time of admission. Plan: Continue to monitor blood glucose and give Lantus Q 24 hours. Qualifiers: Diabetes mellitus termite control technician insulin use: without termite control technician use Diabetes mellitus complication status: without complication Qualified Code(s): E11.9 - Type 2 diabetes mellitus without complications (5) History of stroke with residual deficit Impression: Upon exam the patient has very mild left sided neglect, this can be noticed while she is ambulating and during a bilateral hand machine molder squeeze as the left is slightly more weak. This was likely a result of her chronic atrial fib. She was previously on Xorelto, but will be started on Eliquis on day 10 post op as per conversation with ortho surgery. Plan: Fall precautions and plan to re-start chronic blood thinner on day 10 post op. (6) Post-operative state Impression: the patient is having an uneventful post op course. She continues with treatment for her UTI. Her sister, Jessica is present for much of the day and spends the night at her bedside. Plan: continue PT and frequent nursing cares.
[2018-03-11] MEDS: HYDROcod/ACETAM 5/325 MG TABLET PO PRN ×3 (00:17→18:48)
[2018-03-11] MEDS: SODIUM CHLORIDE FLUSH 0.9% 10 ML SYRINGE IVP SCH ×3 (01:18→17:11)
[2018-03-11] MEDS: ACETAMINOPHEN 325 MG TABLET PO PRN (03:02)
[2018-03-11] MEDS: KETOROLAC 10 MG TABLET PO PRN ×3 (06:24→22:00)
[2018-03-11] MEDS: INSULIN ASPART 300 UNIT/3 ML PEN SUBQ SCH ×4 (08:39→20:48)
[2018-03-11] MEDS: AMIODARONE 200 MG TABLET PO SCH (08:41)
[2018-03-11] MEDS: ESCITALOPRAM 10 MG TABLET PO SCH (08:41)
[2018-03-11] MEDS: diltiaZEM CD 120 MG CAPSULE PO SCH (08:41)
[2018-03-11] MEDS: CLOPIDOGREL 75 MG TABLET PO SCH (08:41)
[2018-03-11] MEDS: ENOXAPARIN 40 MG/0.4 ML SYRINGE SUBQ SCH (08:41)
[2018-03-11] MEDS: POLYETHYLENE GLYCOL 3350 17 GM PACKET PO SCH (08:46)
[2018-03-11] MEDS: AMOX/CLAV 875 MG/125 MG TABLET PO SCH ×2 (08:46→20:46)
[2018-03-11] MEDS: DOCUSATE SODIUM 250 MG CAPSULE PO SCH (08:46)
[2018-03-11] MEDS: SENNA 8.6 MG TABLET PO SCH (08:47)
[2018-03-11] MEDS: INSULIN GLARGINE 300 UNIT/3 ML PEN SUBQ SCH (08:48)
[2018-03-11] MEDS: MIN OIL/DIMETHICON/COCONUT OIL 92 GM TUBE TOP PRN (12:03)
[2018-03-11] MEDS: ZINC OXIDE 20% OINT 28.35 GM TUBE TOP SCH ×2 (12:03→20:50)
[2018-03-11] MEDS: NYSTATIN CREAM 15 GM TUBE TOP SCH ×2 (12:03→20:49)
--- NOTE | 2018-03-11 14:16 | PROVIDER PROGRESS NOTE ---
Subjective - Prog Note Date Prog Note Date: 03/11/18 Prog Note Time: 12:00 - Subjective Pt reports feeling: Improved Subjective: Today, Gato thinks she should try to go home, but after another PT session, it was decided to proceed with SNF for rehab. When she can go home, the house is all set up with the proper equipment with no stairs. She denies SOB, chest pain , N/V or a new cough. Current Medications - Current Medications Current Medications: Active Medications Acetaminophen (Tylenol) 650 mg PO Q4HR PRN PRN Reason: Pain or Fever > 38C (100.4F) Last Admin: 03/11/18 03:02 Dose: 650 mg Hydrocodone Bitart/Acetaminophen ([place] 5/325) 1 tab PO Q4H PRN PRN Reason: PAIN Last Admin: 03/11/18 12:00 Dose: 1 tab Amiodarone HCl (Pacerone) 200 mg PO DAILY [facility] Last Admin: 03/11/18 08:41 Dose: 200 mg Amoxicillin/Clavulanate Potassium (Augmentin 875/125) 1 tab PO BID [facility] Last Admin: 03/11/18 08:46 Dose: 1 tab Clopidogrel Bisulfate (Plavix) 75 mg PO DAILY [facility] Last Admin: 03/11/18 08:41 Dose: 75 mg Diazepam (Valium) 5 mg PO TID PRN PRN Reason: Anxiety Last Admin: 03/10/18 22:45 Dose: 5 mg Diltiazem HCl (Cardizem Cd) 120 mg PO DAILY [facility] Last Admin: 03/11/18 08:41 Dose: 120 mg Docusate Sodium (Colace 250mg Capsule) 250 - 500 mg PO DAILY [facility] Last Admin: 03/11/18 08:46 Dose: Not Given Enoxaparin Sodium (Lovenox) 40 mg SUBQ DAILY [facility] Last Admin: 03/11/18 08:41 Dose: 40 mg Escitalopram Oxalate (Lexapro) 10 mg PO DAILY [facility] Last Admin: 03/11/18 08:41 Dose: 10 mg Hydromorphone HCl (Dilaudid Inj Syringe) 0.5 mg IVP Q2H PRN PRN Reason: Pain 8 to 10 Last Admin: 03/09/18 13:11 Dose: 0.5 mg Insulin Aspart (Novolog) 1 - 9 unit SUBQ 0800,1200,1700,2100 [facility] PRN Reason: Protocol Last Admin: 03/11/18 12:01 Dose: Not Given Insulin Glargine (Lantus Solostar) 5 unit SUBQ DAILY [facility] Last Admin: 03/11/18 08:48 Dose: 5 unit Ketorolac Tromethamine (Toradol) 10 mg PO Q6HR PRN PRN Reason: PAIN Stop: 03/14/18 11:50 Last Admin: 03/11/18 13:19 Dose: 10 mg Mineral Oil (Cavilon) 1 applic TOP PRN PRN PRN Reason: Skin Care Last Admin: 03/11/18 12:03 Dose: 1 applic Multi-Ingredient Ointment (Zinc Oxide) 1 applic TOP BID [facility] Last Admin: 03/11/18 12:03 Dose: 1 applic Nystatin (Mycostatin Cream) 1 applic TOP BID [facility] Last Admin: 03/11/18 12:03 Dose: 1 applic Ondansetron HCl (Zofran Inj) 4 mg IVP Q6HR PRN PRN Reason: Nausea / Vomiting (Nebivolol Hcl [ (Bystolic] 10 Mg) Tab) 1 each PO BID [facility] Last Admin: 03/11/18 08:48 Dose: 1 each (Pramipexole Di-Hcl [Mirapex Er] 0.75 Mg ) Tab 1 each PO QPM [facility] Last Admin: 03/10/18 20:55 Dose: Not Given Polyethylene Glycol (Miralax) 17 gm PO DAILY [facility] Last Admin: 03/11/18 08:46 Dose: Not Given Prochlorperazine Edisylate (Compazine Inj) 10 mg IVP Q6HR PRN PRN Reason: Nausea / Vomiting Senna (Senokot) 8.6 - 17.2 mg PO DAILY [facility] Last Admin: 03/11/18 08:47 Dose: Not Given Sodium Chloride (Normal Saline Flush 0.9%) 10 ml IVP PRN PRN PRN Reason: NEEDED PER PROVIDER ORDERS Last Admin: 03/08/18 06:11 Dose: 10 ml Sodium Chloride (Normal Saline Flush 0.9%) 10 ml IVP 0100,0900,1700 [facility] Last Admin: 03/11/18 08:47 Dose: Not Given Temazepam (Restoril) 7.5 mg PO QPM PRN PRN Reason: Insomnia Zolpidem [Ambien] 10 mg PO QPM 03/10/15 Amiodarone [Pacerone] 200 mg PO DAILY 03/04/18 Clopidogrel Bisulfate [Clopidogrel] 75 mg PO DAILY 03/04/18 Diltiazem HCl [Diltiazem 24Hr ER] 120 mg PO DAILY 03/04/18 Nebivolol HCl [Bystolic] 10 mg PO BID 03/04/18 Empagliflozin [Jardiance] 25 mg PO DAILY 03/05/18 Evolocumab [Repatha Sureclick] 140 mg SUBQ Q14D 03/05/18 Pramipexole Di-HCl [Mirapex ER] 0.75 mg PO QPM PRN 03/05/18 Objective - Vital Signs/Intake & Output Reviewed Vital Signs: Yes Vital Signs: Vital Signs x48h Temp Pulse Resp BP Pulse Ox 03/11/18 08:19 37.1 C 72 18 107/57 L 93 Intake & Output: Intake & Output 03/08/18 03/09/18 03/10/18 03/11/18 23:59 23:59 23:59 23:59 Intake Total 3180.00 990 1320 380 Output Total 2000 200 Balance 1180.00 990 1320 180 - Objective General Appearance: positive: No acute distress, Alert Eyes: OU Conjunctivae pale ENT: positive: ENT inspection nml, Pharynx nml, No signs of dehydration Neck: positive: Nml inspection, Thyroid nml, No JVD Respiratory: positive: Chest non-tender, No respiratory distress, Breath sounds nml Cardiovascular: positive: No gallop, Irregularly irregular, Systolic murmur, Decreased pulse(s) Peripheral Pulses: 2+ Radial (R), 2+ Radial (L) Abdomen: positive: Non-tender, Nml bowel sounds, Other (rounded, soft) Back: positive: Nml inspection Skin: positive: No rash, Warm, Dry Extremities: positive: Nml appearance, Pedal edema (trace BLE), Joint swelling ( right hip, left sided weakness-baseline) Neurologic/Psychiatric: positive: Oriented x3, CN's nml (2-12), Motor nml, Sensation nml, Weakness, Depressed mood/affect Reflexes: Bicep (R): 3+, Bicep (L): 2+ - Lab Results Fish Bones: 03/13/18 05:06 07/23/18 05:06 Other Labs: Lab Results x24hrs 03/11/18 03/11/18 03/10/18 Range/Units 11:59 07:55 20:37 POC Whole Bld Glucose 131 H 117 H 257 H (70 - 100) mg/dL 03/10/18 Range/Units 16:34 POC Whole Bld Glucose 148 H (70 - 100) mg/dL - Diagnostic Imaging Diagnostic Imaging Results: positive: Final report reviewed ABX Reporting Has patient been on IV antibiotics over the past 48 hours?: No Assessment/Plan - Problem List (1) Hip fracture, right Impression: The patient presented to the ED on 03/05/18, but had been on Xarelto, so immediate surgery was postponed for 48 hours. She had suffered a subcapital R hip fracture sustained after a mechanical ground level fall. She was ambulating with her walker, tripped, fell backwards onto her R hip, and was unable to return to standing or bear weight on her RLE. She denied any dizziness or syncope leading up to the fall or loss of consciousness. Her sister, who she has been staying with, assisted her off of the floor and imaging confirmed a right femur fracture. She underwent surgical repair on with Dr. Boudreaux. Plan: Physical therapy and watch for signs of bleeding. Qualifiers: Encounter type: subsequent encounter Fracture type: closed Fracture healing: with routine healing Qualified Code(s): S72.001D - Fracture of unspecified part of neck of right femur, subsequent encounter for closed fracture with routine healing (2) Atrial fibrillation Impression: The patient has a long history of atrial fibrillation and has had a recent CVA leaving her with left sided residual. She was previously prescribed Xorelto at home, which has been discontinued. She will be on Lovenox 40mg SQ daily, then plan to restart Eliquis as this will be some what less likely to cause a bleed from her surgical site. Plan: Continue to monitor on telemetry, obtain an echo, and watch for changes in neuro status. Qualifiers: Atrial fibrillation type: chronic Qualified Code(s): I48.2 - Chronic atrial fibrillation (3) UTI (urinary tract infection) Impression: A urine sample was obtained in the ED, which showed a UTI. Since her CVA, she has been incontinent of urine, so this may be the likely culprit. Preliminary results show e. coli, with final sensitivities to Augmentin. She will be treated for at least 7 days. Plan: Continue Augmentin based on culture results. Monitor urine out put. Qualifiers: Urinary tract infection type: acute cystitis Hematuria presence: without hematuria Qualified Code(s): N30.00 - Acute cystitis without hematuria (4) Diabetes type 2, controlled Impression: The patient is prescribed Jardiance at home, that was on hold as per hospital protocol while in patient. She was started on Lantus 10 units SQ, but today reduced to 5 units, since having lower early AM sugars. A HgA1C was 8.6% at the time of admission. Plan: Continue to monitor blood glucose and give Lantus Q 24 hours. Qualifiers: Diabetes mellitus senior care insulin use: without senior care use Diabetes mellitus complication status: without complication Qualified Code(s): E11.9 - Type 2 diabetes mellitus without complications (5) History of stroke with residual deficit Impression: Upon exam the patient has very mild left sided neglect, this can be noticed while she is ambulating and during a bilateral hand alarm field technician as the left is slightly more weak. She has since had a left foot drop and is prescribed a brace that is uncomfortable for her to wear. The stroke was likely a result of her chronic atrial fib. She was previously on Xorelto, but will be started on Eliquis on day 10 post op as per conversation with ortho surgery. Plan: Fall precautions and plan to re-start chronic blood thinner on day 10 post op. (6) Post-operative state Impression: The patient is having an uneventful post op course. She continues with treatment for her UTI. Her sister, Jessica and/or the patient's is present for much of the day and spends the night at her bedside. Plan: continue PT and frequent nursing cares.
[2018-03-11] MEDS: TEMAZEPAM 7.5 MG CAPSULE PO PRN (22:00)
[2018-03-12] MEDS: SODIUM CHLORIDE FLUSH 0.9% 10 ML SYRINGE IVP SCH ×3 (02:45→16:41)
[2018-03-12 05:13] LABS: BASOPHILS # (AUTO) 0.1 10^3/uL (0.0-0.1); BASOPHILS % (AUTO) 1.5 %; EOSINOPHILS # (AUTO) 0.2 10^3/uL (0.0-0.7); EOSINOPHILS % (AUTO) 3.3 %; LYMPHOCYTES # (AUTO) 1.9 10^3/uL (1.5-3.5); LYMPHOCYTES % (AUTO) 31.2 %; MEAN CORPUSCULAR HEMOGLOBIN 31.9 pg (27.0-31.0); MEAN CORPUSCULAR HGB CONC 33.9 g/dL (32.0-36.0); MEAN CORPUSCULAR VOLUME 94.1 fL (81.0-99.0); MEAN PLATELET VOLUME 7.9 fL (7.9-10.8); MONOCYTES # (AUTO) 0.6 10^3/uL (0.0-1.0); MONOCYTES % (AUTO) 9.3 %; NEUTROPHILS # (AUTO) 3.4 10^3/uL (1.5-6.6); NEUTROPHILS % (AUTO) 54.7 %; PLT - PLATELET COUNT 300 10^3/uL (130-450); RED BLOOD COUNT 3.15 10^6/uL (4.20-5.40); RED CELL DISTRIBUTION WIDTH 13.4 % (12.0-15.0); WHITE BLOOD COUNT 6.2 x10^3/uL (4.8-10.8)
[2018-03-12 05:32] LABS: ALBUMIN 2.6 g/dL (3.2-5.5); ALBUMIN/GLOBULIN RATIO 0.8 (1.0-2.2); BILIRUBIN,TOTAL 0.6 mg/dL (0.2-1.0); CALCIUM 8.3 mg/dL (8.5-10.3); CREATININE 0.7 mg/dL (0.4-1.0); MAGNESIUM 2.1 mg/dL (1.7-2.8); TOTAL PROTEIN 5.9 g/dL (6.7-8.2)
[2018-03-12] MEDS: INSULIN ASPART 300 UNIT/3 ML PEN SUBQ SCH ×4 (08:29→21:01)
[2018-03-12] MEDS: ESCITALOPRAM 10 MG TABLET PO SCH (08:30)
[2018-03-12] MEDS: CLOPIDOGREL 75 MG TABLET PO SCH (08:31)
[2018-03-12] MEDS: AMIODARONE 200 MG TABLET PO SCH (08:31)
[2018-03-12] MEDS: KETOROLAC 10 MG TABLET PO PRN ×2 (08:31→18:35)
[2018-03-12] MEDS: AMOX/CLAV 875 MG/125 MG TABLET PO SCH ×2 (08:31→21:01)
[2018-03-12] MEDS: diltiaZEM CD 120 MG CAPSULE PO SCH (08:31)
[2018-03-12] MEDS: ENOXAPARIN 40 MG/0.4 ML SYRINGE SUBQ SCH (08:32)
[2018-03-12] MEDS: POLYETHYLENE GLYCOL 3350 17 GM PACKET PO SCH (08:41)
[2018-03-12] MEDS: DOCUSATE SODIUM 250 MG CAPSULE PO SCH (08:41)
[2018-03-12] MEDS: SENNA 8.6 MG TABLET PO SCH (08:42)
[2018-03-12] MEDS: INSULIN GLARGINE 300 UNIT/3 ML PEN SUBQ SCH (08:45)
[2018-03-12] MEDS: ZINC OXIDE 20% OINT 28.35 GM TUBE TOP SCH ×2 (11:45→21:01)
[2018-03-12] MEDS: NYSTATIN CREAM 15 GM TUBE TOP SCH ×2 (11:46→21:10)
[2018-03-12] MEDS: MIN OIL/DIMETHICON/COCONUT OIL 92 GM TUBE TOP PRN (12:46)
[2018-03-12] MEDS: HYDROcod/ACETAM 5/325 MG TABLET PO PRN ×2 (13:44→21:14)
[2018-03-12] MEDS: TEMAZEPAM 7.5 MG CAPSULE PO PRN (21:01)
[2018-03-13] MEDS: SODIUM CHLORIDE FLUSH 0.9% 10 ML SYRINGE IVP SCH ×4 (04:58→23:56)
[2018-03-13 05:52] LABS: BASOPHILS % (AUTO) 0.6 %; EOSINOPHILS # (AUTO) 0.3 10^3/uL (0.0-0.7); EOSINOPHILS % (AUTO) 4.1 %; HGB - HEMOGLOBIN 10.8 g/dL (12.0-16.0); LYMPHOCYTES # (AUTO) 2.1 10^3/uL (1.5-3.5); LYMPHOCYTES % (AUTO) 32.6 %; MEAN CORPUSCULAR HGB CONC 33.2 g/dL (32.0-36.0); MEAN CORPUSCULAR VOLUME 99.4 fL (81.0-99.0); MEAN PLATELET VOLUME 7.9 fL (7.9-10.8); MONOCYTES # (AUTO) 0.6 10^3/uL (0.0-1.0); MONOCYTES % (AUTO) 8.9 %; NEUTROPHILS # (AUTO) 3.5 10^3/uL (1.5-6.6); NEUTROPHILS % (AUTO) 53.8 %; PLT - PLATELET COUNT 354 10^3/uL (130-450); RED BLOOD COUNT 3.26 10^6/uL (4.20-5.40); RED CELL DISTRIBUTION WIDTH 13.5 % (12.0-15.0); WHITE BLOOD COUNT 6.5 x10^3/uL (4.8-10.8)
[2018-03-13 05:59] LABS: ALBUMIN 2.9 g/dL (3.2-5.5); ALBUMIN/GLOBULIN RATIO 0.9 (1.0-2.2); BILIRUBIN,TOTAL 0.5 mg/dL (0.2-1.0); CALCIUM 8.5 mg/dL (8.5-10.3); CREATININE 0.6 mg/dL (0.4-1.0); MAGNESIUM 2.2 mg/dL (1.7-2.8); TOTAL PROTEIN 6.2 g/dL (6.7-8.2)
[2018-03-13] MEDS: INSULIN ASPART 300 UNIT/3 ML PEN SUBQ SCH ×4 (08:33→21:21)
[2018-03-13] MEDS: POLYETHYLENE GLYCOL 3350 17 GM PACKET PO SCH (08:33)
[2018-03-13] MEDS: DOCUSATE SODIUM 250 MG CAPSULE PO SCH (08:33)
[2018-03-13] MEDS: SENNA 8.6 MG TABLET PO SCH (08:34)
[2018-03-13] MEDS: ACETAMINOPHEN 325 MG TABLET PO PRN (08:40)
[2018-03-13] MEDS: AMOX/CLAV 875 MG/125 MG TABLET PO SCH ×2 (08:40→21:21)
[2018-03-13] MEDS: CLOPIDOGREL 75 MG TABLET PO SCH (08:40)
[2018-03-13] MEDS: diazePAM 5 MG TABLET PO PRN (08:40)
[2018-03-13] MEDS: ESCITALOPRAM 10 MG TABLET PO SCH (08:40)
[2018-03-13] MEDS: AMIODARONE 200 MG TABLET PO SCH (08:40)
[2018-03-13] MEDS: ZINC OXIDE 20% OINT 28.35 GM TUBE TOP SCH ×2 (08:41→21:24)
[2018-03-13] MEDS: NYSTATIN CREAM 15 GM TUBE TOP SCH ×2 (08:44→21:24)
[2018-03-13] MEDS: INSULIN GLARGINE 300 UNIT/3 ML PEN SUBQ SCH (08:46)
[2018-03-13] MEDS: diltiaZEM CD 120 MG CAPSULE PO SCH (08:46)
[2018-03-13] MEDS: ENOXAPARIN 40 MG/0.4 ML SYRINGE SUBQ SCH (08:49)
[2018-03-13] MEDS: HYDROcod/ACETAM 5/325 MG TABLET PO PRN ×2 (13:19→18:32)
[2018-03-13] MEDS: KETOROLAC 10 MG TABLET PO PRN (16:02)
[2018-03-13] MEDS: TEMAZEPAM 7.5 MG CAPSULE PO PRN (22:42)
--- NOTE | 2018-03-13 23:40 | PROVIDER PROGRESS NOTE ---
Subjective - Prog Note Date Prog Note Date: 03/13/18 Prog Note Time: 11:00 - Subjective Pt reports feeling: No change Subjective: Gato complains of sharp pains in her vaginal area. She denies any other new symptoms such as increased shortness of breath, nausea, vomiting, or a new cough. She states that she is sleeping well and her activity is improved. Current Medications - Current Medications Current Medications: Active Medications Acetaminophen (Tylenol) 650 mg PO Q4HR PRN PRN Reason: Pain or Fever > 38C (100.4F) Last Admin: 03/13/18 08:40 Dose: 650 mg Hydrocodone Bitart/Acetaminophen ([place] 5/325) 1 tab PO Q4H PRN PRN Reason: PAIN Last Admin: 03/13/18 18:32 Dose: 1 tab Amiodarone HCl (Pacerone) 200 mg PO DAILY [facility] Last Admin: 03/13/18 08:40 Dose: 200 mg Amoxicillin/Clavulanate Potassium (Augmentin 875/125) 1 tab PO BID [facility] Last Admin: 03/13/18 21:21 Dose: 1 tab Clopidogrel Bisulfate (Plavix) 75 mg PO DAILY [facility] Last Admin: 03/13/18 08:40 Dose: 75 mg Diazepam (Valium) 5 mg PO TID PRN PRN Reason: Anxiety Last Admin: 03/13/18 08:40 Dose: 5 mg Diltiazem HCl (Cardizem Cd) 120 mg PO DAILY [facility] Last Admin: 03/13/18 08:46 Dose: 120 mg Docusate Sodium (Colace 250mg Capsule) 250 - 500 mg PO DAILY [facility] Last Admin: 03/13/18 08:33 Dose: Not Given Enoxaparin Sodium (Lovenox) 40 mg SUBQ DAILY [facility] Last Admin: 03/13/18 08:49 Dose: 40 mg Escitalopram Oxalate (Lexapro) 10 mg PO DAILY [facility] Last Admin: 03/13/18 08:40 Dose: 10 mg Hydromorphone HCl (Dilaudid Inj Syringe) 0.5 mg IVP Q2H PRN PRN Reason: Pain 8 to 10 Last Admin: 03/09/18 13:11 Dose: 0.5 mg Insulin Aspart (Novolog) 1 - 9 unit SUBQ 0800,1200,1700,2100 [facility] PRN Reason: Protocol Last Admin: 03/13/18 21:21 Dose: 1 unit Insulin Glargine (Lantus Solostar) 5 unit SUBQ DAILY [facility] Last Admin: 03/13/18 08:46 Dose: 5 unit Ketorolac Tromethamine (Toradol) 10 mg PO Q6HR PRN PRN Reason: PAIN Stop: 03/14/18 11:50 Last Admin: 03/13/18 16:02 Dose: 10 mg Mineral Oil (Cavilon) 1 applic TOP PRN PRN PRN Reason: Skin Care Last Admin: 03/12/18 12:46 Dose: 1 applic Multi-Ingredient Ointment (Zinc Oxide) 1 applic TOP BID [facility] Last Admin: 03/13/18 21:24 Dose: 1 applic Nystatin (Mycostatin Cream) 1 applic TOP BID [facility] Last Admin: 03/13/18 21:24 Dose: 1 applic Ondansetron HCl (Zofran Inj) 4 mg IVP Q6HR PRN PRN Reason: Nausea / Vomiting (Nebivolol Hcl [ (Bystolic] 10 Mg) Tab) 1 each PO BID [facility] Last Admin: 03/13/18 21:23 Dose: 1 each (Pramipexole Di-Hcl [Mirapex Er] 0.75 Mg ) Tab 1 each PO QPM [facility] Last Admin: 03/13/18 21:23 Dose: Not Given Polyethylene Glycol (Miralax) 17 gm PO DAILY [facility] Last Admin: 03/13/18 08:33 Dose: Not Given Prochlorperazine Edisylate (Compazine Inj) 10 mg IVP Q6HR PRN PRN Reason: Nausea / Vomiting Senna (Senokot) 8.6 - 17.2 mg PO DAILY [facility] Last Admin: 03/13/18 08:34 Dose: Not Given Sodium Chloride (Normal Saline Flush 0.9%) 10 ml IVP PRN PRN PRN Reason: NEEDED PER PROVIDER ORDERS Last Admin: 03/08/18 06:11 Dose: 10 ml Sodium Chloride (Normal Saline Flush 0.9%) 10 ml IVP 0100,0900,1700 [facility] Last Admin: 03/13/18 17:32 Dose: Not Given Temazepam (Restoril) 7.5 mg PO QPM PRN PRN Reason: Insomnia Last Admin: 03/13/18 22:42 Dose: 7.5 mg New: Vitamin D3 2000 PO daily Objective - Vital Signs/Intake & Output Reviewed Vital Signs: Yes Vital Signs: Vital Signs x48h Temp Pulse Resp BP Pulse Ox 03/13/18 23:29 37.0 C 77 18 109/65 94 03/13/18 15:45 37.2 C 76 18 144/66 H 96 Intake & Output: Intake & Output 03/10/18 03/11/18 03/12/18 03/13/18 23:59 23:59 23:59 23:59 Intake Total 1320 800 760 800 Output Total 300 450 Balance 1320 500 760 350 - Objective General Appearance: positive: No acute distress, Alert Eyes Bilateral: positive: Normal inspection, PERRL ENT: positive: ENT inspection nml, Pharynx nml, No signs of dehydration Neck: positive: Nml inspection, Thyroid nml, No JVD Respiratory: positive: Chest non-tender, No respiratory distress, Breath sounds nml Cardiovascular: positive: No gallop, Irregularly irregular, Systolic murmur Peripheral Pulses: 1+ Radial (R), 1+ Radial (L) Abdomen: positive: Non-tender, Nml bowel sounds, Other (rounded, soft external inspection of labia due to complaints of vaginal pain, all findings normal and no excess discharge.) Back: positive: Nml inspection Skin: positive: Color nml, No rash, Warm, Dry Extremities: positive: Non-tender, Full ROM, Nml appearance, Pedal edema, Joint swelling (right hip) Neurologic/Psychiatric: positive: Oriented x3, CN's nml (2-12), Motor nml, Sensation nml, Depressed mood/affect Reflexes: Bicep (R): 3+, Bicep (L): 2+ - Lab Results Fish Bones: 03/13/18 05:06 03/13/18 05:06 Other Labs: Lab Results x24hrs 03/13/18 03/13/18 03/13/18 Range/Units 20:29 16:38 11:53 WBC (4.8-10.8) x10^3/uL RBC (4.20-5.40) 10^6/uL Hgb (12.0-16.0) g/dL Hct (37.0-47.0) % MCV (81.0-99.0) fL MCH (27.0-31.0) pg MCHC (32.0-36.0) g/dL RDW (12.0-15.0) % Plt Count (130-450) 10^3/uL MPV (7.9-10.8) fL Neut # (Auto) (1.5-6.6) 10^3/uL Lymph # (Auto) (1.5-3.5) 10^3/uL [place] # (Auto) (0.0-1.0) 10^3/uL Eos # (Auto) (0.0-0.7) 10^3/uL Baso # (Auto) (0.0-0.1) 10^3/uL Absolute Nucleated RBC x10^3/uL Nucleated RBC % /100WBC Sodium (135-145) mmol/L Potassium (3.5-5.0) mmol/L Chloride (101-111) mmol/L Carbon Dioxide (21-32) mmol/L Anion Gap (6-13) BUN (6-20) mg/dL Creatinine (0.4-1.0) mg/dL Estimated GFR (MDRD) (>89) Glucose (70-100) mg/dL POC Whole Bld Glucose 151 H 181 H 127 H (70 - 100) mg/dL Calcium (8.5-10.3) mg/dL Magnesium (1.7-2.8) mg/dL Total Bilirubin (0.2-1.0) mg/dL AST (10-42) IU/L ALT (10-60) IU/L Alkaline Phosphatase (42-121) IU/L B-Natriuretic Peptide (5-100) pg/mL Total Protein (6.7-8.2) g/dL Albumin (3.2-5.5) g/dL Globulin (2.1-4.2) g/dL Albumin/Globulin Ratio (1.0-2.2) 03/13/18 03/13/18 03/13/18 Range/Units 08:00 05:06 05:06 WBC (4.8-10.8) x10^3/uL RBC (4.20-5.40) 10^6/uL Hgb (12.0-16.0) g/dL Hct (37.0-47.0) % MCV (81.0-99.0) fL MCH (27.0-31.0) pg MCHC (32.0-36.0) g/dL RDW (12.0-15.0) % Plt Count (130-450) 10^3/uL MPV (7.9-10.8) fL Neut # (Auto) (1.5-6.6) 10^3/uL Lymph # (Auto) (1.5-3.5) 10^3/uL [place] # (Auto) (0.0-1.0) 10^3/uL Eos # (Auto) (0.0-0.7) 10^3/uL Baso # (Auto) (0.0-0.1) 10^3/uL Absolute Nucleated RBC x10^3/uL Nucleated RBC % /100WBC Sodium 139 (135-145) mmol/L Potassium 3.9 (3.5-5.0) mmol/L Chloride 101 (101-111) mmol/L Carbon Dioxide 28 (21-32) mmol/L Anion Gap 10.0 (6-13) BUN 17 (6-20) mg/dL Creatinine 0.6 (0.4-1.0) mg/dL Estimated GFR (MDRD) 101 (>89) Glucose 94 (70-100) mg/dL POC Whole Bld Glucose 106 H (70 - 100) mg/dL Calcium 8.5 (8.5-10.3) mg/dL Magnesium 2.2 (1.7-2.8) mg/dL Total Bilirubin 0.5 (0.2-1.0) mg/dL AST 17 (10-42) IU/L ALT 31 (10-60) IU/L Alkaline Phosphatase 142 H (42-121) IU/L B-Natriuretic Peptide 50 (5-100) pg/mL Total Protein 6.2 L (6.7-8.2) g/dL Albumin 2.9 L (3.2-5.5) g/dL Globulin 3.3 (2.1-4.2) g/dL Albumin/Globulin Ratio 0.9 L (1.0-2.2) 03/13/18 Range/Units 05:06 WBC 6.5 (4.8-10.8) x10^3/uL RBC 3.26 L (4.20-5.40) 10^6/uL Hgb 10.8 L (12.0-16.0) g/dL Hct 32.4 L (37.0-47.0) % MCV 99.4 H (81.0-99.0) fL MCH 33.0 H (27.0-31.0) pg MCHC 33.2 (32.0-36.0) g/dL RDW 13.5 (12.0-15.0) % Plt Count 354 (130-450) 10^3/uL MPV 7.9 (7.9-10.8) fL Neut # (Auto) 3.5 (1.5-6.6) 10^3/uL Lymph # (Auto) 2.1 (1.5-3.5) 10^3/uL [place] # (Auto) 0.6 (0.0-1.0) 10^3/uL Eos # (Auto) 0.3 (0.0-0.7) 10^3/uL Baso # (Auto) 0.0 (0.0-0.1) 10^3/uL Absolute Nucleated RBC 0.00 x10^3/uL Nucleated RBC % 0.1 /100WBC Sodium (135-145) mmol/L Potassium (3.5-5.0) mmol/L Chloride (101-111) mmol/L Carbon Dioxide (21-32) mmol/L Anion Gap (6-13) BUN (6-20) mg/dL Creatinine (0.4-1.0) mg/dL Estimated GFR (MDRD) (>89) Glucose (70-100) mg/dL POC Whole Bld Glucose (70 - 100) mg/dL Calcium (8.5-10.3) mg/dL Magnesium (1.7-2.8) mg/dL Total Bilirubin (0.2-1.0) mg/dL AST (10-42) IU/L ALT (10-60) IU/L Alkaline Phosphatase (42-121) IU/L B-Natriuretic Peptide (5-100) pg/mL Total Protein (6.7-8.2) g/dL Albumin (3.2-5.5) g/dL Globulin (2.1-4.2) g/dL Albumin/Globulin Ratio (1.0-2.2) - Diagnostic Imaging Diagnostic Imaging Results: positive: Final report reviewed ABX Reporting Has patient been on IV antibiotics over the past 48 hours?: No Assessment/Plan - Problem List (1) Atrial fibrillation Impression: The patient has a long history of atrial fibrillation and has had a recent CVA leaving her with left sided residual. She was previously prescribed Xorelto at home, which has been discontinued. She remains on Lovenox 40mg SQ daily, then on 03/17, she will be 10 days post op and will be restarted on Eliquis. Plan: Continue to monitor and watch for changes in neuro status. Qualifiers: Atrial fibrillation type: chronic Qualified Code(s): I48.2 - Chronic atrial fibrillation (2) Depression Impression: The patient has a history of major depressive disorder and has a flat affect much of the time. She was previously on Lexapro, but requested a reduction in her medications, so this was weaned off and now stopped. She denies suicidal ideation. Plan: continue to monitor for worsening mood and mental status. Qualifiers: Depression Type: unspecified Qualified Code(s): F32.9 - Major depressive disorder, single episode, unspecified (3) Diabetes type 2, controlled Impression: The patient is prescribed Jardiance at home, that was on hold as per hospital protocol while in patient. She was started on Lantus, that is now discontinued for hypoglycemia in the AM. A HgA1C was 8.6% at the time of admission. Plan: Continue to monitor, and cancel blood glucose checks. Qualifiers: Diabetes mellitus watermelon inspector insulin use: without fdc use Diabetes mellitus complication status: without complication Qualified Code(s): E11.9 - Type 2 diabetes mellitus without complications (4) Hip fracture, right Impression: The patient suffered a subcapital R hip fracture sustained after a mechanical ground level fall prior to presentation to the ED. She was ambulating with her walker, tripped, fell backwards onto her R hip, and was unable to return to standing or bear weight on her RLE. She denied any dizziness or syncope leading up to the fall or loss of consciousness. Her sister, who she has been staying with, assisted her off of the floor and imaging confirmed a right femur fracture. The patient did not have surgery immediately, instead waited for 48 hours for her Xarelto to wear off. She underwent surgical repair on 03/[address] Boudreaux. Plan: Physical therapy and watch for signs of bleeding. * The patient has had an extended stay due to lack of insurance approval from SNF. She is medically ready for discharge. 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 She has since had a left foot drop and is prescribed a brace that is uncomfortable for her to wear. The stroke was likely a result of her chronic atrial fib. She was previously on Xorelto, but will be started on Eliquis on day 10 post op as per conversation with ortho surgery. Plan: Fall precautions and plan to re-start chronic blood thinner on day 10 post op. (6) Osteoarthritis Impression: The patient has a new fracture and a history of osteoarthritis. She requests to take Vitamin D. Plan: Start Vitamin D in the AM. Qualifiers: Osteoarthritis location: spine Spinal region: unspecified (7) UTI (urinary tract infection) Impression: A urine sample was obtained in the ED, which showed a UTI. Since her CVA, she has been incontinent of urine, so this may be the likely culprit. Preliminary results show e. coli, with final sensitivities to Augmentin. She will be treated for at least 7 days. She will not be sent to the SNF on any antibiotics , as she has finished her course. Plan: Continue Augmentin based on culture results. Monitor urine out put. Qualifiers: Urinary tract infection type: acute cystitis Hematuria presence: without hematuria Qualified Code(s): N30.00 - Acute cystitis without hematuria
[2018-03-14] MEDS: KETOROLAC 10 MG TABLET PO PRN (00:51)
[2018-03-14 05:38] LABS: BASOPHILS % (AUTO) 0.1 %; EOSINOPHILS # (AUTO) 0.3 10^3/uL (0.0-0.7); EOSINOPHILS % (AUTO) 4.1 %; LYMPHOCYTES # (AUTO) 2.1 10^3/uL (1.5-3.5); LYMPHOCYTES % (AUTO) 32.4 %; MEAN CORPUSCULAR HEMOGLOBIN 32.4 pg (27.0-31.0); MEAN CORPUSCULAR VOLUME 95.3 fL (81.0-99.0); MEAN PLATELET VOLUME 7.3 fL (7.9-10.8); MONOCYTES # (AUTO) 0.6 10^3/uL (0.0-1.0); MONOCYTES % (AUTO) 8.7 %; NEUTROPHILS # (AUTO) 3.6 10^3/uL (1.5-6.6); NEUTROPHILS % (AUTO) 54.7 %; PLT - PLATELET COUNT 372 10^3/uL (130-450); RED BLOOD COUNT 3.07 10^6/uL (4.20-5.40); RED CELL DISTRIBUTION WIDTH 13.4 % (12.0-15.0); WHITE BLOOD COUNT 6.5 x10^3/uL (4.8-10.8)
[2018-03-14 05:52] LABS: ALBUMIN 2.6 g/dL (3.2-5.5); ALBUMIN/GLOBULIN RATIO 0.8 (1.0-2.2); BILIRUBIN,TOTAL 0.6 mg/dL (0.2-1.0); CALCIUM 8.4 mg/dL (8.5-10.3); CREATININE 0.7 mg/dL (0.4-1.0); MAGNESIUM 2.2 mg/dL (1.7-2.8); TOTAL PROTEIN 5.7 g/dL (6.7-8.2)
[2018-03-14] MEDS: INSULIN ASPART 300 UNIT/3 ML PEN SUBQ SCH ×2 (07:42→12:02)
[2018-03-14] MEDS: POLYETHYLENE GLYCOL 3350 17 GM PACKET PO SCH (08:04)
[2018-03-14] MEDS: DOCUSATE SODIUM 250 MG CAPSULE PO SCH (08:04)
[2018-03-14] MEDS: SENNA 8.6 MG TABLET PO SCH (08:04)
[2018-03-14] MEDS: SODIUM CHLORIDE FLUSH 0.9% 10 ML SYRINGE IVP SCH (08:04)
[2018-03-14] MEDS: CHOLECALCIFEROL 1,000 UNIT TABLET PO SCH ×2 (08:33→08:43)
[2018-03-14] MEDS: CLOPIDOGREL 75 MG TABLET PO SCH (08:33)
[2018-03-14] MEDS: diltiaZEM CD 120 MG CAPSULE PO SCH (08:33)
[2018-03-14] MEDS: ESCITALOPRAM 10 MG TABLET PO SCH (08:33)
[2018-03-14] MEDS: ENOXAPARIN 40 MG/0.4 ML SYRINGE SUBQ SCH (08:33)
[2018-03-14] MEDS: AMIODARONE 200 MG TABLET PO SCH (08:33)
[2018-03-14] MEDS: ZINC OXIDE 20% OINT 28.35 GM TUBE TOP SCH (08:34)
[2018-03-14] MEDS: NYSTATIN CREAM 15 GM TUBE TOP SCH (08:34)
[2018-03-14] MEDS: AMOX/CLAV 875 MG/125 MG TABLET PO SCH (08:42)
[2018-03-14] MEDS: ACETAMINOPHEN 325 MG TABLET PO PRN ×2 (08:47→14:14)
[2018-03-14 15:35] VITALS: BP 123/63
--- NOTE | 2018-03-14 18:19 | PROVIDER PROGRESS NOTE ---
Subjective - Prog Note Date Prog Note Date: 03/12/18 Prog Note Time: 08:00 - Subjective Pt reports feeling: Improved Subjective: Gato has no complaints and states that her sleep aide is working well for her. She has no new symptoms. Objective - Vital Signs/Intake & Output Reviewed Vital Signs: Yes Vital Signs: Vital Signs x48h Temp Pulse Resp BP Pulse Ox 03/14/18 15:33 37.1 C 85 18 123/63 96 Intake & Output: Intake & Output 03/11/18 03/12/18 03/13/18 03/14/18 23:59 23:59 23:59 23:59 Intake Total 800 760 800 640 Output Total 300 450 Balance 500 760 350 640 - Objective General Appearance: positive: No acute distress, Alert Eyes Bilateral: positive: Normal inspection, PERRL Eyes: OU Conjunctivae pale ENT: positive: ENT inspection nml, Pharynx nml, No signs of dehydration Neck: positive: Nml inspection, Thyroid nml, No JVD, Stiff neck Respiratory: positive: Chest non-tender, No respiratory distress, Breath sounds nml Cardiovascular: positive: No gallop, Irregularly irregular, Systolic murmur Peripheral Pulses: 1+ Radial (R), 1+ Radial (L) Abdomen: positive: Non-tender, Nml bowel sounds, Other (rounded obese) Back: positive: Nml inspection Skin: positive: No rash, Warm, Dry, Other (pale) Extremities: positive: Non-tender, Full ROM, Pedal edema, Joint swelling (right hip, with mild swelling. Post surgical site is CDI, without complications.) Neurologic/Psychiatric: positive: Oriented x3, CN's nml (2-12), Motor nml, Sensation nml, Depressed mood/affect Reflexes: Bicep (R): 2+, Bicep (L): 1+ - Lab Results Fish Bones: 03/14/18 05:29 03/14/18 05:29 Other Labs: Lab Results x24hrs 03/14/18 03/14/18 03/14/18 Range/Units 11:56 07:35 05:29 WBC (4.8-10.8) x10^3/uL RBC (4.20-5.40) 10^6/uL Hgb (12.0-16.0) g/dL Hct (37.0-47.0) % MCV (81.0-99.0) fL MCH (27.0-31.0) pg MCHC (32.0-36.0) g/dL RDW (12.0-15.0) % Plt Count (130-450) 10^3/uL MPV (7.9-10.8) fL Neut # (Auto) (1.5-6.6) 10^3/uL Lymph # (Auto) (1.5-3.5) 10^3/uL [place] # (Auto) (0.0-1.0) 10^3/uL Eos # (Auto) (0.0-0.7) 10^3/uL Baso # (Auto) (0.0-0.1) 10^3/uL Absolute Nucleated RBC x10^3/uL Nucleated RBC % /100WBC Sodium 138 (135-145) mmol/L Potassium 4.1 (3.5-5.0) mmol/L Chloride 103 (101-111) mmol/L Carbon Dioxide 29 (21-32) mmol/L Anion Gap 6.0 (6-13) BUN 16 (6-20) mg/dL Creatinine 0.7 (0.4-1.0) mg/dL Estimated GFR (MDRD) 85 L (>89) Glucose 110 H (70-100) mg/dL POC Whole Bld Glucose 136 H 115 H (70 - 100) mg/dL Calcium 8.4 L (8.5-10.3) mg/dL Magnesium 2.2 (1.7-2.8) mg/dL Total Bilirubin 0.6 (0.2-1.0) mg/dL AST 14 (10-42) IU/L ALT 23 (10-60) IU/L Alkaline Phosphatase 117 (42-121) IU/L Total Protein 5.7 L (6.7-8.2) g/dL Albumin 2.6 L (3.2-5.5) g/dL Globulin 3.1 (2.1-4.2) g/dL Albumin/Globulin Ratio 0.8 L (1.0-2.2) 03/14/18 03/13/18 Range/Units 05:29 20:29 WBC 6.5 (4.8-10.8) x10^3/uL RBC 3.07 L (4.20-5.40) 10^6/uL Hgb 10.0 L (12.0-16.0) g/dL Hct 29.3 L (37.0-47.0) % MCV 95.3 (81.0-99.0) fL MCH 32.4 H (27.0-31.0) pg MCHC 34.0 (32.0-36.0) g/dL RDW 13.4 (12.0-15.0) % Plt Count 372 (130-450) 10^3/uL MPV 7.3 L (7.9-10.8) fL Neut # (Auto) 3.6 (1.5-6.6) 10^3/uL Lymph # (Auto) 2.1 (1.5-3.5) 10^3/uL [place] # (Auto) 0.6 (0.0-1.0) 10^3/uL Eos # (Auto) 0.3 (0.0-0.7) 10^3/uL Baso # (Auto) 0.0 (0.0-0.1) 10^3/uL Absolute Nucleated RBC 0.00 x10^3/uL Nucleated RBC % 0.0 /100WBC Sodium (135-145) mmol/L Potassium (3.5-5.0) mmol/L Chloride (101-111) mmol/L Carbon Dioxide (21-32) mmol/L Anion Gap (6-13) BUN (6-20) mg/dL Creatinine (0.4-1.0) mg/dL Estimated GFR (MDRD) (>89) Glucose (70-100) mg/dL POC Whole Bld Glucose 151 H (70 - 100) mg/dL Calcium (8.5-10.3) mg/dL Magnesium (1.7-2.8) mg/dL Total Bilirubin (0.2-1.0) mg/dL AST (10-42) IU/L ALT (10-60) IU/L Alkaline Phosphatase (42-121) IU/L Total Protein (6.7-8.2) g/dL Albumin (3.2-5.5) g/dL Globulin (2.1-4.2) g/dL Albumin/Globulin Ratio (1.0-2.2) - Diagnostic Imaging Diagnostic Imaging Results: positive: Final report reviewed ABX Reporting Has patient been on IV antibiotics over the past 48 hours?: No Assessment/Plan - Problem List (1) Atrial fibrillation Impression: The patient has a long history of atrial fibrillation and has had a recent CVA leaving her with left sided residual. She was previously prescribed Xorelto at home, which has been discontinued. She will be on Lovenox 40mg SQ daily, then plan to restart Eliquis as this will be some what less likely to cause a bleed from her surgical site. Plan: Continue to monitor and watch for changes in neuro status. Qualifiers: Atrial fibrillation type: chronic Qualified Code(s): I48.2 - Chronic atrial fibrillation (2) Depression Impression: The patient has a history of major depressive disorder and has a flat affect much of the time. She was previously on Lexapro, but requested a reduction in her medications, so this was weaned off and now stopped. She denies suicidal ideation. Plan: continue to monitor for worsening mood and mental status. Qualifiers: Depression Type: unspecified Qualified Code(s): F32.9 - Major depressive disorder, single episode, unspecified (3) Diabetes type 2, controlled Impression: The patient is prescribed Jardiance at home, that was on hold as per hospital protocol while in patient. She was started on Lantus 10 units SQ,reduced to 5 units, since having lower early AM sugars. A HgA1C was 8.6% at the time of admission. Plan: Continue to monitor blood glucose and give Lantus Q 24 hours. Qualifiers: Diabetes mellitus long-term insulin use: without long-term use Diabetes mellitus complication status: without complication Qualified Code(s): E11.9 - Type 2 diabetes mellitus without complications (4) Hip fracture, right Impression: The patient presented to the ED on 03/05/18, but had been on Xarelto, so immediate surgery was postponed for 48 hours. She had suffered a subcapital R hip fracture sustained after a mechanical ground level fall. She was ambulating with her walker, tripped, fell backwards onto her R hip, and was unable to return to standing or bear weight on her RLE. She denied any dizziness or syncope leading up to the fall or loss of consciousness. Her sister, who she has been staying with, assisted her off of the floor and imaging confirmed a right femur fracture. She underwent surgical repair on with Dr. Boudreaux. Plan: Physical therapy and watch for signs of bleeding. 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 She has since had a left foot drop and is prescribed a brace that is uncomfortable for her to wear. The stroke was likely a result of her chronic atrial fib. She will be be started on Eliquis on day 10 post op as per conversation with ortho surgery. Plan: Fall precautions and plan to re-start chronic blood thinner on day 10 post op. (6) Osteoarthritis Impression: The patient has a new fracture and a history of osteoarthritis. She requests to take Vitamin D. Plan: Continue to monitor and she will likely be started on a supplement upon discharge. Qualifiers: Osteoarthritis location: spine Spinal region: unspecified (7) UTI (urinary tract infection) Impression: A urine sample was obtained in the ED, which showed a UTI. Since her CVA, she has been incontinent of urine, so this may be the likely culprit. Results show e. coli, with final sensitivities to Augmentin. She will be treated for at least 7 days. Plan: Continue Augmentin based on culture results. Monitor urine out put. Qualifiers: Urinary tract infection type: acute cystitis Hematuria presence: without hematuria Qualified Code(s): N30.00 - Acute cystitis without hematuria
== END 2018-03-14 16:10 | DRG 470 ==
LOC: EDUNIT# → ED 22:52 → MS3 23:59
PROVIDERS: ADMIT Specialist; ATTEND Nurse Practitioner
PROC: 0SRR01A Replacement of Right Hip Joint, Femoral Surface with Metal Synthetic Substitute, Uncemented, Open Approach (ICD-10-PCS; principal; 2018-03-07 09:30)
DX: M80.051A Age-related osteoporosis with current pathological fracture, right femur, initial encounter for fracture (principal); N30.00 Acute cystitis without hematuria; I69.954 Hemiplegia and hemiparesis following unspecified cerebrovascular disease affecting left non-dominant side; I48.2 Chronic atrial fibrillation; E11.9 Type 2 diabetes mellitus without complications; I69.992 Facial weakness following unspecified cerebrovascular disease; I69.993 Ataxia following unspecified cerebrovascular disease; F32.9 Major depressive disorder, single episode, unspecified; I69.998 Other sequelae following unspecified cerebrovascular disease; R15.9 Full incontinence of feces; R32 Unspecified urinary incontinence; M19.90 Unspecified osteoarthritis, unspecified site; B96.20 Unspecified Escherichia coli [E. coli] as the cause of diseases classified elsewhere; I10 Essential (primary) hypertension; G89.29 Other chronic pain; M54.9 Dorsalgia, unspecified; R51 Headache; E78.5 Hyperlipidemia, unspecified; L30.9 Dermatitis, unspecified; Z79.84 Long term (current) use of oral hypoglycemic drugs; Z79.01 Long term (current) use of anticoagulants; Z91.81 History of falling; Z95.5 Presence of coronary angioplasty implant and graft
CPT/HCPCS: 36415; 71045; 72170; 80048; 80053; 81001; 83036; 83540; 83690; 83735; 83880; 84100; 84466; 85025; 85610; 85730; 87077; 87086; 87181; 93005; 93306; 99284; 99285

== ENCOUNTER 2018-03-22 08:00 | Outpatient (CLI) | payer OTHER, MEDICAID ==
[2018-03-22 22:33] LABS: BASOPHILS % (AUTO) 0.5 %; EOSINOPHILS # (AUTO) 0.2 10^3/uL (0.0-0.7); EOSINOPHILS % (AUTO) 3.3 %; HGB - HEMOGLOBIN 11.8 g/dL (12.0-16.0); LYMPHOCYTES # (AUTO) 1.7 10^3/uL (1.5-3.5); LYMPHOCYTES % (AUTO) 24.1 %; MEAN CORPUSCULAR HEMOGLOBIN 32.2 pg (27.0-31.0); MEAN CORPUSCULAR HGB CONC 33.4 g/dL (32.0-36.0); MEAN CORPUSCULAR VOLUME 96.1 fL (81.0-99.0); MEAN PLATELET VOLUME 7.9 fL (7.9-10.8); MONOCYTES # (AUTO) 0.5 10^3/uL (0.0-1.0); MONOCYTES % (AUTO) 6.6 %; NEUTROPHILS # (AUTO) 4.7 10^3/uL (1.5-6.6); NEUTROPHILS % (AUTO) 65.5 %; PLT - PLATELET COUNT 446 10^3/uL (130-450); RED BLOOD COUNT 3.66 10^6/uL (4.20-5.40); RED CELL DISTRIBUTION WIDTH 13.9 % (12.0-15.0); WHITE BLOOD COUNT 7.2 x10^3/uL (4.8-10.8)
[2018-03-22 22:35] LABS: CALCIUM 8.8 mg/dL (8.5-10.3); CREATININE 0.8 mg/dL (0.4-1.0)
== END 2018-03-22 08:01 | disposition home or self-care (01) ==
LOC: LAB.R 08:00
DX: I10 Essential (primary) hypertension (principal); D64.9 Anemia, unspecified
CPT/HCPCS: 80048; 85025